=== PATIENT | female | born 1965 | race Caucasian/White ===

== ENCOUNTER → 2017-06-01 09:21 | Outpatient (CLI) | payer OTHER, SELFPAY ==
--- NOTE | 2017-06-01 09:24 | RAD_ITS ---
STUDY: X-RAY CHEST REASON FOR EXAM: Female, 52 years old. 2 month history of cough. TECHNIQUE: PA and lateral views of the chest. COMPARISON: None. FINDINGS: The lungs are clear and expanded. There is no demonstrated pleural abnormality. Normal size heart. Normal mediastinum and apolinar. Normal visualized pulmonary arteries. Normal visualized aortic arch and descending thoracic aorta. Minimal dextroscoliosis. Normal visualized ribs, clavicles, and shoulders. There is no demonstrated abnormality of the visualized soft tissue structures of the upper abdomen. RAD/Chest PA and Lateral IMPRESSION: Normal x-ray examination of the chest. Electronically Signed: Trevon Soni MD at 9:55 EST Tel [phone], Service support ,
== END ==
PROVIDERS: Family Provider Family Medicine; PCP Family Medicine; Visit Provider Family Medicine
DX: R05 Cough (principal)
CPT/HCPCS: 71046

== ENCOUNTER 2017-06-07 14:00 | Outpatient (RCR) | payer OTHER, SELFPAY ==
--- NOTE | 2017-05-24 14:53 | HP.PTEVAL ---
Patient's Visit Information BLANCA TOWNSEND is a 52 year old F referred to Physical Therapy by MD GALLO Castillo with a diagnosis of TMJ. Date of Evaluation: 05/24/17 Physical Therapist: Aparna Liriano - Visit Plan Frequency: 2x /Week Duration: 2 Weeks Plan: Dry Needling and manual to TMJ - Subjective Subjective: Patient reports 2 months ago she started having clicking on the right side of her jaw. Had the same problem a few years ago and it lasted about a month then went away. This episode is not going away. Is now grinding her teeth and feels like she is trying to get it pop and click. Saw massage therapist and she was digging in there and suggested dry needling and physical therapy. Has CANELA secondary to tired jaws. Tension headaches- letting the jaw hang down or glass of wine to relax it goes away. Not normally a CANELA. Crunchy things bother her. Not hard to open just cracks. No pain associated with it opening but when she bites down it aches. No teeth problems- past cavaties but are filled- last time she was the dentist was about a year ago- no x-rays. Pain is right in the TMJ joint- does not radiate. No tinnities or ear pain. No blurred vision or dizziness. No notice of weakness or facial droop. Work: at [employer]- x-rays- no heavy lifting. Sleep: wakes her up- side sleeper- both sides. PMHx: melanoma, polyps of colon, Meds: none. - Objective Posture: good throughout. Cervical ROM: WNL. TMJ ROM: opening: WNL with deviation to the right. Palpation: tender along masseter, pterygoids and SCM - Goals Goal 1:: Patient will be I with HEP and progression Goal Time Frame: 4-6 Weeks Goal 2:: Patient will open her jaw with no deviation Goal Time Frame: 4-6 Weeks Goal 3:: Patient will report 0/10 pain for 1 week Goal Time Frame: 4-6 Weeks - Rehabilitation Potential Physical Therapy Diagnosis: Patient presents with hypomobility- she has decreased normal opening of the jaw and pain daily. Rehabilitation Potential: Good - Anticipated Interventions Patient/Client Instruction: Educate patient on: Benefits of Fitness Program For the Purpose of:: To increase tolerance to activity/condition/position Therapeutic Exercise to Include: Strength training, Endurance training, Postural training Manual Therapy Techniques to Include: Functional dry needling, Soft tissue mobilization For the Purpose of:: To improve nutrient delivery to tissue Thank you for the opportunity to evaluate your patient. For Medicare and Medicare HMO plans, please review the plan of care and approve it. It will need to be FAXED BACK to us at [phone] for Medicare purposes. Please let me know if there are questions or concerns regarding this plan of care. Physician Signature: Date:
--- NOTE | 2017-11-27 13:39 | HP.PT.NRP ---
HP - Discharge Summary (1) - Patient Information BLANCA TOWNSEND was seen in my office for initial evaluation on 05/24/17. The following Plan of Care was established for this patient: Initial Frequency: 2x /Week Initial Duration: 2 Weeks - Anticipated Interventions Patient/Client Instruction: Educate patient on: Benefits of Fitness Program For the Purpose of:: To increase tolerance to activity/condition/position Therapeutic Exercise to Include: Strength training, Endurance training, Postural training Manual Therapy Techniques to Include: Functional dry needling, Soft tissue mobilization For the Purpose of:: To improve nutrient delivery to tissue This patient was last seen in our office . Pertinent comments regarding their Physical therapy will appear below: Patient was to be seen on PRN basis and has not attended PT in 5 months and is appropriate for d/c At this point I will be discontinuing this patient from physical therapy. I would be happy to see this patient again in the future if found appropriate by the physician. Thank you! Aparna Liriano
== END 2017-06-07 19:00 | disposition home or self-care (01) ==
LOC: PT 14:00
PROVIDERS: Family Provider Family Medicine; PCP Family Medicine; Visit Provider Family Medicine
DX: M26.609 Unspecified temporomandibular joint disorder, unspecified side (principal)
CPT/HCPCS: 97140; 97162

== ENCOUNTER → 2017-08-26 10:58 | Outpatient (CLI) | payer OTHER, SELFPAY ==
--- NOTE | 2017-08-26 11:02 | US_ITS ---
STUDY: ULTRASOUND BREAST - LEFT REASON FOR EXAM: Female, 52 years old. Follow-up from previous nodule. TECHNIQUE: Axial and longitudinal images of the LEFT breast were performed with a high resolution ultrasound transducer. COMPARISON: 05/15/2017 FINDINGS: LEFT Breast: Stable appearance of a well-defined likely lymph node measuring 0.7 x 0.5 x 0.2 cm at the 2:00 position 5 cm from the nipple. This hypoechoic nodule containing a fatty hilum. There is no interval change since the previous study. US/Breast Limited Unilateral IMPRESSION: Stable likely benign lymph node in the upper-outer quadrant of left breast. Another six-month follow-up recommended to assure stability ASSESSMENT CATEGORY: BIRADS Category 3: Probably Benign - Short-Interval Follow-up Suggested. A letter regarding these results will be sent to the patient by the facility within 30 days. Electronically Signed: Javier South MD at 7:58 EDT , Service support ,
== END ==
PROVIDERS: Family Provider Family Medicine; PCP Family Medicine; Visit Provider Obstetrics & Gynecology
DX: N63.0 Unspecified lump in unspecified breast (principal)
CPT/HCPCS: 76642

== ENCOUNTER → 2017-09-27 09:27 | Outpatient (CLI) | payer OTHER, SELFPAY ==
--- NOTE | 2017-09-27 09:30 | RAD_ITS ---
STUDY: X-RAY - RIGHT KNEE REASON FOR EXAM: Female, 52 years old. Pain TECHNIQUE: 4 view(s) of the knee. COMPARISON: None. FINDINGS: Normal visualized distal femur. Normal visualized proximal tibia and fibula. Normal proximal tibiofibular articulation. Normal medial femorotibial compartment. Normal lateral femorotibial compartment. Normal patellofemoral articulation. The soft tissue structures are unremarkable. RAD/Knee 4 or More Views IMPRESSION: Normal x-ray examination of the knee. Electronically Signed: John High DO at 23:20 EDT , Service support ,
== END ==
PROVIDERS: Family Provider Family Medicine; PCP Family Medicine; Visit Provider Family Medicine
DX: M25.561 Pain in right knee (principal)
CPT/HCPCS: 73564

== ENCOUNTER 2017-10-06 05:55 | Day surgery (SDC) | payer OTHER, SELFPAY ==
--- NOTE | 2017-10-06 05:55 | DT_ITS ---
This patient was seen during an EMR downtime October 02, 2017 - October 09, 2017. This patient may have a combination of paper and electronic documentation or all paper documentation. All documentation is viewable within the e-chart portion of [facility] for each patient visit.
== END 2017-10-06 07:55 | disposition home or self-care (01) ==
LOC: EN 05:56 → AC 09:18
PROVIDERS: Family Provider Family Medicine; PCP Family Medicine; Visit Provider Surgery
PROC: 0DJD8ZZ Inspection of Lower Intestinal Tract, Via Natural or Artificial Opening Endoscopic (ICD-10-PCS; CPT 45378; principal; 2017-10-06 06:25)
DX: Z12.11 Encounter for screening for malignant neoplasm of colon (principal); Z86.010 Personal history of colon polyps; Z80.0 Family history of malignant neoplasm of digestive organs
CPT/HCPCS: 45378; 99152; 99153; J7120

== ENCOUNTER → 2017-11-16 11:17 | Outpatient (CLI) | payer OTHER, SELFPAY ==
[2017-11-21 15:52] LABS: HPV Reflexed? NOT INDICATED
== END ==
PROVIDERS: Visit Provider Obstetrics & Gynecology
DX: Z12.4 Encounter for screening for malignant neoplasm of cervix (principal)
CPT/HCPCS: 88175; G0145

== ENCOUNTER → 2017-12-01 06:28 | Outpatient (CLI) | payer OTHER, SELFPAY ==
--- NOTE | 2017-12-01 07:00 | MRI_ITS ---
STUDY: MRI BRAIN WITH AND WITHOUT CONTRAST REASON FOR EXAM: Female, 52 years old. Debilitating headaches. History of melanoma. New onset of headaches behind left eye/left temporal area. TECHNIQUE: Standardized multiplanar fat and water weighted pulse sequences were obtained. 6 ml of Gadavist contrast material was administered intravenously for the contrast portion of the examination. COMPARISON: None. FINDINGS: No restricted diffusion throughout the brain parenchyma. No focal signal abnormalities throughout the brain parenchyma. The garcia matter, white matter, ventricles and cisterns are normal. Following IV contrast administration, there are no enhancing lesions extra-axially and intraaxially. Normal size of the ventricles and extra-axial spaces for the patient's age. Normal white matter tracts of the supratentorial brain. Normal bilateral basal ganglia. Normal thalami. There is no extra-axial fluid accumulation. Normal flow voids within the major intracranial circulation suggesting patency by spin echo criteria. Normal venous enhancement. There is no enhancing intra-axial or extra-axial abnormality. Normal sella turcica, pituitary gland, infundibular stalk, optic chiasm and hypothalamus. Normal tectal plate and pineal gland. Normal midbrain, cleopatra and medulla. Normal cerebellum. Normal basal cisterns. Normal bilateral temporal bones. Normal bilateral internal auditory canals. No demonstrated orbital abnormality, within the constraints of a routine brain study. Pronounced the mucosal thickening with complete opacification of the left frontal sinus, pronounced mucosal thickening of the left maxillary sinus and pronounced mucosal thickening of the left ethmoid sinus. Normal calvarium and skull base. Normal visualized soft tissue structures. Normal visualized upper cervical spine. MRI/Brain W/WO Contrast IMPRESSION: 1. Normal MRI of the brain with and without intravenous contrast. 2. Pronounced left-sided sinusitis involving the left frontal sinus, left ethmoid sinus and left maxillary sinus. Electronically Signed: Bartolo Arzola MD at 12:51 EDT , Service support ,
== END ==
PROVIDERS: Family Provider Family Medicine; PCP Family Medicine; Visit Provider Family Medicine
DX: R51 Headache (principal); Z85.820 Personal history of malignant melanoma of skin
CPT/HCPCS: 70553; A9585

== ENCOUNTER → 2018-04-10 09:34 | Outpatient (CLI) | payer OTHER, SELFPAY ==
--- NOTE | 2018-04-10 09:36 | US_ITS ---
STUDY: ULTRASOUND BREAST - LEFT REASON FOR EXAM: Female, 53 years old. Abnormal screening mammogram. TECHNIQUE: Axial and longitudinal images of the LEFT breast were performed with a high resolution ultrasound transducer. COMPARISON: Comparison is made with prior ultrasound of the left breast dated August 26, 2017. FINDINGS: LEFT Breast: Once again, there is a stable appearance of a well-defined hypoechoic nodule with central echogenic hilum measuring 7 mm x 4 mm x 2 mm at the 2:00 position breast at 5 cm from nipple. US/Breast Limited Unilateral IMPRESSION: Stable examination. ASSESSMENT CATEGORY: BIRADS Category 2: Benign. A letter regarding these results will be sent to the patient by the facility within 30 days. Electronically Signed: Trevon Soni MD at 11:09 EST Tel [phone], Service support ,
--- OUTSIDE RECORDS SUMMARY | 2018-05-27 08:47 | XMS RPT_ITS ---
:1965 Author Organization [place] Support Name Relationship Address Phone AP ALFRED Unavailable [id number] + [address] Unavailable [address] + [place] [address] [facility] Unavailable [address] + [place] [address] TIMAAP ARAUZ Unavailable [address] + [place], [place] [id number] [place] [address] [facility] Unavailable [address] + [place] [address] [facility] Unavailable [address] + [place] [address] TIMA AP Unavailable [address] + [place], [place] [id number] [place] [address] + [place] [address] [facility] Unavailable [address] + [place] [address] AP ALFRED Unavailable [address] + [address] Unavailable [address] + [place] [address] [facility] Unavailable [address] + [place] [address] AP ALFRED Unavailable [address] + [address] [facility] Unavailable [address] + [place] [address] [facility] Unavailable [address] + [place] [address] AP ALFRED Unavailable [address] + [place] [address] [place] [facility] Unavailable [address] + [place] [address] [facility] Unavailable [address] + [place] [address] AP ALFRED Unavailable [address] + [place] [address] [place] [facility] Unavailable [address] + [place] [address] [facility] Unavailable [address] + [place] [address] AP ALFRED Unavailable [address] + [place], [place] [address] [place] [address] [facility] Unavailable [address] + [place] [address] [facility] Unavailable [address] + [place] [address] AP ALFRED Unavailable [address] + [place], [place] [address] [place] [address] [facility] Unavailable [address] + [place] [address] [facility] Unavailable [address] + [place] [address] AP ALFRED Unavailable [address] + [place], [place] [id number] [place] [address] [facility] Unavailable [address] + [place] [address] [facility] Unavailable [address] + [place] [address] AP ALFRED Unavailable [address] + [place], [place] [address] [place] [address] [facility] Unavailable [address] + [place] [address] [facility] Unavailable [address] + [place] [address] AP ALFRED Unavailable [address] + [place], [place] [address] [place] [address] [facility] Unavailable [address] + [place] [address] [facility] Unavailable [address] + [place] [address] AP ALFRED Unavailable [address] + [place] [address] [facility] [address] + [place] [address] [facility] Unavailable [address] + [place] [address] AP ALFRED Unavailable [address] + [place], [place] [address] [place] [address] Unavailable [address] + [place] [address] [facility] Unavailable [address] + [place] [address] AP ALFRED Unavailable [address] + [place], [place] [address] [place], [place] [address] Unavailable [address] + [place] [address] [facility] Unavailable [address] + [place] [address] Care Team Providers Name Role Phone Mirtha Connor Attending Unavailable Keon, Chaka Referring Unavailable Mirtha Call Attending Unavailable Mirtha Call Referring Unavailable Keon, Chaka Primary Care Unavailable DOCTOR, OUT OF TOWN Attending Unavailable Jeremiah Thompson Primary Care Unavailable Chaka Herbert Attending Unavailable Keon, Chaka Primary Care Unavailable Keon, Chaka Referring Unavailable KeonChaka garcia Attending Unavailable Keon, Chaka Referring Unavailable Keon, Chaka Primary Care Unavailable KeonChaka garcia Attending Unavailable Keon, Chaka Referring Unavailable Keon, Chaka Primary Care Unavailable Mirtha Call Attending Unavailable Mirtha Call Referring Unavailable Keon, Chaka Primary Care Unavailable Nurse, Surgery Attending Unavailable Keon, Chaka Referring Unavailable KeonChaka garcia Attending Unavailable Keon, Chaka Referring Unavailable Keon, Chaka Primary Care Unavailable Markus Turner Attending Unavailable Markus Turner Referring Unavailable Keon, Chaka Primary Care Unavailable ASSESSMENT, HEALTH RISK Attending Unavailable ASSESSMENT, HEALTH RISK Referring Unavailable Keon, Chaka Primary Care Unavailable Mirtha Call Attending Unavailable Markus Turner Attending Unavailable Keon, Chaka Attending Unavailable Keon, Chaka Referring Unavailable Keno, Chaka Primary Care Unavailable Mirtha Call Attending Unavailable Mirtha Call Referring Unavailable Chaka Herbert Primary Care Unavailable PROBLEMS PROBLEMS DATE TYPE CONDITION / CODE ATTENDING STATUS SOURCE 05/04/2018 Unknown 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, 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, right thumb / [facility] M65.311(ICD-10) Hospital Repository 04/30/2018 Unknown M54.2 - Cervicalgia / Keon Chaka Active [place] M54.2(ICD-10) [facility] Hospital Repository 04/10/2018 Unknown N63.20 - Unspecified Mirtha Call Active [place] lump in the left Community breast, unspecified Hospital quadrant / Repository N63.20(ICD-10) 11/16/2017 Unknown Z12.4 - Encounter for Mirtha Call Active [facility] screening for Community malignant neoplasm of Hospital cervix / Z12.4(ICD-10) Repository 11/17/2017 Unknown Z86.010 - Personal CebuMarkus nieves Active [place] history of colonic Community polyps / Hospital Z86.010(ICD-10) Repository 11/17/2017 Unknown Z80.0 - Family history Markus Turner Active [facility] of malignant neoplasm Community of digestive organs / Hospital Z80.0(ICD-10) Repository 08/26/2017 Unknown N63.0 - Unspecified Mirtha Call Active [place] lump in unspecified Community breast / N63.0(ICD-10) Hospital Repository 11/27/2017 Unknown M26.609 - Unspecified Chaka Herbert Active [place] temporomandibular [facility] joint disorder, Hospital unspecified side / Repository M26.609(ICD-10) PROCEDURES PROCEDURES No Procedure Records FoundRESULTS RESULTS SCREENING MAMM (CAD), Observed: 05/17/2018 Status: F Source: [place] BILAT 1:37 PM [facility] REPOSITORY [facility] Imaging Services [address] [place] [address] SCREENING MAMM (CAD), BILAT MR#: [id number] Acct: [id number] Name: NADINE TOWNSEND Rep #: [id number] : 1965 F 53 From: Trevon Soni MD PCP: Chaka Herbert MD Status: REG CLI Study: SCREENING MAMM (CAD), BILAT Date of Exam: 05/17/18 Exam# [id number] Ordering Dr: Mirtha Call MD MAMMOGRAPHY - BILATERAL SCREENING REASON FOR EXAM: Female, 53 years old. Routine annual screening examination. PERTINENT HISTORY: Non-contributory. TECHNIQUE: Digital bilateral breast katie (3D mammographic acquisition) in the CC and MLO projections. 2-D mediolateral oblique (MLO) and craniocaudad (CC) views of both breasts were obtained. CAD: Full Field Digital Mammography with Computer Added Detection was performed. COMPARISON: Comparison is made with prior study dated May 11, 2017 and April 22, 2016. FINDINGS: Breast Composition: The breasts are heterogeneously dense, which may obscure small masses. There are no dominant masses or suspicious calcifications. No other significant abnormalities are identified. There has been no significant change since the prior study. BI/SCREENING MAMM (CAD), BILAT IMPRESSION: Stable bilateral screening mammogram. Yearly follow-up mammogram recommended. (A) ASSESSMENT CATEGORY: BIRADS Category 2: Benign. A letter regarding these results will be sent to the patient by the facility within 30 days. Approximately 10% of breast cancers are not detected by mammography. A normal mammogram should not delay biopsy of a clinically suspicious abnormality. [id number] Electronically Signed: Trevon Soni MD at 14:50 EST Tel [phone], Service support , CC: Mirtha Call MD; Chaka Herbert MD Woven Label Designer: Signed ORTHOPEDIC VISIT Observed: 05/04/2018 Status: F Source: [place] REPORT 11:16 AM [facility] [place] [facility] [address] [place] [address] OFFICE VISIT Date of Service: 05/04/18 MR#: [id number] Acct: [id number] Name: NADINE TOWNSEND Rep #: [id number] : 1965 Provider: Mirtha Connor DO Age/Sex: 53/F [place] [facility] [place]: Signed Intake Intake Visit Reasons: right thumb Allergies latex Allergy (Intermediate, Verified 09/09/14 09:33) Rash Penicillins Allergy (Intermediate, Verified 09/09/14 09:33) HIVES ?? Medications Ibuprofen [Motrin] 800 mg PO TID PRN PRN #60 tab 09/15/14 [Rx] Oxycodone HCl/Acetaminophen [Percocet 5/325] 1 - 2 tab PO Q4H PRN PRN #20 tab 09/15/14 [Rx] sodium,potassium,mag sulfates 17.5 gram-3.13 gram-1.6 gram oral soln 200 ml PO ONCE #354 ml 09/07/17 [Rx] PFSH Social History Smoking Status: Never smoker HPI right thumb: Details: NADINE TOWNSEND is a 53 year old F here today for right trigger thumb. It is getting worse over the last month. She denies any OT or xrays. Denies numbness, tingling or other associated symptoms. Ortho Exam Right Wrist/Hand Skin/Wound: Yes CDI Contralateral Normal: Yes A1 lorne trigger: Yes WRIST: right thumb trigger Office Procedures Ortho Injections Injections Yes Trigger Finger Injection Right Details: Obtained consent for injection. Under sterile conditions, injected the patients right thumb A1 lorne with 1cc bupivacaine and 1/2cc kenalog. The patient tolerated the injection well without any noted complication. Patient should call our office if redness develops, pain worsens or if they have any concerns. Office Meds Kenalog Performing Provider: Mirtha Connor DO Administered by: Mirtha Connor DO on 05/04/18 09:34 Dose Route Admin Location Lot Number Expiration DateNDC Crank Hand 20 mg Tendon Sheath Iright trigger [id number] 06/30/19 3185-6838-25 [facility]. humb SQUIBB Assessment AND Plan 1. Trigger thumb, right thumb M65.311 Plan xrays of hand completed. see chart for further details. Reviewed the risk and benefits of steroid injection, if this fails we will discuss a release. She has palpable nodule and triggering on exam. Follow up 3-4 months if needed or sooner if pain, swelling, numbness or associated symptoms, or concerns develop. All questions answered. Patient in agreement of plan. Orders Orders: Medications Discontinued: Kenalog (triamcinolone acetonide) [id number] mg (0.5 mL) Tendon Sheath Inj. ONCE 0.5 mL nued Reason: Office Medication has been Docu 0RF NS mented as given Coding Level of Care Code Off vis,new,level 3 Diagnoses Trigger thumb, right thumb M65.311 Additional Codes casualty claim adjuster.trig ([id number]) 05/04/18 1116 <Electronically signed by Mirtha Connor DO> Date Mirtha Connor DO Cosigner Signature: Date (if applicable) CC: DISCHARGE SUMMARY Observed: 04/30/2018 Status: F Source: [place] 11:02 AM [facility] [place] [facility] Medical Records Department [address] [place] [address] Discharge Summary 04/30/18 1058 MR#: [id number] Acct: [id number] Name: NADINE TOWNSEND Rep #: [id number] : 1965 53 From: Katie Hickman PCP: Chaka Herbert MD Status: REG RCR Y Location: [facility] Discharge Summary: Discharge Date: 04/30/2018 Nadine was seen for a massotherapy evaluation on 05/18/2017 with the diagnosis of back pain. She was treated with ten sessions of massage therapy consisting of deep pressure soft tissue techniques, myofascial release and trigger point compression to her cervical, thoracic, lower back, upper extremities and hips. Nadine responded well to the therapy by reporting decreased tension and pain throughout her head, neck, shoulders, lower back and hips. Her goals for therapy were met throughout the treatment sessions. At this time this patient is being discharged from our care at [facility]. 04/30/18 1102 <Electronically signed by Katie Hickman > Date Katie Hickman Cosigner Signature (if applicable): Date CC: Katie Hickman; Chaka Herbert MD Signed BREAST LIMITED Observed: 04/10/2018 Status: F Source: [place] UNILATERAL 9:38 AM [facility] [place] [facility] Imaging Services [address] [place] [address] Breast Limited Unilateral MR#: [id number] Acct: [id number] Name: NADINE TOWNSEND Mirta Rep #: [id number] : 1965 F 53 From: Trevon Soni MD PCP: Chaka Herbert MD Status: REG CLI Study: Breast Limited Unilateral Date of Exam: 04/10/18 Exam# [id number] Ordering Dr: Mirtha Call MD STUDY: ULTRASOUND BREAST - LEFT REASON FOR EXAM: Female, 53 years old. Abnormal screening mammogram. TECHNIQUE: Axial and longitudinal images of the LEFT breast were performed with a high resolution ultrasound transducer. COMPARISON: Comparison is made with prior ultrasound of the left breast dated August 26, 2017. FINDINGS: LEFT Breast: Once again, there is a stable appearance of a well-defined hypoechoic nodule with central echogenic hilum measuring 7 mm x 4 mm x 2 mm at the 2:00 position breast at 5 cm from nipple. US/Breast Limited Unilateral IMPRESSION: Stable examination. ASSESSMENT CATEGORY: BIRADS Category 2: Benign. A letter regarding these results will be sent to the patient by the facility within 30 days. Electronically Signed: Trveon Soni MD at 11:09 EST Tel [phone], Service support , CC: Mirtha Call MD; Chaka Herbert MD Woven Label Designer: Signed BRAIN W/WO CONTRAST Observed: 12/01/2017 Status: F Source: [place] 6:36 AM [facility] [place] [facility] Imaging Services [address] [place] [address] Brain W/WO Contrast MR#: [id number] Acct: [id number] Name: NADINE TOWNSEND Rep #: [id number] : 1965 F 52 From: Bartolo Arzola MD PCP: Chaka Herbert MD Status: REG CLI Study: Brain W/WO Contrast Date of Exam: 12/01/17 Exam# [id number] Ordering Dr: Chaka Herbert MD STUDY: MRI BRAIN WITH AND WITHOUT CONTRAST REASON FOR EXAM: Female, 52 years old. Debilitating headaches. History of melanoma. New onset of headaches behind left eye/left temporal area. TECHNIQUE: Standardized multiplanar fat and water weighted pulse sequences were obtained. 6 ml of Gadavist contrast material was administered intravenously for the contrast portion of the examination. COMPARISON: None. FINDINGS: No restricted diffusion throughout the brain parenchyma. No focal signal abnormalities throughout the brain parenchyma. The garcia matter, white matter, ventricles and cisterns are normal. Following IV contrast administration, there are no enhancing lesions extra-axially and intraaxially. Normal size of the ventricles and extra-axial spaces for the patient's age. Normal white matter tracts of the supratentorial brain. Normal bilateral basal ganglia. Normal thalami. There is no extra-axial fluid accumulation. Normal flow voids within the major intracranial circulation suggesting patency by spin echo criteria. Normal venous enhancement. There is no enhancing intra-axial or extra-axial abnormality. Normal sella turcica, pituitary gland, infundibular stalk, optic chiasm and hypothalamus. Normal tectal plate and pineal gland. Normal midbrain, cleopatra and medulla. Normal cerebellum. Normal basal cisterns. Normal bilateral temporal bones. Normal bilateral internal auditory canals. No demonstrated orbital abnormality, within the constraints of a routine brain study. Pronounced the mucosal thickening with complete opacification of the left frontal sinus, pronounced mucosal thickening of the left maxillary sinus and pronounced mucosal thickening of the left ethmoid sinus. Normal calvarium and skull base. Normal visualized soft tissue structures. Normal visualized upper cervical spine. MRI/Brain W/WO Contrast IMPRESSION: 1. Normal MRI of the brain with and without intravenous contrast. 2. Pronounced left-sided sinusitis involving the left frontal sinus, left ethmoid sinus and left maxillary sinus. Electronically Signed: Bartolo Arzola MD at 12:51 EDT , Service support , CC: Chaka Herbert MD Woven Label Designer: Signed PAP I-G W/RFX HRHPV Collected: 11/16/2017 Status: F Source: [place] 10:20 AM [facility] [place] Order Comment: CYTOLOGY INFORMATION: - CLINICAL INFORMATION: - DATE LMP/MENOPAUSE: MENOPAUSE - COLLECTION VIAL: Thin Prep Vial - BOAT DECKHAND SOURCE: CERVICAL/ENDOCERVICAL - COLLECTION TECHNIQUE: BRUSH/SPATULA Specimen Comment: [id number] Specimen Comment: No. of containers..01 ThinPrep Vial TYPE CODE TESTS RESULT OUT OF RANGE REFERENCE UNITS LAB L7400.0800 . Normal DIAGN Comment Result Comment: NEGATIVE FOR INTRAEPITHELIAL LESION AND MALIGNANCY. CELLULAR CHANGES ASSOCIATED WITH ATROPHY ARE PRESENT. LAB L7400.0900 . Normal ADEQ Comment Result Comment: Satisfactory for evaluation. Endocervical and/or squamous metaplastic cells (endocervical component) are present. LAB L7400.1400 . Normal PERFORM Comment Result Comment: Azucena Neumann, Energy Control Officer (ASCP) LAB L7400.3645 . Normal TEST METHOD Comment Result Comment: This liquid based ThinPrep(R) pap test was screened with the use of an image guided system. LAB L7400.2600 . Normal . COMM LAB L7400.2700 . Normal PAPSMR Comment Result Comment: The Pap smear is a screening test designed to aid in the detection of premalignant and malignant conditions of the uterine cervix. It is not a diagnostic procedure and should not be used as the sole means of detecting cervical cancer. Both false-positive and false-negative reports do occur. LAB L7400.2800 . Normal HPV RFLX Comment Result Comment: The HPV DNA reflex criteria were not met with this specimen result therefore, no HPV testing was performed. Performed at: [facility] [address] [id number] Gl Accountant: Letty Thompson MD, Phone: [phone] Performed By: #### L7400.0350 #### [facility] (refer to report for specific site) refer to report for address and phone number NICOTINE URINE DRUG Collected: 10/26/2017 Status: F Source: [place] SCREEN 7:40 AM [facility] [place] TYPE CODE TESTS RESULT OUT OF RANGE REFERENCE UNITS LAB L505.6250 TO BE Normal CONFIRMED Result Comment: CONFIRMATORY TESTING FOR ALL POSITIVE URINE DRUG SCREEN RESULTS WILL ONLY BE SENT OUT UPON PHYSICIAN ORDER. The results of Urine Drug Screen methods provide only preliminary analytical test results. A more specific alternate chemical method must be used in order to obtain a confirmed analytical result. Gas chromatography/mass spectrometery (GC/MS) is the preferred confirmatory method. Clinical consideration and professional judgement should be applied to any drug of abuse test result, particularly when preliminary positive results are used. LAB L505.6270 <200 ng/mL Normal COT DRG Negative SCREEN Result Comment: Cotinine is the first-stage metabolite of Nicotine. Performed By: #### L505.6240 #### [facility] [address] [place], [address] CBC, EMPLOYEE Collected: 10/26/2017 Status: F Source: [place] 7:40 AM [facility] [place] TYPE CODE TESTS RESULT OUT OF RANGE REFERENCE UNITS LAB L100.1000 4.4-11.0 K/mm3 Normal WBC 6.5 LAB L100.1200 4.2-5.4 M/mm3 Normal RBC 4.25 LAB L100.1300 12.0-15.0 g/dl Normal HGB 14.0 LAB L100.1400 37-47 % Normal HCT 42.4 LAB L100.1500 81-99 fL High MCV 99.8 LAB L100.1600 27.0-32.0 pg High MCH 32.9 LAB L100.1700 32-36 g/gl Normal MCHC 33.0 LAB L100.1810 11.6-14.6 % Normal RDW CV 12.2 LAB L100.1820 35.1-43.9 fl High RDW SD 44.3 LAB L100.1900 150-450 K/mm3 Normal PLT 334 LAB L100.2000 6.2-12.0 fl Normal MPV 10.2 LAB L100.2110 47-70 % Low NEUT% 44.6 LAB L100.2210 19-41 % Normal LY% 34.3 LAB L100.2310 0-10 % High MONO% 10.8 LAB L100.2410 0-5 % High EO% 9.1 LAB L100.2510 0-1 % Normal BASO% 0.9 LAB L100.2620 2.0-7.7 X10 3/uL Normal Absolute Neut 2.9 LAB L100.2720 0.83-4.51 X10 3/ul Normal Absolute Lymph 2.22 Performed By: #### L100.0200 #### [facility] [address] [place], [place], [address] [employer], EMPLOYEE Collected: 10/26/2017 Status: F Source: [place] 7:40 AM [facility] [place] TYPE CODE TESTS RESULT OUT OF RANGE REFERENCE UNITS LAB L400.3000 Yellow COLOR Normal Yellow LAB L400.3050 Clear Normal CLARITY Clear LAB L400.3200 Normal mg/dl Normal GLUCOSE, UR Normal LAB L400.3300 Negative mg/dL Normal BILIRUBIN URINE Negative LAB L400.3400 Negative mg/dl Normal KETONE UR Negative LAB L400.3465 1.002-1.030 Normal SP.GR. DIPSTX 1.010 LAB L400.3550 5.0 - 8.0 pH UR Normal 7.0 LAB L400.3600 Negative mg/dl PROT Normal DIPSTX Negative LAB L400.3700 Normal mg/dl Normal UROBILI Normal LAB L400.3750 Negative Normal NITRITE UR Negative LAB L400.3780 Negative /ul Normal OCCULT BLOOD-UR Negative LAB L400.3800 Negative /ul LEUK Normal ESTERASE Negative Performed By: #### L400.0100 #### [facility] [address] [place], [address] EMPLOYEE PROFILE Collected: 10/26/2017 Status: F Source: [place] 7:40 AM [facility] [place] TYPE CODE TESTS RESULT OUT OF RANGE REFERENCE UNITS LAB L501.0100 74-106 mg/dL Normal GLU 89 Result Comment: Please note revised GLUCOSE reference range effective 2017. LAB L501.1000 7-18 mg/dL Normal BUN 15 LAB L501.1100 0.55-1.02 mg/dL Normal CREAT,SERUM 0.67 Result Comment: The validity of the calculated GFR AND GFRAA in patients over 70 years has not been determined. Clinical correlation is essential. LAB L501.1110 >60 mL/min Normal EST GFR 97 Result Comment: Non- GFR Calc LAB L501.1115 >60 mL/min Normal EST GFR - AA 117 Result Comment: GFR Calc LAB L501.1300 10-20 RATIO High BUN/CRE 22.3 LAB L501.1400 2.6-6.0 mg/dL Normal URIC 4.8 Result Comment: The drugs N-Acetylcysteine and Metamizole may falsely depress this assay. LAB L501.1500 6.4-8.2 g/dL Normal T PROT 7.8 LAB L501.1800 3.2-5.0 g/dL Normal ALB 4.1 LAB L501.1950 2.2-4.2 g/dL Normal GLOB 3.7 LAB L501.2000 0.9-2.4 RATIO Normal A/G 1.1 LAB L501.2200 8.5-10.1 mg/dL Normal CA 9.0 LAB L501.2300 2.5-4.9 mg/dL Normal PHOS 3.3 LAB L501.4100 15-37 U/L Normal AST 16 LAB L501.4305 45-117 U/L Normal ALK P 88 LAB L501.4405 13-56 U/L Normal ALT 26 LAB L501.4600 0.20-1.00 mg/dL Normal T BILI 0.70 LAB L501.4700 0.00-0.30 mg/dL Normal D BILI 0.11 LAB L501.4900 200 mg/dL High CHOL 214 Result Comment: <200 mg/dL Desirable 200-240 mg/dL Borderline >240 mg/dL High Risk LAB L501.5000 mg/dL Normal TRIG 128 Result Comment: The drugs N-Acetylcysteine and Metamizole may falsely depress this assay. Serum Triglycerides Reference Interval Normal <150 mg/dL Borderline high 150 - 199 mg/dL High 200 - 499 mg/dL Very High > or = 500 mg/dL LAB L501.5300 136-145 mmol/L Normal NA 138 LAB L501.5600 3.5-5.1 mmol/L Normal K 4.0 LAB L501.5900 98-107 mmol/L Normal CL 104 LAB L501.6100 21.0-32.0 mmol/L Normal CO2 28.0 LAB L501.6200 5-15 Normal 6 GAP LAB L501.6400 mg/dL Normal HDL 89 Result Comment: The drugs N-Acetylcysteine and Metamizole may falsely depress this assay. Reference Range HDL <40 mg/dL Low HDL Cholesterol HDL >or= 60 mg/dL High HDL Cholesterol LAB L501.6475 Normal CHOL:HDL 2.40 LAB L501.6500 0-130 mg/dL Normal LDL 99 LAB L501.6600 5-40 mg/dL Normal VLDL 26 LAB L504.2610 84-246 U/L Normal LDH 172 Performed By: #### L500.2900 #### [facility] [address] [place], [address] DOWNTIME REPORT Observed: 10/18/2017 Status: F Source: [place] 1[facility]14 PM [facility] [facility] [place] REPOSITORY [facility] Medical Records Department [address] [place] [address] Downtime Report MR#: [id number] Acct: [id number] Name: NADINE TOWNSEND Rep #: [id number] : 1965 52 From: Jose Rafael Pires MD PCP: Chaka Herbert MD Status[place] [facility] [place] was seen during an EMR downtime October 02, 2017 - October 09, 2017. This patient may have a combination of paper and electronic documentation or all paper documentation. All documentation is viewable within the e-chart portion of [employer] for each patient visit. KNEE 4 OR MORE Observed: 09/27/2017 Status: F Source: [place] VIEWS 9:30 AM [facility] [place] [facility] [facility] Imaging Services [address] [place] [address] Knee 4 or More Views MR#: [id number] Acct: [id number] Name: NADINE TOWNSEND Rep #: [id number] : 1965 F 52 From: John High PCP: Chaka Herbert Status: REG CLI Study: Knee 4 or More Views Date of Exam: 09/27/17 Exam# [id number] Ordering Dr: Chaka Herbert MD STUDY: X-RAY - RIGHT KNEE REASON FOR EXAM: Female, 52 years old. Pain TECHNIQUE: 4 view(s) of the knee. COMPARISON: None. FINDINGS: Normal visualized distal femur. Normal visualized proximal tibia and fibula. Normal proximal tibiofibular articulation. Normal medial femorotibial compartment. Normal lateral femorotibial compartment. Normal patellofemoral articulation. The soft tissue structures are unremarkable. RAD/Knee 4 or More Views IMPRESSION: Normal x-ray examination of the knee. Electronically Signed: John High DO at 23:20 EDT , Service support , CC: Chaka Herbert Woven Label Designer: Signed BREAST LIMITED Observed: 08/26/2017 Status: F Source: MELISSA UNILATERAL 11:03 AM [facility] [place] [facility] [facility] Imaging Services [address] [place] [address] Breast Limited Unilateral MR#: [id number] Acct: [id number] Name: NADINE TOWNSEND Rep #: [id number] : 1965 F 52 From: Chintan South MD PCP: Chaka Herbert Status: REG CLI Study: Breast Limited Unilateral Date of Exam: 08/26/17 Exam# [id number] Ordering Dr: Mirtha Call MD STUDY: ULTRASOUND BREAST - LEFT REASON FOR EXAM: Female, 52 years old. Follow-up from previous nodule. TECHNIQUE: Axial and longitudinal images of the LEFT breast were performed with a high resolution ultrasound transducer. COMPARISON: 05/15/2017 FINDINGS: LEFT Breast: Stable appearance of a well-defined likely lymph node measuring 0.7 x 0.5 x 0.2 cm at the 2:00 position 5 cm from the nipple. This hypoechoic nodule containing a fatty hilum. There is no interval change since the previous study. US/Breast Limited Unilateral IMPRESSION: Stable likely benign lymph node in the upper-outer quadrant of left breast. Another six-month follow-up recommended to assure stability ASSESSMENT CATEGORY: BIRADS Category 3: Probably Benign - Short-Interval Follow- up Suggested. A letter regarding these results will be sent to the patient by the facility within 30 days. Electronically Signed: Javier South MD at 7:58 EDT , Service support , CC: Mirtha Call MD; Chaka Herbert Woven Label Designer: Signed CHEST PA AND LATERAL Observed: 06/01/2017 Status: F Source: MELISSA 9:24 AM [facility] Imaging Services [address] [place] [address] Chest PA and Lateral MR#: [id number] Acct: [id number] Name: NADINE TOWNSEND Rep #: [id number] : 1965 F 52 From: Trevon Soni MD PCP: Chaka Herbert Status: REG CLI Study: Chest PA and Lateral Date of Exam: 06/01/17 Exam# [id number] Ordering Dr: Chaka Herbert MD STUDY: X-RAY CHEST REASON FOR EXAM: Female, 52 years old. 2 month history of cough. TECHNIQUE: PA and lateral views of the chest. COMPARISON: None. FINDINGS: The lungs are clear and expanded. There is no demonstrated pleural abnormality. Normal size heart. Normal mediastinum and apolinar. Normal visualized pulmonary arteries. Normal visualized aortic arch and descending thoracic aorta. Minimal dextroscoliosis. Normal visualized ribs, clavicles, and shoulders. There is no demonstrated abnormality of the visualized soft tissue structures of the upper abdomen. RAD/Chest PA and Lateral IMPRESSION: Normal x-ray examination of the chest. Electronically Signed: Trevon Soni MD at 9:55 EST Tel [phone], Service support , CC: Chaka Herbert Woven Label Designer: Signed INITAL EVALUATION (1) Observed: 05/24/2017 Status: F Source: [facility] 2:54 PM [facility] [place] [facility] Physical Therapy Health[address] [place] [address] Fax REHABILITATION SERVICES INITIAL EVALUATION MR#: [id number] Acct: [id number] Name: NADINE TOWNSEND Rep #: [id number] : 1965 52 From: Aparna Liriano DPT Referring Dr.: Chaka Herbert Status: REG RCR Insurance: [facility] SELF PAY INSURANCE Patient's Visit Information NADINE TOWNSEND is a 52 year old F referred to Physical Therapy by MD GALLO Castillo with a diagnosis of TMJ. Date of Evaluation: 01/24/18 Physical Therapist: Aparna Liriano - Visit Plan Frequency: 2x /Week Duration: 2 Weeks Plan: Dry Needling and manual to TMJ - Subjective Subjective: Patient reports 2 months ago she started having clicking on the right side of her jaw. Had the same problem a few years ago and it lasted about a month then went away. This episode is not going away. Is now grinding her teeth and feels like she is trying to get it pop and click. Saw massage therapist and she was digging in there and suggested dry needling and physical therapy. Has CANELA secondary to tired jaws. Tension headaches- letting the jaw hang down or glass of wine to relax it goes away. Not normally a CANELA. Crunchy things bother her. Not hard to open just cracks. No pain associated with it opening but when she bites down it aches. No teeth problems- past cavaties but are filled- last time she was the dentist was about a year ago- no x-rays. Pain is right in the TMJ joint- does not radiate. No tinnities or ear pain. No blurred vision or dizziness. No notice of weakness or facial droop. Work: at [employer]- x-rays- no heavy lifting. Sleep: wakes her up- side sleeper- both sides. PMHx: melanoma, polyps of colon, Meds: none. - Objective Posture: good throughout. Cervical ROM: WNL. TMJ ROM: opening: WNL with deviation to the right. Palpation: tender along masseter, pterygoids and SCM - Goals Goal 1:: Patient will be I with HEP and progression Goal Time Frame: 4-6 Weeks Goal 2:: Patient will open her jaw with no deviation Goal Time Frame: 4-6 Weeks Goal 3:: Patient will report 0/10 pain for 1 week Goal Time Frame: 4-6 Weeks - Rehabilitation Potential Physical Therapy Diagnosis: Patient presents with hypomobility- she has decreased normal opening of the jaw and pain daily. Rehabilitation Potential: Good - Anticipated Interventions Patient/Client Instruction: Educate patient on: Benefits of Fitness Program For the Purpose of:: To increase tolerance to activity/condition/position Therapeutic Exercise to Include: Strength training, Endurance training, Postural training Manual Therapy Techniques to Include: Functional dry needling, Soft tissue mobilization For the Purpose of:: To improve nutrient delivery to tissue Thank you for the opportunity to evaluate your patient. For Medicare and Medicare HMO plans, please review the plan of care and approve it. It will need to be FAXED BACK to us at [phone] for Medicare purposes. Please let me know if there are questions or concerns regarding this plan of care. Physician Signature: Date: <Electronically signed by Aaprna Liriano DPT> 05/24/17 1454 CC: Chaka Herbert ELR Signed For Medicare only, by signing this I certify the plan of care. Physicians Signature Date ALLERGIES ALLERGIES DATE TYPE / CODE NAME / CODE REACTION SEVERITY SOURCE 09/09/2014 Drug Penicillins/ HIVES ?? [place] [facility] Allergy/4160 [id number]([facility] 49998(SNOMED XNORM) Repository CT) 09/09/2014 Drug latex/[id number] Rash [place] [facility] Allergy/4160 8921(RXNORM) [place] 0199002(SNOMED Repository CT) ENCOUNTERS ENCOUNTERS ADMIT/DISCHARGE ACCOUNT ADMITTING ENCOUNTER LOCATION SOURCE NUMBER CLASS 05/17/2018 [id number] Ambulatory Melissa Melissa 2 [facility] ing:OPBI Repository 05/04/2018/ [id number] Ambulatory BMSBuilding:B [place] 9 5 [facility] Repository 04/28/2018/ [id number] Ambulatory Melissa [place] 8 3 [facility] ing:MASS Repository 04/10/2018 [id number] Ambulatory [place] Melissa 2 [facility] ing:OPUS Repository 12/01/2017 [id number] Ambulatory [place] 2 [facility] ing:MRI Repository 11/16/2017 [id number] Ambulatory [place] Melissa 9 [facility] ing:LABSPEC Repository 10/30/2017 [id number] Ambulatory Melissa [place] 0 [facility] ing:MASS Repository 10/26/2017 [id number] Ambulatory [place] 6 [facility] ing:EMPH Repository 10/06/2017/ [id number] Ambulatory [place] Melissa 8 1 [facility] ing:EN Repository 10/06/2017 [id number] Ambulatory BMSBuilding:B [place] 1 [facility] Repository 09/27/2017 [id number] Ambulatory Melissa Melissa 0 [facility] ing:MTRAD Repository 09/07/2017/ [id number] Ambulatory BMSBuilding:B [place] 8 3 [facility] Repository 08/26/2017 [id number] Ambulatory [place] 8 [facility] ing:US Repository 06/07/2017/ [id number] Ambulatory [place] 8 3 [facility] ing:PT Repository 06/01/2017 [id number] Ambulatory [place] Melissa 2 [facility] ing:HPRAD Repository PAYERS PAYERS ENCOUNTER GUARANTOR PAYER SUBSCRIBER SOURCE 05/17/2018 [place] Primary Insurance:[facility] NADINE Torres [id number] [facility]: [facility] [id number] Number: Repository [address]Wyv: (220) [id number] [phone] (HP) Date:8076-68-51VK [address] [address]TEBWVG[place], [place] [address]SD: CHECK WEBSITE 05/17/2018 Secondary NOT GIVENUNK [place] Insurance:SELF PAY [facility] Number: Effective Repository Date:2017-11-17 05/04/2018 [place]ICO Weathers Primary Insurance:[facility] NADINE Torres [id number] [facility]: [facility] [id number] Number: Repository [address]Nvz: (013) [id number] [phone] (HP) Date:6202-81-59OV [address] [address]FGUFDKLHL, [place] [address]HP: CHECK WEBSITE 05/04/2018 Secondary NOT GIVENUNK [place] Insurance:SELF PAY [facility] Number: Effective Repository Date:2018-05-04 04/28/2018 [place]ICO Weathers Primary Insurance:[facility] NADINE Nieves Melissa [id number] [facility] [id number], [place] Number: Repository [address]Rrb: 330 [id number] [phone] () Date:3284-51-93KI [address] [address]PYWKFSLRX, [place] [address]NJ: CHECK WEBSITE 04/28/2018 Secondary NOT GIVENUNK Melissa Insurance:SELF PAY [facility] Number: Effective Repository Date:2017-04-11 04/10/2018 [place]ICO Weathers Primary Insurance:[facility] NADINE Nieves [place] [id number] [facility]: [facility] [id number], [place] Number: Repository [address]Imy: 330 [id number] [phone] () Date:9454-39-68DP [address] [address]VDPFEZOYY, [place] [address]KY: CHECK WEBSITE 04/10/2018 Secondary NOT GIVENUNK [place] Insurance:SELF PAY [facility] Number: Effective Repository Date:2018-03-29 12/01/2017 [place] Primary Insurance:[facility] NADINE Moraoster [id number] [facility] [id number], [place] Number: Repository [address]Xxd: 330 [id number] [phone] () Date:6875-65-41TR [address] [address]GRPXNQEVA, [place] [address]PJ: CHECK WEBSITE 12/01/2017 Secondary NOT GIVENUNK Melissa Insurance:SELF PAY [facility] Number: Effective Repository Date:2017-11-17 11/16/2017 [place] Primary Insurance:[facility] NADINE Nieves Melissa [id number] [facility] 2710-68-76CZRWashington, [place] Number: Repository [address]Iup: (330 [id number] [phone] () Date:6531-90-72SC [address] [address]CFZVSIDQM, [place] [address]TL: CHECK WEBSITE 11/16/2017 Secondary NOT GIVENUNK Melissa Insurance:SELF PAY [facility] Number: Effective Repository Date:2017-11-16 10/30/2017 [place] Weather[place] Primary NOT GIVENUNK [place] [id number] Insurance:SELF PAY [place] Number: Effective Repository [address]Irv: (330) Date:2015-06-30 [phone] () 10/26/2017 [place] Primary NOT GIVENUNK [place] [id number] Insurance:SELF PAY [place] Number: Effective Repository [address]Bkv: (330) Date:2017-10-26 [phone] () 10/06/2017 [place] Primary Insurance:[facility] NADNIE L Melissa [id number] [facility] [id number], [place] Number: Repository [address]Whp: [id number] [phone] Date:9637-55-89VD [address] () [address]NKAJNFWFS, [place] [address]EL: CHECK WEBSITE 10/06/2017 Secondary NOT GIVENUNK Melissa Insurance:SELF PAY [facility] Number: Effective Repository Date:2017-09-07 10/06/2017 [place] Primary Insurance:[facility] NADINE L Melissa [id number] [facility]: [facility] 3197-11-68NKFWashington, [place] Number: Repository [address]Sjz: 330 [id number] [phone] () Date:3338-24-73NK [address] [address]CIOKJUALB, [place] [address]IN: CHECK WEBSITE 10/06/2017 Secondary NOT GIVENUNK Melissa Insurance:SELF PAY [facility] Number: Effective Repository Date:2017-10-06 09/27/2017 [place] Primary Insurance:[facility] NADINE L [place] [id number] [facility] [id number], [place] Number: Repository [address]Vsj: [id number] [phone] Date:9498-39-93ZH [address] (HP) [address]RBJDVRJRL, [place] [address]MU: CHECK WEBSITE 09/27/2017 Secondary NOT GIVENUNK [place] Insurance:SELF PAY [facility] Number: Effective Repository Date:2017-09-27 09/07/2017 [place] Primary Insurance:[facility] NADINE Torres [id number] [facility] [id number], [place] Number: Repository [id number]: [id number] [phone] Date:6344-81-72LG [address] () [address]HKLOBHGYU, [place] [address]OH: CHECK WEBSITE 09/07/2017 Secondary NOT GIVENUNK Melissa Insurance:SELF PAY [facility] Number: Effective Repository Date:2017-09-07 08/26/2017 [place]s Primary Insurance:[facility] NADINE [id number] [facility] 0423-04-06VNPWashington, [place] Number: Repository [address]Jpe: [id number] [phone] Date:2950-25-48RD [address] () [address]NFAEKNGMC, [place] [address]EB: CHECK WEBSITE 08/26/2017 Secondary NOT GIVENUNK Melissa Insurance:SELF PAY [facility] Number: Effective Repository Date:2017-07-26 06/07/2017 [place] Weathers Primary Insurance:[facility] NADINE SANB: Melissa [id number] [facility] [id number], [place] Number: Repository [address]Sgc: [id number] [phone] Date:0777-74-32DF [address] () [address]KFSTYAQUT, [place] [address]VN: CHECK WEBSITE 06/07/2017 Secondary NOT GIVENUNK Melissa Insurance:SELF PAY [facility] Number: Effective Repository Date:2017-05-17 06/01/2017 [place] Primary Insurance:[facility] NADINE AKUASAMUELB: Melissa [id number] [facility] [id number] [place], [place] Number: Repository [address]Oct: [id number] [phone] Date:0697-27-08KV [address] () [address]KEZTBYGOD, [place] [address]XU: CHECK WEBSITE 06/01/2017 Secondary NOT GIVENUNK Melissa Insurance:SELF PAY [facility] Number: Effective Repository Date:2017-06-01
== END ==
PROVIDERS: Family Provider Family Medicine; PCP Family Medicine; Referring Provider Obstetrics & Gynecology; Visit Provider Obstetrics & Gynecology
DX: N63.20 Unspecified lump in the left breast, unspecified quadrant (principal); R92.8 Other abnormal and inconclusive findings on diagnostic imaging of breast
CPT/HCPCS: 76642

== ENCOUNTER 2018-04-28 11:00 | Outpatient (RCR) | payer OTHER, SELFPAY ==
--- NOTE | 2017-05-18 12:44 | MASS.EVAL ---
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 She was referred to the [facility] facility for a massotherapy evaluation by Dr. Chaka Herbert with the diagnosis of back and neck pain. Nadine presents today with the symptoms of tension and pain in her neck, upper back and lower back. She reports having a medical history of exzema, melanoma and TMJ dysfunction. She reports having minimal limitations during his daily activities currently. OBJECTIVE: Upon observation Nadine has poor posture with her head forward and shoulders forward from the neutral position in sitting and standing. After examination and palpation I found Nadine to have moderate to high muscle tension in her scalenes, trapezius, rhomboids, and sub occipitals with minimal restrictions in cervical ROM. Her thoracic and lumbar paraspinals were tender with muscle knots. Her hips and lumbar region were also tight with tender points. The first treatment consisted of a one hour massage to her full body with myofascial release, muscle stripping and compression techniques. ASSESSMENT: I feel that Nadine is a good candidate for massotherapy at this time. She had a favorable response to the first treatment with reduction in her muscle aches, pain and tension. She also had improvement in her cervical and lumbar range of motion with improved flexibility in her neck and back. PLAN: The plan of care was reviewed with the patient. The patient is to be seen on as needed basis for a total of ten sessions with the recommendation of once every four weeks for a one hour treatment.
--- NOTE | 2017-05-18 12:52 | MASS.EVAL_ITS ---
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 She was referred to the [facility] facility for a massotherapy evaluation by Dr. Chaka Herbert with the diagnosis of back and neck pain. Nadine presents today with the symptoms of tension and pain in her neck, upper back and lower back. She reports having a medical history of exzema, melanoma and TMJ dysfunction. She reports having minimal limitations during his daily activities currently. OBJECTIVE: Upon observation Nadine has poor posture with her head forward and shoulders forward from the neutral position in sitting and standing. After examination and palpation I found Nadine to have moderate to high muscle tension in her scalenes, trapezius, rhomboids, and sub occipitals with minimal restrictions in cervical ROM. Her thoracic and lumbar paraspinals were tender with muscle knots. Her hips and lumbar region were also tight with tender points. The first treatment consisted of a one hour massage to her full body with myofascial release, muscle stripping and compression techniques. ASSESSMENT: I feel that Nadine is a good candidate for massotherapy at this time. She had a favorable response to the first treatment with reduction in her muscle aches, pain and tension. She also had improvement in her cervical and lumbar range of motion with improved flexibility in her neck and back. PLAN: The plan of care was reviewed with the patient. The patient is to be seen on as needed basis for a total of ten sessions with the recommendation of once every four weeks for a one hour treatment.
--- NOTE | 2018-04-30 10:58 | MASS.DISCH ---
Massage Therapy Discharge Summary: Discharge Date: 04/30/2018 Nadine was seen for a massotherapy evaluation on 05/18/2017 with the diagnosis of back pain. She was treated with ten sessions of massage therapy consisting of deep pressure soft tissue techniques, myofascial release and trigger point compression to her cervical, thoracic, lower back, upper extremities and hips. Nadine responded well to the therapy by reporting decreased tension and pain throughout her head, neck, shoulders, lower back and hips. Her goals for therapy were met throughout the treatment sessions. At this time this patient is being discharged from our care at [facility] facility.
== END 2018-04-28 19:00 | disposition home or self-care (01) ==
LOC: MASS 11:00
PROVIDERS: Family Provider Family Medicine; PCP Family Medicine; Visit Provider Family Medicine
DX: M54.2 Cervicalgia (principal)
CPT/HCPCS: 97124

== ENCOUNTER → 2018-05-17 13:34 | Outpatient (CLI) | payer OTHER, SELFPAY ==
--- NOTE | 2018-05-17 13:37 | BI_ITS ---
MAMMOGRAPHY - BILATERAL SCREENING REASON FOR EXAM: Female, 53 years old. Routine annual screening examination. PERTINENT HISTORY: Non-contributory. TECHNIQUE: Digital bilateral breast katie (3D mammographic acquisition) in the CC and MLO projections. 2-D mediolateral oblique (MLO) and craniocaudad (CC) views of both breasts were obtained. CAD: Full Field Digital Mammography with Computer Added Detection was performed. COMPARISON: Comparison is made with prior study dated May 11, 2017 and April 22, 2016. FINDINGS: Breast Composition: The breasts are heterogeneously dense, which may obscure small masses. There are no dominant masses or suspicious calcifications. No other significant abnormalities are identified. There has been no significant change since the prior study. BI/SCREENING MAMM (CAD), BILAT IMPRESSION: Stable bilateral screening mammogram. Yearly follow-up mammogram recommended. (A) ASSESSMENT CATEGORY: BIRADS Category 2: Benign. A letter regarding these results will be sent to the patient by the facility within 30 days. Approximately 10% of breast cancers are not detected by mammography. A normal mammogram should not delay biopsy of a clinically suspicious abnormality. [id number] Electronically Signed: Trevon Soni MD at 14:50 EST Tel [phone], Service support ,
--- OUTSIDE RECORDS SUMMARY | 2018-07-22 08:06 | XMS RPT_ITS ---
:1965 Author Organization [place] Support Name Relationship Address Phone AP ALFRED Unavailable [address] + [address] Unavailable [address] + [place] [address] [facility] Unavailable [address] + [place] [address] TIMAAP ARAUZ Unavailable [address] + [place], [place] [address] [place] [address] [facility] Unavailable [address] + [place] [address] [facility] Unavailable [address] + [place] [address] TIMA AP Unavailable [address] + [place], [place] [address] [place] [address] + [place] [address] [facility] Unavailable [address] + [place] [address] AP ALFRED Unavailable [address] + [address] Unavailable [address] + [place] [address] [facility] Unavailable [address] + [place] [address] AP ALFRED Unavailable [address] + [address] [facility] Unavailable [address] + [place] [address] [facility] Unavailable [address] + [place] [address] AP ALFRED Unavailable [address] + [place] [address] [place] [facility] Unavailable [address] + [place] [address] [facility] Unavailable [address] + [place] [address] AP ALFRED Unavailable [address] + [place] [address] [facility] [facility] Unavailable [address] + [place] [address] [facility] Unavailable [address] + [place] [address] AP ALFRED Unavailable [address] + [place], [place] [address] [place] [address] [facility] Unavailable [address] + [place] [address] [facility] Unavailable [address] + [place] [address] AP ALFRED Unavailable [address] + [place], [place] [address] [place] [address] [facility] Unavailable [address] + [place] [address] [facility] Unavailable [address] + [place] [address] AP ALFRED Unavailable [address] + [place], [place] [address] [place] [address] [facility] Unavailable [address] + [place] [address] [facility] Unavailable [address] + [place] [address] AP ALFRED Unavailable [address] + [place], [place] [phone] [place] [address] [facility] Unavailable [address] + [place] [address] [facility] Unavailable [address] + [place] [address] AP ALFRED Unavailable [address] + [place], [place] [phone] [place] [address] [facility] Unavailable [address] + [place] [address] [facility] Unavailable [address] + [place] [address] AP ALFRED Unavailable [address] + [place] [address] [facility] [address] + [place] [address] [facility] Unavailable [address] + [place] [address] AP ALFRED Unavailable [address] + [place], [place] [id number] [place], [place] [address] Unavailable [address] + [place] [address] [facility] Unavailable [address] + [place] [address] AP ALFRED Unavailable [address] + [place], [place] [address] [place], [place] [address] Unavailable [address] + [place] [address] [facility] Unavailable [address] + [place] [address] Care Team Providers Name Role Phone Mirtha Connor Attending Unavailable Keon, Chaka Referring Unavailable Mirtha Call Attending Unavailable Mirtha Call Referring Unavailable Keon, Chaka Primary Care Unavailable DOCTOR, OUT OF TOWN Attending Unavailable Jeremiah Thompson Primary Care Unavailable Chaka Hebrert Attending Unavailable Keon, Chaka Primary Care Unavailable [...] Chaka Attending Unavailable Keon, Chaka Referring Unavailable Keon, Chaka Primary Care Unavailable Mirtha Call Attending Unavailable Mirtha Call Referring Unavailable Chaka Herbert Primary Care Unavailable PROBLEMS PROBLEMS DATE TYPE CONDITION / CODE ATTENDING STATUS SOURCE 05/04/2018 Unknown 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, 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, right thumb / Mirtha [facility] M65.311(ICD-10) Hospital Repository 04/30/2018 Unknown M54.2 - Cervicalgia / Keon Chaka Active Melissa M54.2(ICD-10) [facility] Hospital Repository 04/10/2018 Unknown N63.20 - Unspecified Mirtha Call Active Melissa lump in the left Community breast, unspecified Hospital quadrant / Repository N63.20(ICD-10) 11/16/2017 Unknown Z12.4 - Encounter for Mirtha Call Active Elizabeth screening for Community malignant neoplasm of Hospital cervix / Z12.4(ICD-10) Repository 11/17/2017 Unknown Z86.010 - Personal CebuMarkus nieves Active Melissa history of colonic Community polyps / Hospital Z86.010(ICD-10) Repository 11/17/2017 Unknown Z80.0 - Family history Markus Turner Active Elizabeth of malignant neoplasm Community of digestive organs / Hospital Z80.0(ICD-10) Repository 08/26/2017 Unknown N63.0 - Unspecified Mirtha Call Active Melissa lump in unspecified Community breast / N63.0(ICD-10) Hospital Repository 11/27/2017 Unknown M26.609 - Unspecified Chaka Herbert Active Melissa temporomandibular [facility] joint disorder, Hospital unspecified side / Repository M26.609(ICD-10) PROCEDURES PROCEDURES No Procedure Records FoundRESULTS RESULTS SCREENING MAMM (CAD), Observed: 05/17/2018 Status: F Source: [place] BILAT 1:37 PM [facility] REPOSITORY [facility] Imaging Services [address] [place] [address] SCREENING MAMM (CAD), BILAT MR#: [id number] Acct: [id number] Name: NADINE TOWNSEND Rep #: [id number] : 1965 F 53 From: Trevon Soni MD PCP: Chaka Herbert MD Status: REG CLI Study: SCREENING MAMM (CAD), BILAT Date of Exam: 05/17/18 Exam# [id number] Ordering Dr: Mirtha Call MD MAMMOGRAPHY - [...] delay biopsy of a clinically suspicious abnormality. [id number] Electronically Signed: Trevon Soni MD at 14:50 EST Tel [phone], Service support , CC: Mirtha Call MD; Chaka Herbert MD Cancer Registry Manager: Signed ORTHOPEDIC VISIT Observed: 05/04/2018 Status: F Source: [place]OM REPORT 11:16 AM [facility] REPOSITORY [facility] Orthopaedics AND Sports Medicine [address] [place] [address] OFFICE VISIT Date of Service: 05/04/18 MR#: [id number] Acct: [id number] Name: NADINE TOWNSEND Rep #: [id number] : 1965 Provider: Mirtha Connor DO Age/Sex: 53/F Location: [facility] [place] Status: Signed Intake Intake Visit Reasons: right [...] Route Admin Location Lot Number Expiration DateNDC Technical Training Manager 20 mg Tendon Sheath Iright trigger [id number] 06/30/19 [id number] [facility]. humb SQUIBB Assessment AND Plan [...] Orders Orders: Medications Discontinued: Kenalog (triamcinolone acetonide) Qrpnhgdr03 mg (0.5 mL) Tendon Sheath Inj. ONCE 0.5 mL nued Reason: Office Medication has been Docu 0RF NS mented as given Coding Level of Care Code Off vis,new,level 3 Diagnoses Trigger thumb, right thumb M65.311 Additional Codes testing engineer.trig (12230) 05/04/18 1116 <Electronically signed by Mirtha Connor DO> Date Mirtha Connor DO Cosigner Signature: Date (if applicable) CC: DISCHARGE SUMMARY Observed: 04/30/2018 Status: F Source: FLOM 11:02 AM [facility] REPOSITORY [facility] Medical Records Department [address] [place] [address] Discharge Summary 04/30/18 1058 MR#: [id number] Acct: [id number] Name: NADINE TOWNSEND Rep #: [id number] : 1965 53 From: Katie Hickman PCP: [...] is being discharged from our care at [facility] facility. 04/30/18 1102 <Electronically signed by Katie Hickman > Date Katie Hickman Cosigner Signature (if applicable): Date CC: Katie Hickman; Chaka Herbert MD Signed BREAST LIMITED Observed: 04/10/2018 Status: F Source: FLOM UNILATERAL 9:38 AM [facility] REPOSITORY [facility] Imaging Services [address] [place] [address] Breast Limited Unilateral MR#: [id number] Acct: [id number] Name: NADINE TOWNSEND Mirta Rep #: [id number] : 1965 F 53 From: Trevon Soni MD PCP: Chaka Herbert MD Status: REG CLI Study: Breast Limited Unilateral Date of Exam: 04/10/18 Exam# [id number] Ordering Dr: Mirtha Call MD STUDY: ULTRASOUND [...] the facility within 30 days. Electronically Signed: Trevon Soni MD at 11:09 EST Tel [phone], Service support , CC: Mirtha Call MD; Chaka Herbert MD Cancer Registry Manager: Signed BRAIN W/WO CONTRAST Observed: 12/01/2017 Status: F Source: [place] 6:36 AM [facility] REPOSITORY [facility] Imaging Services [address] [place] [address] Brain W/WO Contrast MR#: [id number] Acct: [id number] Name: NADINE TOWNSEND Rep #: [id number] : 1965 F 52 From: Bartolo Arzola MD PCP: Chaka Herbert MD Status: REG CLI Study: Brain W/WO Contrast Date of Exam: 12/01/17 Exam# [id number] Ordering Dr: Chaka Herbert MD STUDY: MRI [...] Service support , CC: Chaka Herbert MD Cancer Registry Manager: Signed PAP I-G W/RFX HRHPV Collected: 11/16/2017 Status: F Source: [place] 10:20 AM [facility] REPOSITORY Order Comment: CYTOLOGY INFORMATION: - CLINICAL INFORMATION: - DATE LMP/MENOPAUSE: MENOPAUSE - COLLECTION VIAL: Thin Prep Vial - VOCATIONAL TRAINER SOURCE: CERVICAL/ENDOCERVICAL - COLLECTION TECHNIQUE: BRUSH/SPATULA Specimen Comment: [id number] Specimen Comment: No. of containers..01 ThinPrep Vial [...] Normal PERFORM Comment Result Comment: Azucena Neumann, Tandem Mill Sticker (ASCP) LAB L7400.4365 . Normal TEST METHOD Comment Result Comment: [...] was performed. Performed at: [facility] Lab[address] [id number] Metalizer: Letty Thompson MD, Phone: [phone] Performed By: #### L7400.0350 #### [facility] (refer to report for specific site) refer to report for address and phone number NICOTINE URINE DRUG Collected: 10/26/2017 Status: F Source: [place] SCREEN 7:40 AM [facility] REPOSITORY TYPE CODE TESTS RESULT OUT OF [...] of Nicotine. Performed By: #### L505.6240 #### [facility] [address] [place], [address] CBC, EMPLOYEE Collected: 10/26/2017 Status: F Source: FLOM 7:40 AM [facility] REPOSITORY TYPE CODE TESTS RESULT OUT OF [...] Lymph 2.22 Performed By: #### L100.0200 #### [facility] [address] [place], [place], [address] URINALYSIS, EMPLOYEE Collected: 10/26/2017 Status: F Source: FLOM 7:40 AM [facility] REPOSITORY TYPE CODE TESTS RESULT OUT OF [...] ESTERASE Negative Performed By: #### L400.0100 #### [facility] [address] [place], [address] EMPLOYEE PROFILE Collected: 10/26/2017 Status: F Source: FLOM 7:40 AM [facility] REPOSITORY TYPE CODE TESTS RESULT OUT OF [...] LDH 172 Performed By: #### L500.2900 #### [facility] [address] [place], [address] DOWNTIME REPORT Observed: 10/18/2017 Status: F Source: FLOM 1:14 PM [facility] REPOSITORY [facility] Medical Records Department [address] [place] [address] Downtime Report MR#: [id number] Acct: [id number] Name: NADINE TOWNSEND Rep #: [id number] : 1965 52 From: Jose Rafael Pires MD PCP: Chaka Herbert MD Status: DEP [facility] This patient was seen during an EMR downtime October 02, 2017 - October 09, 2017. This patient may have a combination of paper and electronic documentation or all paper documentation. All documentation is viewable within the e-chart portion of [facility] for each patient visit. KNEE 4 OR MORE Observed: 09/27/2017 Status: F Source: [place] VIEWS 9:30 AM [facility] REPOSITORY [facility] Imaging Services [address] [place] [address] Knee 4 or More Views MR#: [id number] Acct: [id number] Name: NADINE TOWNSEND Rep #: [id number] : 1965 F 52 From: John High PCP: Chaka Herbert Status: REG CLI Study: Knee 4 or More Views Date of Exam: 09/27/17 Exam# [id number] Ordering Dr: Chaka Herbert MD STUDY: X-RAY [...] , Service support , CC: Chaka Herbert Cancer Registry Manager: Signed BREAST LIMITED Observed: 08/26/2017 Status: F Source: [place] UNILATERAL 11:03 AM [facility] REPOSITORY [facility] Imaging Services [address] [place] [address] Breast Limited Unilateral MR#: [id number] Acct: [id number] Name: NADINE TOWNSEDN Rep #: [id number] : 1965 F 52 From: Chintan South MD PCP: Chaak Herbert Status: REG CLI Study: Breast Limited Unilateral Date of Exam: 08/26/17 Exam# [id number] Ordering Dr: Mirtha Call MD STUDY: ULTRASOUND [...] , CC: Mirtha Call MD; Chaka Herbert Cancer Registry Manager: Signed CHEST PA AND LATERAL Observed: 06/01/2017 Status: F Source: [place] 9:[address] [facility] Imaging Services [address] [place] [address] Chest PA and Lateral MR#: [id number] Acct: [id number] Name: NADINE TOWNSEND Rep #: [id number] : 1965 F 52 From: Trevon Soni MD PCP: Chaka Herbert Status: REG CLI Study: Chest PA and Lateral Date of Exam: 06/01/17 Exam# [id number] Ordering Dr: Chaka Herbert MD STUDY: X-RAY [...] Trevon Soni MD at 9:55 EST Tel [phone], Service support , CC: Chaka Herbert Cancer Registry Manager: Signed ALLERGIES ALLERGIES DATE TYPE / CODE NAME / CODE REACTION SEVERITY SOURCE 09/09/2014 Drug Penicillins/ HIVES ?? [facility] Allergy/4160 [id number](R Hospital 08196(SNOMED XNORM) Repository CT) 09/09/2014 Drug latex/U20278 Rash [facility] Allergy/4160 8921(RXNORM) Hospital 41111(SNOMED Repository CT) ENCOUNTERS ENCOUNTERS ADMIT/DISCHARGE ACCOUNT ADMITTING ENCOUNTER LOCATION SOURCE NUMBER CLASS 05/17/2018 [id number] Ambulatory [place] Elizabeth 2 [facility] ing:OPBI Repository 05/04/2018/ [id number] Ambulatory BMSBuilding:B Melissa 9 5 [facility] Repository 04/28/2018/ [id number] Ambulatory Elizabeth Elizabeth 8 3 [facility] ing:MASS Repository 04/10/2018 [id number] Ambulatory Melissa Melissa 2 [facility] ing:OPUS Repository 12/01/2017 [id number] Ambulatory Elizabeth Elizabeth 2 [facility] ing:MRI Repository 11/16/2017 [id number] Ambulatory Elizabeth Melissa 9 [facility] ing:LABSPEC Repository 10/30/2017 [id number] Ambulatory [place] Elizabeth 0 [facility] ing:MASS Repository 10/26/2017 [id number] Ambulatory [place] Elizabeth 6 [facility] ing:EMPH Repository 10/06/2017/ [id number] Ambulatory Elizabeth Elizabeth 8 1 [facility] ing:EN Repository 10/06/2017 [id number] Ambulatory BMSBuilding:B Elizabeth 1 MS.[facility] Repository 09/27/2017 [id number] Ambulatory [place] Elizabeth 0 [facility] ing:MTRAD Repository 09/07/2017/ [id number] Ambulatory BMSBuilding:B Melissa 8 3 [facility] Repository 08/26/2017 [id number] Ambulatory [place] Melissa 8 [facility] ing:US Repository 06/07/2017/ [id number] Ambulatory Elizabeth Melissa 8 3 [facility] ing:PT Repository 06/01/2017 [id number] Ambulatory [place] Elizabeth 2 [facility] ing:HPRAD Repository PAYERS PAYERS ENCOUNTER GUARANTOR PAYER SUBSCRIBER SOURCE 05/17/2018 [place] Primary Insurance:[facility] NADINE Nieves Elizabeth [id number] [facility] 8915[place] Number: Repository [address]Keo: (565) [id number] [phone] () Date:9947-52-93AE [facility] [address]Y[place]QXSIHEL, [place] [address]BJ: CHECK WEBSITE 05/17/2018 Secondary NOT GIVENUNK Melissa Insurance:SELF PAY [facility] Number: Effective Repository Date:2017-11-17 05/04/2018 [place] Weathers Primary Insurance:[facility] NADINE [id number] [facility] 9336[place]40-[place], [place] Number: Repository [address]Lmw: 330 [id number] [phone] (HP) Date:4575-48-64DG [address] [address]USRYMHDJ, [place] [address]ND: CHECK WEBSITE 05/04/2018 Secondary NOT GIVENUNK Elizabeth Insurance:SELF PAY [facility] Number: Effective Repository Date:2018-05-04 04/28/2018 [place] Weathers Primary Insurance:[facility] NAIDNE Torres [id number] [facility] 3646-94-49[place]SP[place], [place] Number: Repository [address]Leh: 330 [id number] [phone] (HP) Date:4062-22-96ZQ [address] [address]PHFUSXXWC, [place] [address]GO: CHECK WEBSITE 04/28/2018 Secondary NOT GIVENUNK Elizabeth Insurance:SELF PAY [facility] Number: Effective Repository Date:2017-04-11 04/10/2018 [place] Weathers Primary Insurance:[facility] NADINE Torres [id number] [facility] [address]: [facility] 8062-43-68[place]JF[place], [place] Number: Repository [address]Iiu: 330 [id number] [phone] (HP) Date:7768-34-39FR [address] [address]ABJFDYENK, [place] [address]CE: CHECK WEBSITE 04/10/2018 Secondary NOT GIVENUNK Elizabeth Insurance:SELF PAY [facility] Number: Effective Repository Date:2018-03-29 12/01/2017 [place] Primary Insurance:[facility] NADINE Torres [id number] [facility] [address]: [facility] 2575-80-84[place]RIEly, [place] Number: Repository [address]Jsu: 330 [id number] [phone] (HP) Date:3867-25-70SZ [address] [address]BXNFYOLKG, [place] [address]AI: CHECK WEBSITE 12/01/2017 Secondary NOT GIVENUNK Melissa Insurance:SELF PAY [facility] Number: Effective Repository Date:2017-11-17 11/16/2017 [place] Primary Insurance:[facility] NADINE Nieves Melissa [id number] [facility]: [facility] 0001-08-71LSZEly, [place] Number: Repository [address]Yiu: 330 [id number] [phone] () Date:5438-58-57YW [address] [address]BWMKMYAJP, [place] [address]OC: CHECK WEBSITE 11/16/2017 Secondary NOT GIVENUNK Melissa Insurance:SELF PAY [facility] Number: Effective Repository Date:2017-11-16 10/30/2017 [place] Weathers Primary NOT GIVENUNK Elizabeth [id number] Insurance:SELF PAY [place] Number: Effective Repository [phone]: (330) Date:2015-06-30 [phone] () 10/26/2017 [place] Primary NOT GIVENUNK Melissa [id number] Insurance:SELF PAY [facility] [place] Number: Effective Repository [address]Blt: (330) Date:2017-10-26 [phone] () 10/06/2017 [place] Primary Insurance:[facility] NADINE Nieves Melissa [id number] [facility]: [facility] 4476-05-15[facility] [place] Number: Repository [address]Elg: [id number] [phone] Date:9420-16-35KF [address] (HP) [address]DVMWXVQXV, [place] [address]VK: CHECK WEBSITE 10/06/2017 Secondary NOT GIVENUNK Elizabeth Insurance:SELF PAY [facility] Number: Effective Repository Date:2017-09-07 10/06/2017 [place] Primary Insurance:[facility] NADINE Nieves Elizabeth [id number] [facility]: [facility] 2540-92-21[facility] [place] Number: Repository [address]Lwy: 330 [id number] [phone] () Date:0622-83-02XS [address] [address]XYZWTKJEJ, [place] [address]XE: CHECK WEBSITE 10/06/2017 Secondary NOT GIVENUNK Elizabeth Insurance:SELF PAY [facility] Number: Effective Repository Date:2017-10-06 09/27/2017 [place] Weathesr Primary Insurance:[facility] NADINE Nieves Melissa [id number] [facility]: [facility] 6637-66-25VNZEly, [place] Number: Repository [address]Tfq: [id number] [phone] Date:2596-41-34WA [address] () [address]463PSVCDVYXB, [place] [address]IC: CHECK WEBSITE 09/27/2017 Secondary NOT GIVENUNK Elizabeth Insurance:SELF PAY [facility] Number: Effective Repository Date:2017-09-27 09/07/2017 [place] Primary Insurance:[facility] NADINE Nieves Elizabeth [id number] [facility]: [facility] 1601-15-31YLJEly, [place] Number: Repository [address]Zqr: [id number] [phone] Date:5965-83-70UR [address] () [address]SDDDYDKPF, [place] [address]JD: CHECK WEBSITE 09/07/2017 Secondary NOT GIVENUNK Melissa Insurance:SELF PAY [facility] Number: Effective Repository Date:2017-09-07 08/26/2017 [place] Primary Insurance:[facility] NADINE Moraoster [id number] [facility]: [facility] 9448-35-87BMYEly, [place] Number: Repository [address]Kyh: [id number] [phone] Date:6588-40-71IJ [address] () [address]FKKHMKSHZ, [place] [address]IX: CHECK WEBSITE 08/26/2017 Secondary NOT GIVENUNK Elizabeth Insurance:SELF PAY [facility] Number: Effective Repository Date:2017-07-26 06/07/2017 [place] Primary Insurance:[facility] NADINE SWEETWATERDOB: Elizabeth [id number] [facility] 9971-02-97IVRRox[place], [place] Number: Repository [address]Ebh: [id number] [phone] Date:7326-43-04NO [address] () [address]SCEWPPVMU, [place] [address]GI: CHECK WEBSITE 06/07/2017 Secondary NOT GIVENUNK Elizabeth Insurance:SELF PAY [facility] Number: Effective Repository Date:2017-05-17 06/01/2017 [place]s Primary Insurance:[facility] NADINE SANB: Elizabeth [id number] [facility] 2535-22-04FOBRoxbury, [place] Number: Repository [address]Hmy: [id number] [phone] Date:9556-92-69YP [address] () [address]408IDNCSDMFD, [place] [address]UF: CHECK WEBSITE 06/01/2017 Secondary NOT GIVENUNK Elizabeth Insurance:SELF PAY [facility] Number: Effective Repository Date:2017-06-01
== END ==
PROVIDERS: Family Provider Family Medicine; PCP Family Medicine; Referring Provider Obstetrics & Gynecology; Visit Provider Obstetrics & Gynecology
DX: Z12.31 Encounter for screening mammogram for malignant neoplasm of breast (principal)
CPT/HCPCS: 77063; 77067

== ENCOUNTER → 2018-11-29 12:12 | Outpatient (CLI) | payer OTHER, SELFPAY ==
[2018-10-11 09:59] VITALS: BMI 21.4
== END ==
PROVIDERS: Family Provider Family Medicine; PCP Family Medicine; Referring Provider Orthopaedic Surgery; Visit Provider Orthopaedic Surgery
DX: M54.5 Low back pain (principal); M25.551 Pain in right hip
CPT/HCPCS: 72110; 73502

== ENCOUNTER → 2018-12-08 07:03 | Outpatient (CLI) | payer OTHER, SELFPAY ==
[2018-10-11 09:59] VITALS: BMI 21.4
--- NOTE | 2018-12-08 07:16 | CT_ITS ---
STUDY: CT MAXILLOFACIAL SINUSES REASON FOR EXAM: Female, 53 years old. Left maxillary sinusitis RADIATION DOSAGE (If Supplied By Facility): CTDIvol = ( 33.06 ) mGy, DLP = ( 858.64 ) mGycm TECHNIQUE: The patient was scanned in a multi detector CT scanner. High resolution axial imaging was performed without the administration of intravenous contrast material. Sagittal and coronal images were reconstructed. Individualized dose optimization techniques were used for this CT. COMPARISON: None. FINDINGS: FRONTAL SINUSES: Left frontal mucosal thickening. ETHMOIDAL SINUSES: Diffuse mucosal thickening bilaterally, left slightly more than right. MAXILLARY SINUSES: Bilateral mucosal thickening, left significantly more than right with near complete opacification. SPHENOIDAL SINUSES: Mild mucus accumulation within the left sphenoid sinus cavity. Mucosal thickening involving both ostiomeatal complexes compromising the openings. Probable previous resection of the left ostiomeatal complex. Normal bilateral middle turbinates. Normal bilateral inferior turbinates. Slightly left deviated nasal septum. There is patency of the bilateral nasal airways. The visualized osseous structures are normal. The visualized bilateral orbital contents are normal. CT/Sinus/Facial Bone IMPRESSION: Pansinusitis. Electronically Signed: Sd Johnson DO at 15:32 EDT Tel [phone], Service support ,
== END ==
PROVIDERS: Family Provider Family Medicine; PCP Family Medicine; Referring Provider Otolaryngology; Visit Provider Otolaryngology
DX: J32.0 Chronic maxillary sinusitis (principal); J33.9 Nasal polyp, unspecified
CPT/HCPCS: 70486

== ENCOUNTER 2019-02-04 08:03 | Day surgery (SDC) | payer OTHER, SELFPAY ==
[2018-10-11 09:59] VITALS: BMI 21.4
[2019-01-15 09:34] VITALS: BMI 21.4
--- NOTE | 2019-01-22 09:24 | EKG12_ITS ---
Test Reason : PRE OP Blood Pressure : / mmHG Vent. Rate : 070 BPM Atrial Rate : 070 BPM P-R Int : 142 ms QRS Dur : 074 ms QT Int : 408 ms P-R-T Axes : 081 072 060 degrees QTc Int : 440 ms Sinus rhythm with Premature supraventricular complexes ST abnormality, possible digitalis effect Abnormal ECG Confirmed by CRISTY CARPENTER, KEITH ([id number]), electronic news gathering editor JULIO CORTES ([id number]) on 01/23/2019 10:54:56 AM Referred By: Bennie Joshi Confirmed By:KEITH MUNIZ MD
[2019-01-22 09:35] LABS: Hematocrit 41.5 % (37-47); Hemoglobin 14.3 g/dL (12.0-15.0); Mean Corp Hgb Conc 34.5 g/dL (32-36); Mean Corpuscular Volume 98.8 fL (81-99); Mean Platelet Vol. 9.4 fl (6.2-12.0); Platelet Count 400 K/mm3 (150-450); RBC Distribution Width CV 11.8 % (11.6-14.6); White Blood Count 8.2 K/mm3 (4.4-11.0)
[2019-01-22 10:01] LABS: Anion Gap 7 (5-15); BUN 13 mg/dL (7-18); BUN/Creat Ratio 18.5 RATIO (10-20); Calcium,Total 8.9 mg/dL (8.5-10.1); Chloride 109 mmol/L (98-107); EST Glomerular Filtration Rate 92 mL/min (>60); Est Glom Filt Rate - Afr Amer 111 mL/min (>60); Glucose 109 mg/dL (74-106); Potassium 4.2 mmol/L (3.5-5.1); Sodium Level 143 mmol/L (136-145)
[2019-02-04 08:36] VITALS: BP 133/99; PULSE 88; RESP 16; TEMP 36.5; O2SAT 100; BMI 22.0
[2019-02-04] MEDS: Lactated Ringers 1,000 ML 100 ML IV (08:44)
--- NOTE | 2019-02-04 09:14 | DCINST_ITS ---
You will use the following diet at home:: Regular Discharge Activity: - - No noseblowing Additional Activity Instructions:: Start irrigation 4x/day on 02/05/19. Allergies/Adverse Reactions: Allergies latex Allergy (Intermediate, Verified 01/29/19 13:56) Rash Penicillins Allergy (Intermediate, Verified 01/29/19 13:56) HIVES ?? Medications to take at Discharge Ibuprofen [Motrin] 500 mg PO TID PRN PRN 01/29/19 Doxycycline Hyclate 1 tab PO BID 02/04/19 Primary Care Physician: Chaka Herbert MD [Primary Care Provider] - Test Results: Test results from this visit will be discussed in further detail at your follow- up appointment, if applicable.
--- NOTE | 2019-02-04 09:35 | ETH_PTH ---
PATIENT: BLANCA TOWNSEND [place] [facility] [place][id number] AGE/SX: 54/F ROOM: RE02/04/[address]: Dr. Bennie Joshi MD : 1965 BED: DIS: 02/04/2019 SPEC #: [id number] RECD: 02/04/19 14:50 STATUS: TIBURCIO DOMENICO #: [id number] JIMENA: 02/04/19 09:[address]: Bennie Joshi DEPT: SURGICAL PATHOLOGY RECD BY: Domonique Sevilla ENTERED: 02/04/19 15:17 SP TYPE: ETH TISS OTHR DR: Dr. Chaka Herbert MD Tissues: Ethmoid sinus, NOS Procedures: Decalcification bone/plaque Surgery Specimen Level III HEADER OPERATION: Endoscopic total intranasal ethmoidectomy, maxillary antrotomy PRE-OP DIAGNOSIS: Polyp nasal cavity, chronic sinusitis TISSUE SUBMITTED: Contents of left maxillary and ethmoid sinus MICROSCOPIC DIAGNOSIS Left maxillary and ethmoid sinus contents, excision: Consistent with chronic sinusitis. Fragments of bone with no significant pathologic change. AM:shanelle 02/07/19 MICROSCOPIC DESCRIPTION Slides are reviewed. GROSS DESCRIPTION Received in fixative is one container labeled with the patient's name and designated contents of left maxillary and ethmoid sinus. The specimen consists of multiple fragments of pink hemorrhagic mucoid tissue mixed with fragments of bone that in aggregate measure 5 x 3 x 0.6 cm. The entire specimen is submitted in four cassettes after decalcification. / ALECIA:shanelle 02/04/19 TC:3 CPT: 42909, 16945
[2019-02-04] MEDS: Oxymetazoline 0.05% 1 SPRAY SPRAY.BTL 2 SPRAY NASAL (09:49)
[2019-02-04] MEDS: Oxymetazoline 0.05% 1 SPRAY SPRAY.BTL 15 SPRAY (09:49)
[2019-02-04 10:30] VITALS: BP 133/99; BP 134/97; PULSE 79; RESP 18; TEMP 36.2; O2SAT 97
--- NOTE | 2019-02-04 10:31 | PCM.OPRPT ---
Report of Operation Date of Procedure: 02/04/19 Pre-Operative Diagnosis: left chronic sinusitis Post-Operative Diagnosis: same and septal spur/deviated septum Surgery/Procedure Performed:: Left total ethmoidectomy. left maxillary antrostomy with tissue removal. septoplasty. Use of navigation Description of Surgical Findings:: pus in left maxillary sinus, large left septal spur encroaching the meatus Type of Anesthesia:: General Anesthesiologist: Yonis Webb Specimen's removed: sinus contents Estimated Blood Loss (mL): minimal Description of Procedure: The patient was taken to the OR on 02/04/19. She was placed in the supine position on the OR table. She was given sufficient general endotracheal anesthesia. The head of bed was elevated 30 degrees. The navigation unit was placed and verified per protocol. She was draped steriley. Zero, 30 and 70 degree rigid nasal endoscopes were used throughout the entire case. I injected 1% lidocaine with epinephrine into the left middle turbinate, septum, polyp and uncinate process. The left middle turbinate was medialized with a freer elevator. The large polyp was removed with a microdebrider. The maxillary sinus was entered with a ball tipped sinus seeker and there was immediate extrusion of pus. A back biter was used to create the antrostomy. The uncinate was taken down with a microdebrider. Polypoid tissue was removed from the maxillary sinus with a microdebrider with an angled tip. The left maxillary sinus was then irrigated with saline and the irrigant was suctioned from the nasopharynx. Next, the ethmoid bulla was opened with curette. The navigation was used throughout the ethmoidectomy. Total ethmoidectomy was completed with a curette, microdebrider and Blakesly-Dl forceps. The large left septal spur was encroaching into the left maxillary antrostomy. I decided to remove this. I made an incision on the septal mucosa with a sickle knife. The mucosa and mucoperichondrium were elevated off of the spur with a freer elevator. I then used malcom cut forceps to remove the septal spur. The mucosa was then re draped. Hemostasis was achieved with Afrin pledgets and then Anam powder. The procedure was terminated. She was awoken and brought to the recovery room in stable condition. Blood loss minimal, replacement none. Sponge, needle and instrument count were correct at the end of the procedure.
[2019-02-04 10:45] VITALS: BP 130/96; BP 133/99; PULSE 83; RESP 18; O2SAT 99
[2019-02-04 10:57] VITALS: BP 130/96; BP 133/99; PULSE 77; RESP 18; TEMP 36.7; O2SAT 98
[2019-02-04 11:19] VITALS: BP 133/99
== END 2019-02-04 11:20 | disposition home or self-care (01) ==
LOC: SDC 08:04 → AC 08:05
PROVIDERS: Family Provider Family Medicine; PCP Family Medicine; Referring Provider Otolaryngology; Visit Provider Otolaryngology
PROC: (CPT 30520; principal; 2019-02-04 09:05)
DX: J32.9 Chronic sinusitis, unspecified (principal); J34.2 Deviated nasal septum; J33.0 Polyp of nasal cavity; Z78.0 Asymptomatic menopausal state; Z85.820 Personal history of malignant melanoma of skin; Z87.442 Personal history of urinary calculi; Z79.899 Other long term (current) drug therapy
CPT/HCPCS: 30520; 31255; 31267; 36415; 80048; 85027; 88304; 88305; 88311; 93005; J7120; J2405

== ENCOUNTER → 2019-03-01 13:56 | Outpatient (CLI) | payer OTHER, SELFPAY ==
[2019-02-04 08:36] VITALS: BMI 22.0
[2019-03-06 16:07] LABS: Age Gdln ACOG Testing 30-65 (.)
[2019-03-06 17:39] LABS: HPV APTIMA, High Risk Negative (Negative); HPV Reflexed? YES, CHARGE PATIENT
== END ==
PROVIDERS: Visit Provider Obstetrics & Gynecology
DX: Z12.4 Encounter for screening for malignant neoplasm of cervix (principal)
CPT/HCPCS: 87624; 88175; G0145

== ENCOUNTER 2019-03-29 09:15 | Outpatient (RCR) | payer OTHER, SELFPAY ==
--- NOTE | 2018-05-28 12:11 | MASS.EVAL ---
Massage Therapy Evaluation: Initial Evaluation Date: 05/28/2018 /Age: 09 1965, 53 Diagnosis: Tension Headaches Neck Pain Medications: None Goals: Decrease muscle tension Decrease headaches Stress relief Plan: To be seen one time per month or PRN for a total of 10 visits
--- NOTE | 2019-04-17 09:25 | MASS.DISCH ---
Massage Therapy Discharge Summary: Initial Evaluation Date: 05/28/2018 Diagnosis: Tension headache and neck pain No. of Visits: Date of last visit: 03/29/2019 Goals: Decreased muscle tension, decreased headaches and decreased stress throughout treatment. This patient is being discharged from our care at the [facility]. Thank you, Viky Sprague LMT
== END 2019-03-29 19:00 | disposition home or self-care (01) ==
LOC: MASS 09:15
PROVIDERS: Family Provider Family Medicine; PCP Family Medicine; Referring Provider Family Medicine; Visit Provider Family Medicine
DX: G44.209 Tension-type headache, unspecified, not intractable (principal); M54.2 Cervicalgia
CPT/HCPCS: 97124

== ENCOUNTER → 2019-07-02 09:24 | Outpatient (CLI) | payer OTHER, SELFPAY ==
--- NOTE | 2019-07-02 09:33 | BI_ITS ---
MAMMOGRAPHY - BILATERAL SCREENING REASON FOR EXAM: Female, 54 years old. Routine annual screening examination. PERTINENT HISTORY: Non-contributory. TECHNIQUE: Digital bilateral breast rambo (3D mammographic acquisition) in the CC and MLO projections. 2-D mediolateral oblique (MLO) and craniocaudad (CC) views of both breasts were obtained. CAD: Full Field Digital Mammography with Computer Added Detection was performed. COMPARISON: Comparison is made with prior examination dated May 17, 2018 and May 11, 2017. FINDINGS: Breast Composition: The breasts are heterogeneously dense, which may obscure small masses. There are no dominant masses or suspicious calcifications. Stable benign-appearing bilateral axillary lymph nodes. No other significant abnormalities are identified. There has been no significant change since the prior study. BI/SCREEN MAMM (CAD) W/RAMBO BILAT IMPRESSION: Stable bilateral screening mammogram. Yearly follow-up mammogram recommended. (A) ASSESSMENT CATEGORY: BIRADS Category 2: Benign. A letter regarding these results will be sent to the patient by the facility within 30 days. Approximately 10% of breast cancers are not detected by mammography. A normal mammogram should not delay biopsy of a clinically suspicious abnormality. [id number] Electronically Signed: Trevon Soni, at 10:18 EST , Service support ,
== END ==
PROVIDERS: PCP Obstetrics & Gynecology; Referring Provider Obstetrics & Gynecology; Visit Provider Obstetrics & Gynecology
DX: Z12.31 Encounter for screening mammogram for malignant neoplasm of breast (principal)
CPT/HCPCS: 77063; 77067

== ENCOUNTER 2019-07-31 07:30 | Outpatient (RCR) | payer OTHER, SELFPAY ==
--- NOTE | 2019-07-16 10:52 | HP.PTEVAL_ITS ---
Patient's Visit Information BLANCA TOWNSEND is a 54 year old F referred to Physical Therapy by Chaka Herbert MD with a diagnosis of R foot pain. 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 Pt reports she was issued orthotics she has worn for 10 years, and notes this has helped with her pain over this time span. Pt reports those orthotics have began to break down, and she needs a new pain for support. Pt currently reports she is not in pain, but notes she does occasionally experience pain with prolonged standing and walking. No tingling or numbness in LE's. No sleep diffic ulty secondary to pain. - Objective Neuro: B LE sensation is WNL to light touch. B patellar reflex= 2/3. ROM: B ankle DF ROM= 12 degrees. All other motions are WNL. MMT: B ankles are 5/5 throughout. Gait: Pt ambulates with early pronation during the stance phase of ambulation. - Goals Goal 1:: Pt will be properly fit for orthotics and educated on orthotic care after one followup visit Goal Time Frame: 1 Week - Rehabilitation Potential Physical Therapy Diagnosis: Pt has a Hx of B foot pain secondary to pes planus of B feet Rehabilitation Potential: Good - Anticipated Interventions Patient/Client Instruction: Educate patient on: Condition, Plan of Care For the Purpose of:: To improve self management Orthotics: Shoe insert For the Purpose of:: To decrease pain Thank you for the opportunity to evaluate your patient. For Medicare and Medicare HMO plans, please review the plan of care and approve it. It will need to be FAXED BACK to us at [phone] for Medicare purposes. For Medicare only, by signing this I certify the plan of care. Please let me know if there are questions or concerns regarding this plan of care. Physician Signature: Date:
--- NOTE | 2019-07-31 08:21 | HP.PTDCSUM ---
It has been my pleasure to treat BLANCA TOWNSEND referred by Chaka Herbert MD, with the diagnosis of R foot pain for a total of 2 visit(s). Discharge Date: Please see the following information for a summary of their discharge status. Subjective: No pain this date. Pt is ready for orthotics % Improvement: 0 Objective/Function: Pt is I with orthotic care and educated on skin breakdown. Goal 1:: Pt will be properly fit for orthotics and educated on orthotic care after one followup visit Goal Progress: Goal Met Plan: discharge If there are questions or concerns regarding this patient's physical therapy, please feel free to call me at [phone]. Thank you for the referral of this patient. Sincerely, Qasim Pearson, PT, ATC
== END 2019-07-31 19:00 | disposition home or self-care (01) ==
LOC: PT 07:30
PROVIDERS: PCP Obstetrics & Gynecology; Visit Provider Family Medicine
DX: M79.671 Pain in right foot (principal); M79.672 Pain in left foot
CPT/HCPCS: 97161; 97760; 97763

== ENCOUNTER 2020-03-04 07:00 | Outpatient (RCR) | payer OTHER, SELFPAY ==
--- NOTE | 2019-06-13 10:32 | MASS.EVAL ---
Massage Therapy Evaluation: INITIAL EVALUATION: DATE: 06/06/2019 PT NAME: BLANCA TOWNSEND :1965 V#: [id number] REF PHYS: DR. 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 SHE WAS REFERRED TO [facility] FOR A MASSOTHERAPY EVALUATION BY DR. MARSHALL WITH THE DIAGNOSIS OF BACK PAIN. SHE PRESENTS TODAY WITH PAIN IN NECK AND RIGHT HIP. THE SYMPTOMS COMMENCED DUE TO WORK AND STRESS. SHE RATES HER OVERALL HEALTH TO BE IN GREAT CONDITION WITH NO LIMITATIONS IN HER DAILY ACTIVITIES. BLANCA HAS NO MEDICATIONS LISTED AT THIS TIME. OBJECTIVE: THE FIRST TREATMENT CONSISTED OF A DEEP TISSUE UPPER BODY MASSAGE. I FOCUSED ON SUBOCCIPITALS, ANTERIOR AND POSTERIOR CERVICAL, UPPER TRAPEZIUM, LEVATOR, RHOMBOIDS, GLUTES, AND QL'S. TRIGGER POINT THERAPY AND A MYOFASCIAL RELEASE TO CERVICAL AND UPPER TRAPEZIUM WERE PERFORMED. ASSESSMENT: THE PATIENT MUSCLES WERE ROPEY ALONG THE SPINE IN THE INTERSCAPULAR AREA AND INTO RIGHT HIP. I FELT THERE WAS GOOD RELEASE OVERALL AND THE PATIENT RELAXED WITH WITH GOOD RELEASES UPON THE MUSCLE TISSUE. I FEEL THE PATIENT IS A GREAT CANDIDATE FOR MASSAGE THERAPY AT THIS TIME. PLAN: THE PLAN WAS REVIEWED WITH THE PATIENT AND THE PATIENT IS TO BE SEEN ON A REGULAR BASIS FOR A ONE HOUR SESSIONS OF MASSAGE THERAPY.
--- NOTE | 2020-04-27 18:37 | DS.PCM_ITS ---
Massage Therapy Discharge Summary: THE PATIENT WAS SEEN FOR MASSOTHERAPY EVALUATION ON 06/07/2019 WITH A DIAGNOSIS OF BACK PAIN. THE PATIENT WAS TREATED WITH 10 SESSIONS OF MASSAGE CONSISTING OF DEEP TISSUE UPPER BODY ONE HOUR MASSAGE. HER GOALS HAVE BEEN MET WITH 10 SESSIONS THRU OUT HER THERAPY. AT THIS TIME I AM DISCHARGING THE PATIENT FROM OUR CARE AT THE [facility]. Date: 04/27/20 V#: [id number] PT NAME: BLANCA TOWNSEND : 12/1964 REF PHYS:
== END 2020-03-04 19:00 | disposition home or self-care (01) ==
LOC: MASS 07:00
PROVIDERS: Visit Provider Family Medicine
DX: M54.16 Radiculopathy, lumbar region (principal); M25.551 Pain in right hip
CPT/HCPCS: 97124

== ENCOUNTER → 2020-05-25 | Outpatient (CLI) | payer OTHER, SELFPAY ==
[2020-05-28 13:17] LABS: HPV APTIMA, High Risk Negative (Negative)
[2020-05-28 21:38] LABS: HPV Reflexed? YES, CHARGE PATIENT
== END | disposition home or self-care (01) ==
LOC: LABSPEC 10:01
PROVIDERS: PCP Family Medicine; Visit Provider Student in an Organized Health Care Education/Training Program
DX: Z12.4 Encounter for screening for malignant neoplasm of cervix (principal)
CPT/HCPCS: 87624; 88175; G0145

== ENCOUNTER → 2020-07-15 08:33 | Outpatient (CLI) | payer OTHER, SELFPAY ==
--- NOTE | 2020-07-15 08:39 | BI_ITS ---
MAMMOGRAPHY - BILATERAL SCREENING REASON FOR EXAM: Female, 55 years old. Routine annual screening examination. PERTINENT HISTORY: Non-contributory. TECHNIQUE: Digital bilateral breast rambo (3D mammographic acquisition) in the CC and MLO projections. 2-D mediolateral oblique (MLO) and craniocaudad (CC) views of both breasts were obtained. CAD: Full Field Digital Mammography with Computer Added Detection was performed. COMPARISON: Comparison is made with prior study dated 07/02/2019 and 05/17/2018. FINDINGS: Breast Composition: The breasts are heterogeneously dense, which may obscure small masses. There are no dominant masses or suspicious calcifications. Stable benign-appearing bilateral axillary lymph nodes. No other significant abnormalities are identified. There has been no significant change since the prior study. BI/SCRN MAMM (CAD)W/RAMBO BILAT IMPRESSION: Stable bilateral screening mammogram. Yearly follow-up mammogram recommended. (A) ASSESSMENT CATEGORY: BIRADS Category 2: Benign. A letter regarding these results will be sent to the patient by the facility within 30 days. Approximately 10% of breast cancers are not detected by mammography. A normal mammogram should not delay biopsy of a clinically suspicious abnormality. [id number] Electronically Signed: Trevon Soni MD at 9:25 EDT , Service support ,
== END ==
PROVIDERS: PCP Family Medicine; Referring Provider Student in an Organized Health Care Education/Training Program; Visit Provider Student in an Organized Health Care Education/Training Program
DX: Z12.31 Encounter for screening mammogram for malignant neoplasm of breast (principal)
CPT/HCPCS: 77063; 77067

== ENCOUNTER → 2020-11-07 07:03 | Outpatient (CLI) | payer OTHER, SELFPAY ==
--- NOTE | 2020-11-07 07:04 | CT_ITS ---
STUDY: CT MAXILLOFACIAL SINUSES REASON FOR EXAM: Female, 55 years old. SINUSITIS AND NASAL POLYPS RADIATION DOSAGE (If Supplied By Facility): CTDIvol = ( 33.06 ) mGy, DLP = ( 821.45 ) mGycm TECHNIQUE: The patient was scanned in a multi detector CT scanner. High resolution axial imaging was performed without the administration of intravenous contrast material. Sagittal and coronal images were reconstructed. Individualized dose optimization techniques were used for this CT. COMPARISON: 12/08/2018 FINDINGS: FRONTAL SINUSES: Mucosal thickening in the right frontal sinus consistent with sinusitis. ETHMOIDAL SINUSES: Opacification of multiple ethmoid air cells consistent with sinusitis. MAXILLARY SINUSES: Severe mucosal thickening in the right maxillary sinus consistent with chronic sinusitis. SPHENOIDAL SINUSES: Mucosal thickening of the left sphenoid sinus consistent with sinusitis. Status post creation of a window within the medial wall of the left maxillary sinus. The right ostiomeatal unit is patent. Normal bilateral middle turbinates. Normal bilateral inferior turbinates. There is a left sided nasal septal deviation, but without a nasal septal spur. There is patency of the bilateral nasal airways. The visualized osseous structures are normal. The visualized bilateral orbital contents are normal. CT/Sinus/Facial Bone IMPRESSION: 1. Chronic right frontal, bilateral ethmoid, left sphenoid, and right maxillary sinusitis. 2. Status post creation of a window within the medial wall the left maxillary sinus. 3. Patent right ostiomeatal unit. Electronically Signed: Alin Michelle MD at 7:46 EDT Tel , Service support ,
== END ==
PROVIDERS: PCP Family Medicine; Referring Provider Otolaryngology; Visit Provider Otolaryngology
DX: J32.9 Chronic sinusitis, unspecified (principal); J33.9 Nasal polyp, unspecified
CPT/HCPCS: 70486

== ENCOUNTER 2020-11-09 07:29 | Outpatient (RCR) | payer SELFPAY ==
--- NOTE | 2021-03-01 08:03 | HP.PT.NRP ---
BLANCA TOWNSEND was seen in my office for initial evaluation on . The following Plan of Care was established for this patient: This patient was last seen in our office . Pertinent comments regarding their Physical therapy will appear below: Self pay DN At this point I will be discontinuing this patient from physical therapy. I would be happy to see this patient again in the future if found appropriate by the physician. Thank you! FOLRI IrizarryT
== END 2020-11-09 19:00 | disposition home or self-care (01) ==
LOC: PT 07:29
PROVIDERS: PCP Family Medicine
DX: S03.00XD Dislocation of jaw, unspecified side, subsequent encounter (principal)

== ENCOUNTER → 2020-11-10 10:35 | Outpatient (CLI) | payer OTHER, SELFPAY ==
--- NOTE | 2020-11-10 10:48 | BD_ITS ---
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 COMPARISON: Comparison is made with prior study dated 10/29/2015. FINDINGS: Lumbar Spine (L1-L4): g/cm2 (0.861) / T-score (-1.7) / Z-score (-0.4) Findings are suggestive of osteopenia with a moderate fracture risk. Left Femur Total: g/cm2 (0.803) / T-score (-1.1) / Z-score (-0.3) Left Femoral Neck: g/cm2 (0.634) / T-score (-1.9) / Z-score (-0.8) Right Femur Total: g/cm2 (0.828) / T-score (-0.9) / Z-score (-0.1) Right Femoral Neck: g/cm2 (0.672) / T-score (-1.6) / Z-score (-0.4) The T-Scores on the most recent prior examination were: Lumbar Spine (L1-L4): There has been worsening of bone density since the previous examination. Left Femur Total: which represents a worsening of 11.4%. Right Femur Total: which represents a worsening of 9.9%. BD/Dexa Bone Density Study IMPRESSION: The patient is considered osteopenic as outlined below according to World Macario Organization (WHO) criteria with a moderate fracture risk. There has been worsening of bone density since the previous examination. Reference Information: The T-score is the number of standard deviations above or below the standard which is normal for young adults at their peak bone mineral density. The World Health Organization (WHO) interprets the T-scores as follows: Above -1 Normal bone density Between -1 and -2.5 Osteopenia Equal to / or below -2.5 Osteoporosis As a practical clinical guideline, osteopenia may be graded as follows: Mild -1 through -1.5 Moderate -1.6 through -2.0 Severe -2.1 through -2.4 The Z-score is the number of standard deviations above or below age-matched controls. A Z-score of less than -1.5 would be considered abnormal. References: 1. NIH Osteoporosis and Related Bone Diseases www osteo.org 2. International Society for Clinical Densitometry www iscd.org 3. National Osteoporosis Foundation www nof.org Electronically Signed: Trevon Soni MD at 9:00 EDT , Service support ,
== END ==
PROVIDERS: PCP Family Medicine; Visit Provider Family Medicine
DX: Z78.0 Asymptomatic menopausal state (principal)
CPT/HCPCS: 77080

== ENCOUNTER 2020-11-30 08:48 | Day surgery (SDC) | payer OTHER, SELFPAY ==
--- NOTE | 2020-11-24 10:13 | EKG12_ITS ---
Test Reason : PREOP Blood Pressure : / mmHG Vent. Rate : 055 BPM Atrial Rate : 055 BPM P-R Int : 130 ms QRS Dur : 080 ms QT Int : 454 ms P-R-T Axes : 039 047 028 degrees QTc Int : 434 ms Sinus bradycardia Nonspecific ST abnormality Abnormal ECG Confirmed by CRISTY CARPENTER, KEITH ([id number]), image editor JULIO CORTES ([id number]) on 11/25/2020 1:17:03 PM Referred By: Bennie Joshi Confirmed By:KEITH MUNIZ MD
[2020-11-25 10:11] LABS: Hematocrit 41.3 % (37-47); Mean Corp Hgb Conc 33.9 g/dL (32-36); Mean Corpuscular Hgb 33.1 pg (27.0-32.0); Mean Corpuscular Volume 97.6 fL (81-99); Mean Platelet Vol. 10.3 fl (6.2-12.0); Platelet Count 410 K/mm3 (150-450); RBC Distribution Width CV 11.6 % (11.6-14.6); RBC Distribution Width SD 41.6 fl (35.1-43.9); Red Blood Count 4.23 M/mm3 (4.2-5.4); White Blood Count 5.4 K/mm3 (4.4-11.0)
[2020-11-25 10:33] LABS: Anion Gap 4 (5-15); BUN 14 mg/dL (7-18); BUN/Creat Ratio 19.3 RATIO (10-20); Calcium,Total 9.6 mg/dL (8.5-10.1); Chloride 104 mmol/L (98-107); Creatinine, Serum 0.72 mg/dL (0.55-1.02); EST Glomerular Filtration Rate 88 mL/min (>60); Est Glom Filt Rate - Afr Amer 106 mL/min (>60); Glucose 87 mg/dL (74-106); Potassium 4.2 mmol/L (3.5-5.1); Sodium Level 137 mmol/L (136-145)
--- NOTE | 2020-11-30 | ETH_PTH ---
PATIENT: BLANCA TOWNSEND LOC: [facility] [place] U#:[id number] AGE/SX: 55/F ROOM: RE11/30/[address]: Dr. Bennie Joshi MD : 1965 BED: DIS: 11/30/2020 SPEC #: [id number] RECD: 12/01/20 08:10 STATUS: TIBURCIO DOMENICO #: [id number] JIMENA: 11/30/20 00:[address]: Bennie Joshi DEPT: SURGICAL PATHOLOGY RECD BY: Rehan Wallace ENTERED: 12/01/20 08:11 SP TYPE: ETH TISS OTHR DR: Dr. Chaka Herbert MD Tissues: A - Ethmoid sinus, NOS B - Ethmoid sinus, NOS Procedures: Decalcification bone/plaque Surgery Specimen Level IV HEADER OPERATION: Right total ethmoidectomy, right maxillary antrostomy PRE-OP DIAGNOSIS: Chronic sinusitis TISSUE SUBMITTED: A ? Right sinus contents, B ? Left sinus contents MICROSCOPIC DIAGNOSIS A. Right sinus contents: Fragments of respiratory mucosa with chronic inflammation and bone. B. Left sinus contents: Fragments of respiratory mucosa with chronic inflammation and bone. ALECIA:shanelle 12/04/2020 MICROSCOPIC DESCRIPTION Slides are reviewed. GROSS DESCRIPTION A - Received in fixative is one container labeled with the patient's name and designated right sinus contents. The specimen consists of multiple pieces of singh soft tissue mixed with fragments of bone that in aggregate measure 2 x 1 x 0.2 cm. The entire specimen is submitted in one cassette after decalcification. B - Received in fixative is one container labeled with the patient's name and designated left sinus contents. The specimen consists of multiple fragments of soft tissue mixed with fragments of bone that in aggregate measure 0.5 x 0.5 x 0.1 cm. The entire specimen is submitted in one cassette after decalcification. / ALECIA:shanelle 12/01/20 TC:3 CPT: 96744 x2, 20496 x2
[2020-11-30] MEDS: Oxymetazoline 0.05% 1 SPRAY SPRAY.BTL NASAL (07:00)
[2020-11-30] MEDS: Lactated Ringers 1,000 ML 100 ML IV ×2 (09:25→11:31)
[2020-11-30 09:27] VITALS: BP 142/78; PULSE 72; RESP 16; TEMP 36.5; O2SAT 100; BMI 21.3
--- NOTE | 2020-11-30 10:27 | PCM.DC.SUM ---
Providers Primary Care Physician: Dr. Chaka Herbert MD Reason For Visit: BILATERAL ETHMOIDECTOMY, MAXILLARY ANTRO Medications at Discharge Home Medications calcium carbonate-vitamin D3 [Calcium 500 + D (D3)] 1 tab PO DAILY 11/23/20 hydrocortisone 1 applic TOPICAL DAILY PRN PRN 11/23/20 Weight / BMI Weight Weight: 56.4 kg Body Mass Index (BMI) 21.3 ABG / Lab / Microbiology Data Result Diagrams: 11/25/20 07:36 11/25/20 07:36 D/C Instructions Discharge Diet: No restrictions Discharge Activity: Return to Normal Activity and - (No nose blowing. Start Neti pot irrigation tomorrow. Irrigate 4x/day) Additional Instructions: Start prescribed antibiotics tonight Please Follow Up With: Bennie Joshi MD When: Next week Meaningful Use Info Meaningful Use Diagnoses (Choose all that apply): None applicable Discharge Plan Admission Attending Provider: Bennie Joshi Primary Care Provider: Chaka Herbert Discharge Orders/Prescriptions Prescriptions: No Action hydrocortisone 0.25 % Cream 1 applic TOPICAL DAILY PRN PRN (Reason: eczema) RF: 0 calcium carbonate-vitamin D3 [Calcium 500 + D (D3)] 500 mg(1,250mg) -125 unit Tablet 1 tab PO DAILY RF: 0 Referrals / Follow Up: Chaka Herbert MD [Primary Care Provider] - Disposition Disposition (needs filled in before D/C Order can be placed): Home, Self Care
[2020-11-30] MEDS: Lidocaine 1% /Epi 1:100 (20ml) 20 ML Vial (11:30)
--- NOTE | 2020-11-30 11:55 | OP.PCM_ITS ---
Report of Operation Date of Procedure: 11/30/20 Pre-Operative Diagnosis: chronic sinusitis Post-Operative Diagnosis: same Surgery/Procedure Performed:: Right total ethmoidectomy; Right sphenoidotomy; Right maxillary antrostomy; Left total ethmoidectomy Surgeon: Bennie Joshi Type of Anesthesia: General Anesthesiologist: Jovani Bermudez Specimen's removed: sinus contents Estimated Blood Loss (mL): minimal Description of Procedure: The patient was taken to the operating room on 11/30/2020. The patient was placed in the supine position on the operating table. The patient was given sufficient general endotracheal anesthesia. The head of bed was elevated 30 degrees. The navigation system was placed and verified per protocol and found to be accurate. 0 and 30 degrees rigid nasal endoscopes were used throughout the entire case. The middle turbinate uncinate process and polyps were injected with 1% lidocaine with epinephrine bilaterally. The right middle turbinate was medialized with a Castell elevator. Polyp was removed from the middle meatus using a sinus shaver. A ball-tipped sinus seeker was placed into the patient's maxillary sinus. The uncinate process was taken down using a microdebrider. Next, the ethmoid bulla was opened with a small curette. Anterior and posterior ethmoidectomy were then carried out using curette, sinus shaver and 45 degree Blakesley Dl forceps. Ethmoid cells were verified for relation to the skull base and orbit prior to being entered with the navigation system. The front face of the sphenoid was opened with a suction. Jas-Cut forceps were then used to widen the opening. I then placed Afrin pledgets into the sinonasal cavity. Next attention was turned to the left side. The middle turbinate was medialized with a Castell elevator. A polyp was removed from the ethmoid area using a sinus shaver. Ethmoid cells were verified for relation to the skull base and orbit prior to being entered with the navigation system. Ethmoid cells were opened using a sinus shaver. Hemostasis was then achieved using Afrin pledgets and small amount of electro cautery. The pledgets were then removed bilaterally and Anam powder was applied bilaterally for absolute hemostasis. The procedure was then terminated. The patient was then awoken and brought to the recovery room in stable condition. blood loss minimal, replacement none. Sponge, needle, instrument count were correct at the end of the procedure.
[2020-11-30 12:06] VITALS: BP 141/72; BP 142/78; PULSE 87; RESP 14; TEMP 36.2; O2SAT 97
[2020-11-30 12:15] VITALS: BP 130/87; BP 142/78; PULSE 83; RESP 16; O2SAT 95
[2020-11-30 12:45] VITALS: BP 134/71; BP 142/78; PULSE 62; RESP 16; TEMP 36.5; O2SAT 98
[2020-11-30 13:35] VITALS: BP 131/72; BP 142/78; PULSE 58; RESP 16; TEMP 36.3; O2SAT 96
== END 2020-11-30 13:53 | disposition home or self-care (01) ==
LOC: SDC 08:49 → AC 08:49
PROVIDERS: PCP Family Medicine; Referring Provider Otolaryngology; Visit Provider Otolaryngology
PROC: (CPT 31256; principal; 2020-11-30 09:50)
DX: J32.9 Chronic sinusitis, unspecified (principal); Z78.0 Asymptomatic menopausal state; Z85.820 Personal history of malignant melanoma of skin
CPT/HCPCS: 31256; 31257; 36415; 80048; 85027; 88305; 88311; 93005; J7120; J2405

== ENCOUNTER 2021-04-07 07:00 | Outpatient (RCR) | payer OTHER, SELFPAY ==
--- NOTE | 2020-06-04 08:58 | MASS.EVAL_ITS ---
Massage Therapy Evaluation: INITIAL EVALUATION: DATE: 06/04/2020 PT NAME: BLANCA TOWNSEND : 1965 V#:[id number] REF PHYS: DR. 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 BLANCA WAS REFERRED TO [facility] FOR MASSOTHERAPY EVALUATION BY DR. MARSHALL WITH A DIAGNOSIS OF INTERMITTENT HEADACHE, WITH UPPER BACK AND NECK PAIN. BLANCA REPORTS LIVING A ACTIVE LIFESTYLE AND OVERALL RATES HER HEALTH TO BE IN GREAT CONDITION. THE SYMPTOMS COMMENCED DUE TO HER WORK AND ACTIVE LIFESTYLE. NO MEDICATIONS WERE LISTED AT THIS TIME. OBJECTIVE: THE FIRST TREATMENT CONSISTED OF AN ONE HOUR DEEP TISSUE UPPER BODY MASSAGE. TRIGGER POINT THERAPY AND MUSCLE STRIPPING WERE PERFORMED ON THE RHOMBOIDS AND SHOULDERS. THE PATIENT WAS EXPERIENCING A RASH ON FACE AND NECK; SO LESS TREATMENT ON THE NECK DURING THIS TREATMENT. THE FOCUS OF TREATMENT WAS ON THE POSTERIOR NECK, UPPER TRAPEZIUM, PARASPINALS, SUBOCCIPITALS, AND QUADRATUS LUMBORUM. ASSESSMENT: UPON ASSESSMENT THE MUSCLE TENSION WAS HIGH IN THE SHOULDERS AND SUBOCCIPITAL REGION. LESS MYOFASCIAL MOVEMENT ON THE LEFT SIDE OF SHOULDERS VS. THE RIGHT SIDE. THE PATIENT NOTED THE MOST TENDERNESS WAS THE LEFT SHOULDER BLADE INTO LEVATOR AREA. THE STRESS LEVEL DID DECREASE DURING THE MASSAGE. I DO FEEL THE PATIENT IS A GREAT CANDIDATE FOR MASSOTHERAPY AT THIS TIME. PLAN: THE PLAN OF CARE WAS REVIEWED WITH THE PATIENT. THE PATIENT IS TO BE SEEN ON A REGULAR BASIS FOR A ONE HOUR SESSIONS OF MASSOTHERAPY FOR A TOTAL OF 10 VISITS AT THIS TIME.
--- NOTE | 2021-02-11 08:32 | MASS.DISCH ---
Massage Therapy Discharge Summary: DATE: 02/11/21 V#:[id number] PT NAME: BLANCA TOWNSEND : 1965 REF PHYS: THE PATIENT WAS SEE FOR MASSOTHERAPY EVALUATION ON 06/04/20 WITH A DIAGNOSIS OF BACK PAIN. THE PATIENT WAS TREATED WITH 10 SESSIONS OF MASSAGE CONSISTING OF ONE HOUR DEEP TISSUE MASSAGE. HER GOALS OF TREATMENT WERE MET SHE USED ALL 10 SESSIONS OF MASSAGE FOR 2020. AT THIS TIME I AM DISCHARGING THE PATIENT FROM OUR CARE AT THE [facility].
== END 2021-04-07 19:00 | disposition home or self-care (01) ==
LOC: MASS 07:00
PROVIDERS: PCP Family Medicine; Referring Provider Family Medicine; Visit Provider Family Medicine
DX: R51.9 Headache, unspecified (principal); M54.2 Cervicalgia; M54.6 Pain in thoracic spine
CPT/HCPCS: 97124

== ENCOUNTER → 2021-08-30 | Outpatient (CLI) | payer OTHER, SELFPAY ==
--- NOTE | 2021-08-30 07:05 | BI_ITS ---
MAMMOGRAPHY - BILATERAL SCREENING REASON FOR EXAM: Female, 56 years old. Routine annual screening examination. PERTINENT HISTORY: Non-contributory. TECHNIQUE: Digital bilateral breast rambo (3D mammographic acquisition) in the CC and MLO projections. 2-D mediolateral oblique (MLO) and craniocaudad (CC) views of both breasts were obtained. CAD: Full Field Digital Mammography with Computer Added Detection was performed. COMPARISON: Comparison is made with prior study dated 07/15/2020 and 07/02/2019. FINDINGS: Breast Composition: The breasts are heterogeneously dense, which may obscure small masses. There is a new 7.3 mm x 3.2 mm well-defined nodule in the upper anterior lateral aspect of the left breast. Correlation with ultrasound is recommended. Stable small benign-appearing bilateral axillary nodes. No other significant abnormalities are identified. BI/SCRN MAMM (CAD)W/RAMBO BILAT IMPRESSION: New 7.3 mm x 3.2 mm well-defined nodule in the upper lateral anterior aspect of the left breast. Correlation with ultrasound is recommended. ASSESSMENT CATEGORY: BIRADS Category 0: Incomplete. Need additional imaging evaluation. A letter regarding these results will be sent to the patient by the facility within 30 days. Approximately 10% of breast cancers are not detected by mammography. A normal mammogram should not delay biopsy of a clinically suspicious abnormality. [id number] Electronically Signed: Trevon Soni MD at 8:23 EDT ,
== END | disposition home or self-care (01) ==
PROVIDERS: PCP Family Medicine; Referring Provider Student in an Organized Health Care Education/Training Program; Visit Provider Student in an Organized Health Care Education/Training Program
DX: Z12.31 Encounter for screening mammogram for malignant neoplasm of breast (principal)
CPT/HCPCS: 77063; 77067

== ENCOUNTER → 2021-09-01 | Outpatient (CLI) | payer OTHER, SELFPAY ==
--- NOTE | 2021-09-01 14:24 | US_ITS ---
STUDY: ULTRASOUND BREAST - LEFT REASON FOR EXAM: Female, 56 years old. Abnormal screening mammogram. TECHNIQUE: Axial and longitudinal images of the LEFT breast were performed with a high resolution ultrasound transducer. # OF IMAGES: 23 COMPARISON: Comparison is made with prior sonogram dated 04/10/2018. FINDINGS: LEFT Breast: The mammographic abnormality corresponds to a 5 mm x 5 mm x 2 mm well-defined hypoechoic nodule with a central fatty hilum suggestive of a small lymph node. US/Breast Limited Unilateral IMPRESSION: Findings suggestive of a 5 mm x 5 mm x 2 mm lymph node corresponding to the mammographic abnormality. This is unchanged. ASSESSMENT CATEGORY: BIRADS Category 2: Benign. A letter regarding these results will be sent to the patient by the facility within 30 days. Electronically Signed: Trevon Soni MD at 15:04 EDT ,
== END | disposition home or self-care (01) ==
LOC: OPUS 14:22
PROVIDERS: PCP Family Medicine; Visit Provider Student in an Organized Health Care Education/Training Program
DX: R92.8 Other abnormal and inconclusive findings on diagnostic imaging of breast (principal); N63.20 Unspecified lump in the left breast, unspecified quadrant
CPT/HCPCS: 76642

== ENCOUNTER → 2022-08-10 | Outpatient (CLI) | payer OTHER, SELFPAY ==
[2022-08-10 10:48] LABS: Absolute Lymphocyte Count 1.76 X10^3/uL (0.83-4.51); Absolute Neutrophil Count 2.2 X10^3/uL (2.0-7.7); Basophil# 0.06 X10^3/uL; Basophil% 1.2 % (0-1); Eosinophil# 0.41 X10^3/uL; Eosinophils% 8.3 % (0-5); Hematocrit 41.3 % (37-47); Lymphocyte # 1.76 X10^3/ul (0.83-4.51); Lymphocyte % 35.5 % (19-41); Mean Corp Hgb Conc 33.9 g/dL (32-36); Mean Corpuscular Volume 100.2 fL (81-99); Mean Platelet Vol. 10.1 fl (6.2-12.0); Monocyte# 0.52 X10^3/uL; Monocyte% 10.5 % (0-10); NRBC Flagged by Analyzer 0 % (0-5); Neutrophil % 44.3 % (47-70); Platelet Count 373 K/mm3 (150-450); RBC Distribution Width CV 11.8 % (11.6-14.6); RBC Distribution Width SD 42.7 fl (35.1-43.9); Red Blood Count 4.12 M/mm3 (4.2-5.4)
[2022-08-10 11:15] LABS: ALB/GLOB Ratio 1.2 RATIO (0.9-2.4); AST(SGOT) 16 U/L (15-37); Alanine Aminotransfer ALT/SGPT 18 U/L (13-56); Albumin, Serum 3.9 g/dL (3.2-5.0); Alkaline Phosphatase 75 U/L (45-117); Anion Gap 3 (5-15); BUN 10 mg/dL (7-18); BUN/Creat Ratio 14.6 RATIO (10-20); Calcium,Total 9.4 mg/dL (8.5-10.1); Chloride 110 mmol/L (98-107); Cholesterol 218 mg/dL (200); Creatinine, Serum 0.69 mg/dL (0.55-1.02); EST Glomerular Filtration Rate 93 mL/min (>60); Est Glom Filt Rate - Afr Amer 112 mL/min (>60); Globulin 3.2 g/dL (2.2-4.2); Glucose 90 mg/dL (74-106); High Density Lipoprotein 88 mg/dL; Potassium 3.7 mmol/L (3.5-5.1); Protein, Total 7.1 g/dL (6.4-8.2); Sodium Level 137 mmol/L (136-145); Triglycerides 107 mg/dL; Very Low Density Lipoprotein 21 mg/dL (5-40)
[2022-08-10 11:21] LABS: Hemoglobin A1c 5.2 % (3.8-5.6)
== END | disposition home or self-care (01) ==
LOC: MFPLAB 08:58
PROVIDERS: PCP Family Medicine; Referring Provider Family Medicine; Visit Provider Family Medicine
DX: Z00.00 Encounter for general adult medical examination without abnormal findings (principal); Z13.0 Encounter for screening for diseases of the blood and blood-forming organs and certain disorders involving the immune mechanism; Z13.220 Encounter for screening for lipoid disorders; Z13.29 Encounter for screening for other suspected endocrine disorder; Z13.1 Encounter for screening for diabetes mellitus
CPT/HCPCS: 36415; 80053; 80061; 83036; 84443; 85025

== ENCOUNTER → 2022-09-01 | Outpatient (CLI) | payer OTHER, SELFPAY ==
--- NOTE | 2022-09-01 08:40 | BI_ITS ---
MAMMOGRAPHY - BILATERAL SCREENING REASON FOR EXAM: Female, 57 years old. Routine annual screening examination. PERTINENT HISTORY: Non-contributory. TECHNIQUE: Digital bilateral breast rambo (3D mammographic acquisition) in the CC and MLO projections. 2-D mediolateral oblique (MLO) and craniocaudad (CC) views of both breasts were obtained. CAD: Full Field Digital Mammography with Computer Added Detection was performed. COMPARISON: Comparison is made with prior study dated August 30, 2021 and July 15, 2020. FINDINGS: Breast Composition: The breasts are heterogeneously dense, which may obscure small masses. There are no dominant masses or suspicious calcifications. The previously seen well-defined nodule in the upper anterior aspect of the left breast has decreased in size. It presently measures 5.7 mm. Stable small benign appearing bilateral axillary nodes. No other significant abnormalities are identified. BI/SCRN MAMM (CAD)W/RAMBO BILAT IMPRESSION: Stable bilateral screening mammogram. Yearly follow-up mammogram recommended. (A) ASSESSMENT CATEGORY: BIRADS Category 2: Benign. A letter regarding these results will be sent to the patient by the facility within 30 days. Approximately 10% of breast cancers are not detected by mammography. A normal mammogram should not delay biopsy of a clinically suspicious abnormality. [id number] Electronically Signed: Trevon Soni MD at 9:50 EDT ,
== END | disposition home or self-care (01) ==
LOC: OPBI 08:38
PROVIDERS: PCP Family Medicine; Referring Provider Family Medicine; Visit Provider Family Medicine
DX: Z12.31 Encounter for screening mammogram for malignant neoplasm of breast (principal)
CPT/HCPCS: 77063; 77067

== ENCOUNTER → 2023-07-20 | Outpatient (CLI) | payer OTHER, SELFPAY ==
--- NOTE | 2023-07-20 09:18 | MRI_ITS ---
STUDY: MRI LEFT KNEE REASON FOR EXAM: Female, 58 years old. Left lateral / posterior knee pain, x 3 weeks, moderate pain with mobility x 2 weeks, turned to severe when when twisting 5 days ago. TECHNIQUE: Standardized fat and water weighted pulse sequences were obtained in all 3 orthogonal planes. COMPARISON: Left knee radiographs dated 07/19/2023. FINDINGS: There is a partial tear of the posterior medial meniscal root. There is low-grade chondromalacia along the anterior to mid weightbearing surface of the medial femoral condyle with underlying subchondral marrow edema (sagittal T2 series 5 images 10-11). Normal medial collateral ligamentous complex (MCL). Normal distal semimembranosus, gracilis and semitendinosus tendons. Normal lateral meniscus. Normal hyaline cartilage of the lateral femorotibial compartment. Normal lateral femoral condyle and tibial plateau. Normal proximal tibiofibular articulation. Normal lateral collateral (fibular) ligament. Normal popliteus tendon. Normal biceps femoris tendon. Normal anterior cruciate ligament (ACL). Normal posterior cruciate ligament (PCL). There is moderate to high-grade chondromalacia along the medial patellar facet. Congruent patellofemoral articulation. Normal medial and lateral patellar retinaculum. Normal quadriceps tendon. Normal patellar tendon. Normal Hoffa''s fat pad. There is a cluster of low signal calcified loose bodies in the posterior femorotibial joint recess, measuring up to 6 mm in diameter. There is a tiny joint effusion. There is no significant popliteal cyst. The soft tissues are unremarkable. There is no acute fracture. MRI/Lower Ext Joint Only (Routine) IMPRESSION: Partial tear of the posterior medial meniscal root. Low-grade chondromalacia along the anterior to mid weightbearing surface of the medial femoral condyle with underlying subchondral marrow edema. 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 Cluster of calcified loose bodies in the posterior femorotibial joint recess, measuring up to 6 mm in diameter. Tiny joint effusion. Electronically Signed: Neal Galvez MD at 10:52 EDT ,
== END | disposition home or self-care (01) ==
LOC: MRI 09:16
PROVIDERS: PCP Family Medicine; Referring Provider Orthopaedic Surgery; Visit Provider Orthopaedic Surgery
DX: S83.207A Unspecified tear of unspecified meniscus, current injury, left knee, initial encounter (principal); M84.30XA Stress fracture, unspecified site, initial encounter for fracture; X58.XXXA Exposure to other specified factors, initial encounter
CPT/HCPCS: 73721

== ENCOUNTER 2023-07-27 10:30 | Day surgery (SDC) | payer OTHER, SELFPAY ==
[2023-07-27] VITALS (8 sets, daily range): BP systolic 124–157; BP diastolic 86–94; PULSE 62–89; RESP 16–17; TEMP 36.3–36.6; O2SAT 95–100; BMI 21.6
[2023-07-27] MEDS: Lactated Ringers 1,000 ML 15 ML IV (10:56)
--- NOTE | 2023-07-27 11:14 | PCM.HP.STD ---
HPI - General HPI Narrative BLANCA TOWNSEND, is a 58 F who presents for left knee arthroscopy, medial meniscus repair. no changes to h and p. left knee marked. rab post op instructions and narcotic counselling. ok to proceed. MR#: [id number] Acct: [id number] Name: BLANCA TOWNSEND Rep #: [id number] : 1965 Provider: Dr. Chaka Hernandez MD Age/Sex: 58/F [place] [facility] Status: Signed Intake Vital Signs 07/19/2407:03 Height 5 ft 4 in Weight: 122 lb BMI 20.9 Intake Visit Reasons: LEFT KNEE Chief Complaint: Left knee pain Accompanied by: Self Is patient in pain?: No Allergies latex Allergy (Intermediate, Verified 07/20/23 15:44) RashPenicillins Allergy (Intermediate, Verified 07/20/23 15:44) HIVES ?? Medications calcium carbonate 500 mg-vitamin D3 3.125 mcg (125 unit) tablet 1 tab PO DAILY supplement 11/23/20 [History Confirmed 07/20/23] hydrocortisone 0.25 % topical cream 1 applic topical DAILY PRN PRN eczema 11/23/20 [History Confirmed 07/20/23] etodolac 500 mg tablet 500 mg PO BID #40 tabs 07/19/23 [Rx Confirmed 07/20/23] PFSH Medical History (Updated 07/20/23 @ 16:05 by Chaka Hernandez MD) Acute medial meniscus tear of left knee Alcohol use Eczema Headaches, cluster History of melanoma History of stress test Non-smoker Post-menopausal TMJ (temporomandibular joint disorder) Surgical History History of ethmoidectomy History of tubal ligation Family History Other Colon cancer Social History Smoking Status: Never smoker alcohol intake: current alcohol intake frequency: holidays/special occasions only substance use type: does not use what type of physical activity do you participate in: walking and bicycling frequency: 5-6 times per week HPI LEFT KNEE Details: This documentation accurately reflects the service provided and the decisions made by me, Dr. Chaka Hernandez MD 07/20/23 1405. Part of today?s visit was documented by [ ], acting as scribe. BLANCA TOWNSEND is a 58 year old F here today for 5 days ago, jumping at a moth, felt a pop PM in the knee, 3 weeks of developing pain, has been [facility] since monday. 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 hikes up [address] [facility]. some catching. tried nsaids 3 weeks, still on crutches, self directed exercises. Ortho Exam General General: Yes no acute distress Neurologic: Yes alert and Yes oriented x3 Psychologic: Yes reasonable and appropriate Right Knee Patella Translation: 2 Left Knee Skin/Wound: Yes CDI, No ecchymosis, No erythema and No swelling Knee ROM: Yes ROM-Flexion 0-140 Examination: Yes med jt line tenderness, No Lat jt line tenderness, No TTP inf pole patella, Yes Crepitus, Yes Pain with flexion, Yes Lara's Test, No TTP Patellar tendon, No TTP Tibial tubercle, No TTP Pes Anserine and No Illiotibial band tenderness Quad Atrophy: No Stability: NML: Anterior Drawer, NML: Yecenia, NML: Posterior Drawer, NML: Valgus 0, NML: Valgus 30, NML: Varus 0 and NML: Varus 30 Patella Translation: 2 Patellar Tilt Normal: Yes Patella Grind: Yes KNEE: nvi, antalgic gait, normal alignment Supplemental Info [facility] [address] [place] [address] Knee 4 or More Views MR#: [id number] Acct: [id number] Name: LBANCA TOWNSEND Rep #: [id number] : 1965 F 58 From: Trevon Soni MD PCP: Jen Ortiz DO Status: DEP AMB Study: Knee 4 or More Views Date of Exam: 07/19/23 Exam# [id number] Ordering Dr: Darien Contreras DO STUDY: X-RAY - LEFT KNEE REASON FOR EXAM: Female, 58 years old. Pain. Unable to bear weight. TECHNIQUE: 4 view(s) of the knee. COMPARISON: None. FINDINGS: Normal visualized distal femur. Normal visualized proximal tibia and fibula. Normal proximal tibiofibular articulation. Normal medial femorotibial compartment. Normal lateral femorotibial compartment. Normal patellofemoral articulation. Several small well-corticated bony fragments are seen within the joint space. This may represent loose bodies within the joint. The soft tissue structures are unremarkable. RAD/Knee 4 or More Views IMPRESSION: Well-defined corticated bony densities within the knee joint suggestive of intra-articular loose bodies. Electronically Signed: Trevon Soni MD at 14:55 EDT Reading Location ID and State: [address] [place] [address] , Service support , [facility] Imaging Services [address] [place] [id number] Lower Ext Joint Only (Routine) MR#: [id number] Acct: [id number] Name: BLANCA TOWNSEND Rep #: [id number] : 1965 F 58 From: Neal Galvez MD PCP: Jen Ortiz DO Status: REG CLI Study: Lower Ext Joint Only (Routine) Date of Exam: 07/20/23 Exam# [id number] Ordering Dr: Darien Contreras DO STUDY: MRI LEFT KNEE REASON FOR EXAM: Female, 58 years old. Left lateral / posterior knee pain, x 3 weeks, moderate pain with mobility x 2 weeks, turned to severe when when twisting 5 days ago. TECHNIQUE: Standardized fat and water weighted pulse sequences were obtained in all 3 orthogonal planes. COMPARISON: Left knee radiographs dated 07/19/2023. FINDINGS: There is a partial tear of the posterior medial meniscal root. There is low-grade chondromalacia along the anterior to mid weightbearing surface of the medial femoral condyle with underlying subchondral marrow edema (sagittal T2 series 5 images 10-11). Normal medial collateral ligamentous complex (MCL). Normal distal semimembranosus, gracilis and semitendinosus tendons. Normal lateral meniscus. Normal hyaline cartilage of the lateral femorotibial compartment. Normal lateral femoral condyle and tibial plateau. Normal proximal tibiofibular articulation. Normal lateral collateral (fibular) ligament. Normal popliteus tendon. Normal biceps femoris tendon. Normal anterior cruciate ligament (ACL). Normal posterior cruciate ligament (PCL). There is moderate to high-grade chondromalacia along the medial patellar facet. Congruent patellofemoral articulation. Normal medial and lateral patellar retinaculum. Normal quadriceps tendon. Normal patellar tendon. Normal Hoffa''s fat pad. There is a cluster of low signal calcified loose bodies in the posterior femorotibial joint recess, measuring up to 6 mm in diameter. There is a tiny joint effusion. There is no significant popliteal cyst. The soft tissues are unremarkable. There is no acute fracture. MRI/Lower Ext Joint Only (Routine) IMPRESSION: Partial tear of the posterior medial meniscal root. Low-grade chondromalacia along the anterior to mid weightbearing surface of the medial femoral condyle with underlying subchondral marrow edema. 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 Cluster of calcified loose bodies in the posterior femorotibial joint recess, measuring up to 6 mm in diameter. Tiny joint effusion. Electronically Signed: Neal Galvez MD at 10:52 EDT , agree w rad report Coding Level of Care Code Off vis,new,level 3 Diagnoses Patellofemoral arthrosis M17.10 Acute medial meniscus tear of left knee S83.242A Assessment and Plan Assessment and Plan (1) Patellofemoral arthrosis: Status: Acute Plan: 58-year-old female with a left knee medial meniscus root tear. The cartilage looks well-preserved in the medial compartment normal alignment. This appears to be an acute tear with mechanical symptoms and difficulty ambulating. The patient is extremely active doing very long miles long hikes and 10 miles of walking a day this is a significant change from her baseline. Patient counseled diagnosis prognosis and treatment options which include but not limited to rest ice anti-inflammatories active modifications cortisone injection bracing physical therapy as well as surgery. My hands this would be in the form of a left knee arthroscopy, medial meniscus repair. This would be a root repair. Will try to get the Arthrex all suture implant for this if not we will do this through a standard drill hole and either button or an suture anchor fixation. I explained the postoperative recovery 6 weeks of nonweightbearing after this 3 to 4 months for recovery. The patient understands wishes to proceed and signed the consent form for surgery. Pros and cons risks and benefits were discussed with the patient including but not limited to infection, pain, stiffness, bleeding, damage to surrounding structures, neurovascular injury, recurrence or retear, failure or wear of hardware or fixation, instability, fracture, deep vein thrombosis and pulmonary embolism, anesthetic risks, , patient dissatisfaction, need for further surgery and other risks. Patient understood and wished to proceed with surgery, and signed the informed consent documentation. (2) Acute medial meniscus tear of left knee: Status: Acute [facility] Medical History Acute medial meniscus tear of left knee Alcohol use Cancer Eczema Headaches, cluster History of melanoma History of stress test Non-smoker PONV (postoperative nausea and vomiting) Post-menopausal TMJ (temporomandibular joint disorder) Home Medications hydrocortisone 0.25 % topical cream 1 applic topical DAILY PRN PRN eczema 11/23/20 [History Last Taken Unknown] etodolac 500 mg tablet 500 mg PO BID #40 tabs 07/19/23 [Rx Last Taken Unknown] Allergy/AdvReac Type Severity Reaction Status Date / Time latex Allergy Intermediate Rash Verified 07/27/23 10:38 Penicillins Allergy Intermediate HIVES ?? Verified 07/27/23 10:38 Family History Other Colon cancer Surgical History History of ethmoidectomy History of tubal ligation Social History Smoking Status: Never smoker alcohol intake: current alcohol intake frequency: holidays/special occasions only substance use type: does not use what type of physical activity do you participate in: walking and bicycling frequency: 5-6 times per week Vital Signs Vital Signs Vital Signs: 07/27/23 10:56 07/27/23 10:56 Temperature 97.6 F L Temperature Source Temporal Pulse Rate 62 Respiratory Rate 17 Respiratory Pattern Normal Blood Pressure 128/88 H Blood Pressure Mean 101 Blood Pressure Source Monitor Blood Pressure Position Semi-Fowlers Blood Pressure Location Left Arm Pulse Ox 100 Oxygen Delivery Method Room Air Weight Weight: 126 lb 1.671 oz Body Mass Index (BMI) 21.6
[2023-07-27] MEDS: Cefazolin 2 GM in 0.9% Normal Saline (100mL Bag) 100 ML IV (11:45)
[2023-07-27] MEDS: Epinephrine (1 mg/ml) 1 MG/ML VIAL (12:09)
[2023-07-27] MEDS: Bupivacaine 0.25% 30 ML Vial (12:55)
--- NOTE | 2023-07-27 13:07 | OP.PCM_ITS ---
Problems Associated Problem List Diagnoses (1) Acute medial meniscus tear of left knee: Report of Operation Date of Procedure: 07/27/23 Pre-Operative Diagnosis: Left knee medial meniscus root tear Post-Operative Diagnosis: Same Surgery/Procedure Performed:: Left knee arthroscopy, root repair of medial meniscus Surgeon: Chaka Hernandez Type of Anesthesia: General and Local Anesthesiologist: Binu Jung Estimated Blood Loss (mL): 10 Description of Procedure: Patient brought to the operating room theater. Placed supine on the table. General anesthesia induced. 2 g IV Ancef administered prior to the start of the procedure. Tourniquet on the left thigh. Stress positioner used to the patient's left side. All bony prominences padded. SCD on the nonoperative leg. Lower extremity prepped and draped in the usual sterile fashion with chlorhexidine-based prep solution allowing over 3 minutes drying time prior to draping. Preoperative timeout performed to confirm the site patient and the surgery. Began by elevating the limb inflated the tourniquet to 250 mmHg. Made standard anterolateral and anteromedial arthroscopy portals. Did a full diagnostic arthroscopy. Minor grade I chondromalacia of the patellofemoral joint mostly on the patellar side trochlea appeared relatively normal. Medial lateral gutters are entered no loose bodies. Ligamentum mucosum removed ACL was normal stable to probing as well as the PCL. Lateral compartment some minor degenerative changes on the tibial side mostly 1 focal small 5 mm area of grade 2-3 changes otherwise grade 1 changes only on both sides lateral meniscus normal stable and solid to probing. Medial compartment entered. There was small area on the medial femoral condyle about 1 cm x 5 mm grade 1-2 changes only. Otherwise cartilage in the medial compartment was normal and healthy. The medial meniscus did indeed have a esteban tically oriented meniscus root tear for over 90% destabilizing the posterior root and posterior horn of the medial meniscus. 'Pie crusted' the proximal origin of the MCL using spinal needle to open up the medial compartment. Used shaver instrument on forward to shave the non articular aspect lateral side of the MCF to gain some room there for the suture passing device. I used gentle shaving instrument to debride the edges of the tear gently and stimulate healing in that area. I then used the meniscus root guide with the tip centered at the anteromedial aspect of the tibia using percutaneous incisions I then passed the guidewire to plan for the Arthrex suture lock knotless all suture implant specifically designed for root repairs. Pin passed to the root attachment site, just medial to that to not over-tension the repair. I removed the inner pin once I achieved a satisfactory position of that at the meniscus root site. I placed a passport cannula through the medial portal. Once inner pin removed, then nitinol wire passed and then grasped through passport canula. Drill tip removed. I then passed the 'sutureloc' all suture device through the tunnel just popping through and then pulled on the distal suture to deploy the anchor. I then docked the rest of the sutures through the lateral portal and then used the first blue repair suture first passing this from inferior to superior towards the capsular side of the meniscus root and then from superior to inferior more towards the anterior aspect of the knee. I then docked the suture and then I used the other repair suture for a Angel-Tr ripstop configuration of the sutures. I passed this from inferior to superior more towards the medial side of the knee. I then converted both sutures and sequentially tighten these to create a ripstop configuration. This was a nice crossing suture 't' shaped configuration. These were adequately tensioned under direct visualization until appropriate repair was achieved and solid fixation. Arthroscopy pictures taken and saved onto the system throughout the case. Distal end of the suture lock implant was then cut short. Wound thoroughly irrigated tourniquet let down meticulous hemostasis achieved. Skin cleaned with wet and dry dressing followed by closure of the portals with 3-0 Monocryl suture. I used 15 cc of quarter percent bupivacaine around the incision sites. Skin cleaned with wet and dry dressing followed application of Steri-Strips Adaptic 4 x 4 gauze ABD dressings and Reji wrap loosely wrapped with a hinged knee brace locked in full extension. Patient woken up from the general anesthetic transferred off the operating table and taken to postanesthetic care unit in stable condition. All sponge needle instrument counts were correct no clinical toe-touch weightbearing with crutches and discharged home according to day surgery criteria. cpt 23226? Grafts/Implants Used: arthrex sutureloc Complications none Admit VTE Documentation VTE Present on Admission: No VTE Mechan Device Prophylaxis: SCD's VTE Pharm Prophylaxis ordered?: Yes Procedures Musculoskeletal [id number]: Other Procedure See Report
--- NOTE | 2023-07-27 13:18 | DCINST_ITS ---
Discharge Instructions Diet Discharge Diet: No restrictions Activity Discharge Activity: Use Walker and Use Crutches Ice area for (Minutes): 10 Weight Bearing Status: Toe touch weight bearing Keep extremity elevated above heart level: Operative Extremity Dressing / Incision Call your doctor if your incision/area has: Continuous Slow Oozing, Sudden Increased Bleeding, Increased Pain/ Swelling, Increased Redness, Foul Smelling Discharge and Swelling at the incision site Remove Dressing in: leave in place till F/U Cleanse incision/area with: Do not get Incision Wet Additional Dressing/Incision Instructions:: if dressing needs changing, ok to change, incisions are small Follow Up Care Please Follow Up With: Chaka Hernandez MD When: next week Test Results: Test results from this visit will be discussed in further detail at your follow- up appointment, if applicable. Discharge Plan Admission Attending Provider: Chaka Hernandez Primary Care Provider: Jen Ortiz Discharge Orders/Prescriptions Prescriptions: New oxycodone-acetaminophen [Endocet] 5-325 mg tablet 1 tab PO Q4H MDD 6 PRN (Reason: pain) 5 Days Qty: 20 0RF aspirin 81 mg tablet,chewable 81 mg PO BID MDD 2 30 Days Qty: 60 0RF No Action etodolac 500 mg tablet 500 mg PO BID Qty: 40 0RF Hold Instructions: FOR SURGERY hydrocortisone 0.25 % Cream 1 applic TOPICAL DAILY PRN PRN (Reason: eczema) Referrals / Follow Up: Jen Ortiz DO [Primary Care Provider] - Chaka Hernandez MD [Med Staff - Active Staff] - Disposition Disposition (needs filled in before D/C Order can be placed): Home, Self Care
[2023-07-27] MEDS: Oxycodone/Apap 5/325 Tablet PO (13:53)
== END 2023-07-27 14:45 | disposition home or self-care (01) ==
LOC: SDC 10:32 → AC 10:32
PROVIDERS: PCP Family Medicine; Referring Provider Orthopaedic Surgery Sports Medicine; Visit Provider Orthopaedic Surgery Sports Medicine
PROC: (CPT 29870; principal; 2023-07-27 11:35)
DX: S83.242A Other tear of medial meniscus, current injury, left knee, initial encounter (principal); M17.10 Unilateral primary osteoarthritis, unspecified knee; M99.03 Segmental and somatic dysfunction of lumbar region; M99.04 Segmental and somatic dysfunction of sacral region; M99.05 Segmental and somatic dysfunction of pelvic region
CPT/HCPCS: 29882; 01400; C1713; J7120; J2405

== ENCOUNTER → 2023-09-19 | Outpatient (CLI) | payer OTHER, SELFPAY ==
[2023-09-19 15:50] LABS: Absolute Lymphocyte Count 1.77 X10^3/uL (0.83-4.51); Absolute Neutrophil Count 3.9 X10^3/uL (2.0-7.7); Basophil# 0.08 X10^3/uL; Basophil% 1.2 % (0-1); Eosinophil# 0.17 X10^3/uL; Eosinophils% 2.6 % (0-5); Hematocrit 40.6 % (37-47); Hemoglobin 13.8 g/dL (12.0-15.0); Lymphocyte # 1.77 X10^3/ul (0.83-4.51); Mean Corpuscular Hgb 33.9 pg (27.0-32.0); Mean Corpuscular Volume 99.8 fL (81-99); Mean Platelet Vol. 10.1 fl (6.2-12.0); Monocyte% 9.1 % (0-10); NRBC Flagged by Analyzer 0 % (0-5); Neutrophil # 3.92 X10^3/uL (2.7-7.7); Neutrophil % 59.8 % (47-70); Platelet Count 404 K/mm3 (150-450); RBC Distribution Width CV 11.9 % (11.6-14.6); RBC Distribution Width SD 43.3 fl (35.1-43.9); Red Blood Count 4.07 M/mm3 (4.2-5.4); White Blood Count 6.6 K/mm3 (4.4-11.0)
[2023-09-19 16:07] LABS: ALB/GLOB Ratio 1.1 RATIO (0.9-2.4); AST(SGOT) 17 U/L (15-37); Alanine Aminotransfer ALT/SGPT 20 U/L (13-56); Albumin, Serum 4.1 g/dL (3.2-5.0); Alkaline Phosphatase 94 U/L (45-117); Anion Gap 8 (5-15); BUN 13 mg/dL (7-18); Calcium,Total 9.6 mg/dL (8.5-10.1); Chloride 106 mmol/L (98-107); Cholesterol 218 mg/dL (200); Creatinine, Serum 0.68 mg/dL (0.55-1.02); EST Glomerular Filtration Rate 93 mL/min (>60); Est Glom Filt Rate - Afr Amer 112 mL/min (>60); Globulin 3.7 g/dL (2.2-4.2); Glucose 92 mg/dL (74-106); High Density Lipoprotein 85 mg/dL; Protein, Total 7.8 g/dL (6.4-8.2); Sodium Level 139 mmol/L (136-145); Triglycerides 92 mg/dL; Very Low Density Lipoprotein 18 mg/dL (5-40)
== END | disposition home or self-care (01) ==
LOC: BFHLAB 11:17
PROVIDERS: PCP Nurse Practitioner Family; Referring Provider Nurse Practitioner Family; Visit Provider Nurse Practitioner Family
DX: Z00.01 Encounter for general adult medical examination with abnormal findings (principal)
CPT/HCPCS: 36415; 80053; 80061; 85025

== ENCOUNTER 2023-10-03 10:37 | Outpatient (CLI) | payer OTHER, SELFPAY ==
--- NOTE | 2023-10-03 10:44 | BI_ITS ---
MAMMOGRAPHY - BILATERAL SCREENING REASON FOR EXAM: Female, 58 years old. Routine annual screening examination. PERTINENT HISTORY: Non-contributory. Prior ultrasound-guided breast biopsy. TECHNIQUE: Digital bilateral breast rambo (3D mammographic acquisition) in the CC and MLO projections. 2-D mediolateral oblique (MLO) and craniocaudad (CC) views of both breasts were obtained. CAD: Full Field Digital Mammography with Computer Added Detection was performed. COMPARISON: Comparison is made with prior study September 01, 2022 and August 30, 2021. FINDINGS: Breast Composition: The breasts are heterogeneously dense, which may obscure small masses. There are no dominant masses or suspicious calcifications. Stable 5.3 mm well-defined nodule in the anterior upper aspect of the left breast. Stable benign-appearing bilateral axillary lymph nodes. No other significant abnormalities are identified. There has been no significant change since the prior study. BI/SCRN MAMM (CAD)W/RAMBO BILAT IMPRESSION: Stable bilateral screening mammogram. Yearly follow-up mammogram recommended. (A) ASSESSMENT CATEGORY: BIRADS Category 2: Benign. A letter regarding these results will be sent to the patient by the facility within 30 days. Approximately 10% of breast cancers are not detected by mammography. A normal mammogram should not delay biopsy of a clinically suspicious abnormality. [id number] Electronically Signed: Trevon Soni MD at 13:17 EDT ,
--- NOTE | 2023-10-03 11:11 | BD_ITS ---
STUDY: DUAL ENERGY X-RAY ABSORPTIOMETRY / DXA REASON FOR EXAM: Female, 58 years old. V76.12ScreeningBONE DENSITY REASON FOR EXAM TECHNIQUE: Bone Mineral Density (BMD) measurements of lumbar spine and bilateral hips were obtained. COMPARISON: Comparison is made with prior study November 10, 2020. FINDINGS: Lumbar Spine (L1-L4): g/cm2 (0.891) / T-score (-1.4) / Z-score (0.0) Findings are suggestive of osteopenia with a low fracture risk. Left Femur Total: g/cm2 (0.729) / T-score (-1.7) / Z-score (-0.8) Left Femoral Neck: g/cm2 (0.604) / T-score (-2.2) / Z-score (-0.9) Right Femur Total: g/cm2 (0.835) / T-score (-0.9) / Z-score (0.1) Right Femoral Neck: g/cm2 (0.699) / T-score (-1.4) / Z-score (0.0) The T-Scores on the most recent prior examination were: Lumbar Spine (L1-L4): There has been improvement of bone density since the previous examination. Left Femur Total: which represents a worsening of 9.2%. Right Femur Total: which represents an improvement of 0.8%. BD/Dexa Bone Density Study IMPRESSION: The patient is considered osteopenic as outlined below according to World Macario Organization (WHO) criteria with a high fracture risk. There has been worsening of bone density since the previous examination. Reference Information: The T-score is the number of standard deviations above or below the standard which is normal for young adults at their peak bone mineral density. The World Health Organization (WHO) interprets the T-scores as follows: Above -1 Normal bone density Between -1 and -2.5 Osteopenia Equal to / or below -2.5 Osteoporosis As a practical clinical guideline, osteopenia may be graded as follows: Mild -1 through -1.5 Moderate -1.6 through -2.0 Severe -2.1 through -2.4 The Z-score is the number of standard deviations above or below age-matched controls. A Z-score of less than -1.5 would be considered abnormal. References: 1. NIH Osteoporosis and Related Bone Diseases www osteo.org 2. International Society for Clinical Densitometry www iscd.org 3. National Osteoporosis Foundation www nof.org Electronically Signed: Trevon Soni MD at 13:54 EDT ,
== END 2023-10-03 23:59 | disposition home or self-care (01) ==
LOC: OPBD 10:41
PROVIDERS: PCP Nurse Practitioner Family; Referring Provider Nurse Practitioner Family; Visit Provider Nurse Practitioner Family
DX: Z12.31 Encounter for screening mammogram for malignant neoplasm of breast (principal); Z13.820 Encounter for screening for osteoporosis
CPT/HCPCS: 77063; 77067; 77080

== ENCOUNTER 2023-11-10 09:00 | Outpatient (RCR) | payer OTHER, SELFPAY ==
--- NOTE | 2023-08-01 16:38 | HP.PTEVAL ---
Patient's Visit Information Visit Information Visit Information: BLANCA TOWNSEND is a 58 year old F referred to Physical Therapy by Dr. Chaka Hernandez MD with a diagnosis of L medial meniscal repair 07/27/23. Date of Evaluation: 08/01/23 Physical Therapist: Qasim Pearson, PT, ATC Visit Plan Frequency: 1-2x /Week Duration: 2-4 Months Plan: Table ex's x 6 weeks to focus on NWBing strenthening and ROM ex's. Progress to strengthening, PROM, balance training, and core strengthening at 6 weeks. Subjective Subjective: DOS: 07/27/23. Pt reports she had a medial meniscal repair on her L knee on that date. Pt reports she has been really sore since her DOS. Pt reports she is glad she had the surgery at this time. Pt reports she is still very stiff at this time. Pt reports she has difficulty with sleeping at this time secondary to her brace being uncomfortable, but not due to pain. Pt denies tingling or numbness at this time secondary to pain. Pt reports one step to enter the house, but steps that lead to the basement that she would like to be able to negotiate. 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 1/10 pain at rest, 7/10 pain at worst. Pain L knee: Pain Intensity (Out of 10): 1 Pain Intensity Range: 7 Objective Objective: Neuro: B LE sensation is WNL to light touch. Girth at joint line: R knee 31 cm, L knee 34 cm ROM: R knee 0-145 degrees, L knee 0-74 degrees MMT: R knee 32 #F, 49 #F. L knee not tested secondary to pain Balance/Special Test Scores Lower Extremity Functional Score: 9 Goals Goal 1:: Decrease L knee pain x 50% to aid with ambulation Goal Time Frame: 6-8 Weeks Goal 2:: Increase L knee strength to 90% of R knee to aid with stair negotiation Goal Time Frame: 6-8 Weeks Goal 3:: Increase L knee flex ROM to 130 degrees to aid with return to exercise Goal Time Frame: 6-8 Weeks Goal 4:: I with HEP Goal Time Frame: 6-8 Weeks Rehabilitation Potential Physical Therapy Diagnosis: L knee pain, weakness, and limited ROM secondary to L medial meniscal repair Rehabilitation Potential: Good Anticipated Interventions Patient/Client Instruction: Educate patient on: Condition and Plan of Care For the Purpose of:: To improve self management Therapeutic Exercise to Include: Strength training, Endurance training, Balance training, Flexibilty training, Passive ROM, Active ROM and Dynamic Lumbar Stabilization For the Purpose of:: To decrease pain, To increase ROM and To improve muscle performance and motor function Cryotherapy (ice pack, ice massage): Yes For the Purpose of:: To decrease pain Text: Thank you for the opportunity to evaluate your patient. For Medicare and Medicare HMO plans, please review the plan of care and approve it. It will need to be FAXED BACK to us at [phone] for Medicare purposes. For Medicare only, by signing this I certify the plan of care. Please let me know if there are questions or concerns regarding this plan of care. Physician Signature: Date:
--- NOTE | 2023-09-27 09:43 | HP.PTREVAL_ITS ---
Re-Evaluation Intro: Dr. Chaka Hernandez MD, It has been my pleasure to treat BLANCA TOWNSEND over the last 2 visits for L medial meniscal repair 07/27/23. Please see the progress note below for an update on the physical therapy plan of care! Subjective Subjective: She has been weight bearing for about 2 weeks. She flared it up by doing too much and now she having some issues with swelling. Objective Objective/Function: Gait: antalgic- decreased stance on left lower extremity- poor heel/toe pattern due to lack of ROM ROM: -10-100 degrees with pain and stiffness at end range Strength: Flexion: 11.8 Extn: 13- moderate lag with SLR- quad set visible but poor Girth: Patella: 37 cm 6: Below:31 cm 6 Above: 45.5 Plan Plan Plan: 09/27/23:2-3x 4 weeks focus on restorationism of gait pattern and functional mobility Table ex's x 6 weeks to focus on NWBing strenthening and ROM ex's. Progress to strengthening, PROM, balance training, and core strengthening at 6 weeks. Balance/Gait/Functional tests Balance/Special Test Scores Lower Extremity Functional Score: 9 Goals Goals Goal 1:: Decrease L knee pain x 50% to aid with ambulation Goal Time Frame: 6-8 Weeks Goal Progress: Progressing Goal 2:: Increase L knee strength to 90% of R knee to aid with stair negotiation Goal Time Frame: 6-8 Weeks Goal Progress: Progressing Goal 3:: Increase L knee flex ROM to 130 degrees to aid with return to exercise Goal Time Frame: 6-8 Weeks Goal Progress: Progressing Goal 4:: I with HEP Goal Time Frame: 6-8 Weeks Goal Progress: Progressing Anticipated Interventions Anticipated Interventions Patient/Client Instruction: Educate patient on: Condition and Plan of Care For the Purpose of:: To improve self management Therapeutic Exercise to Include: Strength training, Endurance training, Balance training, Flexibilty training, Passive ROM, Active ROM and Dynamic Lumbar Stabilization For the Purpose of:: To decrease pain, To increase ROM and To improve muscle performance and motor function Cryotherapy (ice pack, ice massage): Yes For the Purpose of:: To decrease pain Re-Evaluation Ending Re-evaluation ending: Please do not hesitate to contact me at [phone] by phone or if you have questions or concerns regarding this new plan of care! Sincerely, FLORI IrizarryT
--- NOTE | 2023-10-11 09:56 | HP.PTREVAL ---
Re-Evaluation Intro: Dr. Chaka Hernandez MD, It has been my pleasure to treat BLANCA TOWNSEND over the last 8 visits for L medial meniscal repair 07/27/23. Please see the progress note below for an update on the physical therapy plan of care! Subjective Subjective: She is much better- she feels that she has turned the corner- each week its getting better. Headed to [facility] tomorrow. She will continue home exercise program and call if she needs us. She feels comfortable with [facility]- will ask if she has questions. Objective Objective/Function: Gait: slightly antalgic ROM: 0-120 degrees Strength: Flexion: 19.5 Extn: 24 Girth: Patella: 35 cm 6: Below:29.5 cm 6 Above: 44 Plan Plan Plan: 10/11/23 Hold until 10/29- if she does not follow up she can be discharged to [facility] 09/27/23:2-3x 4 weeks focus on tenriism of gait pattern and functional mobility Table ex's x 6 weeks to focus on NWBing strenthening and ROM ex's. Progress to strengthening, PROM, balance training, and core strengthening at 6 weeks. Balance/Gait/Functional tests Balance/Special Test Scores Lower Extremity Functional Score: 49 Goals Goals Goal 1:: Decrease L knee pain x 50% to aid with ambulation Goal Time Frame: 6-8 Weeks Goal Progress: Progressing Goal 2:: Increase L knee strength to 90% of R knee to aid with stair negotiation Goal Time Frame: 6-8 Weeks Goal Progress: Progressing Goal 3:: Increase L knee flex ROM to 130 degrees to aid with return to exercise Goal Time Frame: 6-8 Weeks Goal Progress: Progressing Goal 4:: I with HEP Goal Time Frame: 6-8 Weeks Goal Progress: Goal Met Anticipated Interventions Anticipated Interventions Patient/Client Instruction: Educate patient on: Condition and Plan of Care For the Purpose of:: To improve self management Therapeutic Exercise to Include: Strength training, Endurance training, Balance training, Flexibilty training, Passive ROM, Active ROM and Dynamic Lumbar Stabilization For the Purpose of:: To decrease pain, To increase ROM and To improve muscle performance and motor function Cryotherapy (ice pack, ice massage): Yes For the Purpose of:: To decrease pain Re-Evaluation Ending Re-evaluation ending: Please do not hesitate to contact me at [phone] by phone or if you have questions or concerns regarding this new plan of care! Sincerely, FLORI IrizarryT
--- NOTE | 2024-01-02 18:00 | HP.PT.NRP ---
Patient Information Patient Information: BLANCA TOWNSEND was seen in my office for initial evaluation on 08/01/23. The following Plan of Care was established for this patient: POC Established Initial Frequency: 1-2x /Week Initial Duration: 2-4 Months Anticipated Interventions Patient/Client Instruction: Educate patient on: Condition and Plan of Care For the Purpose of:: To improve self management Therapeutic Exercise to Include: Strength training, Endurance training, Balance training, Flexibilty training, Passive ROM, Active ROM and Dynamic Lumbar Stabilization For the Purpose of:: To decrease pain, To increase ROM and To improve muscle performance and motor function Cryotherapy (ice pack, ice massage): Yes For the Purpose of:: To decrease pain Last Seen Last Seen: This patient was last seen in our office . Pertinent comments regarding their Physical therapy will appear below: Patient has not attended PT in over a month and was encouraged to take time off due to increased swelling and flare ups. Follow up with MD OROPEZA. At this point I will be discontinuing this patient from physical therapy. I would be happy to see this patient again in the future if found appropriate by the physician. Thank you! Aparna Liriano, FLORIT Balance/Gait/Functional tests Balance/Special Test Scores Lower Extremity Functional Score: 49
== END 2023-11-10 19:00 | disposition home or self-care (01) ==
LOC: PT 09:00
PROVIDERS: PCP Family Medicine; Referring Provider Orthopaedic Surgery Sports Medicine; Visit Provider Orthopaedic Surgery Sports Medicine
DX: S83.242D Other tear of medial meniscus, current injury, left knee, subsequent encounter (principal)
CPT/HCPCS: 97016; 97110; 97161; 97530

== ENCOUNTER → 2024-01-11 | Outpatient (CLI) | payer OTHER, SELFPAY ==
--- NOTE | 2024-01-11 08:46 | CT_ITS ---
CT LEFT LOWER EXTREMITY WITH 3-D IMAGING CLINICAL INDICATION: Other tear of medial meniscus, current injury, left knee, subsequ TECHNIQUE: Axial CT images of the LEFT lower extremity was performed without IV contrast material. Coronal and sagittal reformats were provided. The protocol utilizes one or more of the following dose reduction techniques: automated exposure control, adjustment of mA and/or kV according to patient size,and/or use of iterative reconstruction technique. RADIATION DOSAGE (If Supplied By Facility): CTDIvol = ( 18.76 ) mGy, DLP = ( 1449.93 ) mGycm COMPARISON: No relevant prior comparison study available FINDINGS: Bones: Imaging of the left hip joint was performed. There is good alignment. No significant abnormality is seen. Imaging of the knee joint was obtained. Mild degree of joint space narrowing. There is evidence of a 2.5 mm osteochondral defect seen along the posterior lateral aspect of the medial tibial plateau. There is a 7.6 mm cyst in the proximal posterior aspect of the medial tibial plateau medially. Imaging of the ankle joint was performed. No significant abnormality is seen. Soft Tissues: The deep soft tissue structures are unremarkable. The superficial soft tissues are unremarkable without evidence of edema, hematoma, or foreign body. CT/Extremity Lower without Contra IMPRESSION: Mild degree of joint space narrowing involving the medial compartment of knee joint with a 2.5 mm osteochondral defect seen along the posterolateral aspect of the medial tibial plateau. 7.6 mm subchondral cyst in the proximal posterior aspect of the medial tibial plateau. Electronically Signed: Trevon Soni MD at 14:45 EDT ,
== END | disposition home or self-care (01) ==
LOC: CT 08:45
PROVIDERS: PCP Nurse Practitioner Family; Referring Provider Specialist; Visit Provider Specialist
DX: S83.242D Other tear of medial meniscus, current injury, left knee, subsequent encounter (principal)
CPT/HCPCS: 73700

== ENCOUNTER 2024-02-12 07:10 | Observation (INO) | payer OTHER, SELFPAY ==
[2024-01-15 09:31] LABS: Magnesium 2.2 mg/dL (1.6-2.6)
[2024-01-17 14:41] LABS: Absolute Lymphocyte Count 2.46 X10^3/uL (0.83-4.51); Basophil# 0.08 X10^3/uL; Eosinophil# 0.06 X10^3/uL; Eosinophils% 0.7 % (0-5); Hematocrit 40.3 % (37-47); Hemoglobin 13.7 g/dL (12.0-15.0); Lymphocyte # 2.46 X10^3/ul (0.83-4.51); Lymphocyte % 29.2 % (19-41); Mean Corpuscular Hgb 33.2 pg (27.0-32.0); Mean Corpuscular Volume 97.6 fL (81-99); Mean Platelet Vol. 9.8 fl (6.2-12.0); Monocyte# 0.78 X10^3/uL; Monocyte% 9.3 % (0-10); NRBC Flagged by Analyzer 0 % (0-5); Neutrophil % 59.3 % (47-70); Platelet Count 428 K/mm3 (150-450); RBC Distribution Width CV 11.9 % (11.6-14.6); RBC Distribution Width SD 42.5 fl (35.1-43.9); Red Blood Count 4.13 M/mm3 (4.2-5.4); White Blood Count 8.4 K/mm3 (4.4-11.0)
[2024-01-17 15:47] LABS: Anion Gap 6 (5-15); BUN 11 mg/dL (7-18); BUN/Creat Ratio 18.8 RATIO (10-20); Calcium,Total 9.9 mg/dL (8.5-10.1); Chloride 105 mmol/L (98-107); Creatinine, Serum 0.58 mg/dL (0.55-1.02); EST Glomerular Filtration Rate 111 mL/min (>60); Est Glom Filt Rate - Afr Amer 135 mL/min (>60); Glucose 91 mg/dL (74-106); Potassium 3.9 mmol/L (3.5-5.1); Sodium Level 138 mmol/L (136-145)
[2024-02-05 12:39] LABS: Albumin, Serum 4.4 g/dL (3.2-5.0)
--- NOTE | 2024-02-07 12:57 | HP.PCM_ITS ---
History and Physical History and Physical Patient Name: Nadine Pierce : 1965From:? RADHA SAEZ PA-C DATE OF PRE-OPERATIVE EXAM: 02/07/2024 DATE OF SURGERY:? 02/12/2024 SCHEDULED PROCEDURE:? Robotic-assisted left total knee arthroplasty HISTORY OF PRESENT ILLNESS: Preoperative history and physical exam was performed on February 07, 2024.? This i s a 59-year-old female who is had ongoing pain for over 8 months.? Patient has had a previous left knee arthroscopy by Dr. Hernandez in June 2023.? She had a medial meniscus root repair.? Patient has continued to have pain persistent since the surgery.? She has been an avid walker in which she has had to stop due to the pain.? The previous injury for this knee occurred in December 2022.? Patient's pain has been intermittent.? Pain is increased with going up and down stairs.? Pain can reach 8/10 with activities.? Patient's pain is located over the medial aspect of the knee.? Patient has had a previous corticosteroid injection which only gave 4 days of relief.? The pain has been affecting her activities of daily living including walking.? She has tripped/stumbled secondary to pain.? Pain is increased with going up and down stairs.? She will occasionally get episodes of locking sensation.? Patient has had recent MRI on January 03, 2024 which did reveal medial compartment failure with omlw-ng-yqsb contact and grade 4 chondromalacia was severe medial femoral stress last year edema and insufficiency fracture.? Patient has attempted previous physical therapy and home exercises.? She has tried rest and ice with minimal relief.? Patient has used gjfd-ojt-jgadgdg ibuprofen and Tylenol for pain control.? After failing conservative measures and discussing all treatment options was Dr. Long, the patient does wish to proceed with a robotic assisted left total knee arthroplasty.? Patient has obtain surgical clearance from the primary care provider Ansley Polanco.? She denies past history of DVT or pulmonary embolism.? No recent chest pain, shortness breath, fevers chills or recent infections. REVIEW OF SYSTEMS: Review Of Systems: Constitutional: Denies change in appetite, fever and weight change. Cardiovasular: Denies chest pain, heart murmur and irregular heartbeat. Respiratory: Denies cough, pneumonia, shortness of breath, tuberculosis and wheezing. Gastrointestinal: Denies constipation, diarrhea, heartburn, nausea, rectal itching, bloody stools and vomiting. Musculoskeletal: Reports trouble walking, but denies leg swelling, pain and weakness. Skin: Denies Raynaud's, history of shingles and tattoo. Neurological: Denies ambulatory dysfunction, dizziness, numbness/tingling and tremor. Psychiatric: Denies anxiety, insomnia and stress. Hematologic/Lymphatic: Denies anemia, bleeding/bruising tendency and past transfusion. Reviewed, no changes. PAST MEDICAL HISTORY: Advance Care Plan: No Advance Directives Effective Date: 12/22/2023 Past Medical History: Medical Problems: Arthritis Cancer - melanoma Kidney Stones, Psoriasis, Covid- 19, Covid-19 Vaccine, PVCS Accidents: None Surgical Hx: Tubal Ligation meniscus root repair - LEFT SIDE Sinus Surgeries - X2 Anesthesia Complications: None Assistive Devices: None Reviewed and updated. 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 Personal Habits:? Cigarette Use: Never Smoked Cigarettes.Smokeless Tobacco: Never Used Smokeless Tobacco.E-Cigarette Use: Never used.Alcohol: Occasionally.Drug Use: Denies Use.Enjoy Exercising: Daily. Reviewed, no changes. VITALS: Ht: 63 Wt: 128lb Wt k.061 BMI: 22.7 BP: 126/82 Pulse: 68 Resp: 15 T: 97.8 T: 36.6C Pain Level: 1 O2SatR: 98 ALLERGIES: Penicillin MEDICATIONS: Multi Vitamin? take one(1) tablet daily., Cptwofa-Zvpwokhlh-Vzvx 334-134-5 mg twice a day PRE-OP EXAM: General appearance:NORMAL? Other: Eyes: Conjunctivae and lids: NORMAL? Pupils: ERR Ears, Nose, Mouth, and Throat: NORMAL? Other: Inspection of lips, teeth and gums: NORMAL?? Other: Neck: Examination of neck: no masses noted. Respiratory: Assessment of respiratory effort: NORMAL?? Other: ? Auscultation of lungs: clear to auscultation no wheezes, rhonchi or rales. Cardiovascular:? Auscultation of heart: regular rate and rhythm, no murmurs, gallops or rubs. PHYSICAL EXAMINATION: On exam of the left knee patient has moderate effusion.? Previous arthroscopy scars are well-healed.? She has varus alignment which is correctable on exam.? Range of motion: Lacks 5 full extension to 130 flexion.? Stable to varus/valgus stress test. IMAGING STUDIES: Recent MRI on January 03, 2024 revealed medial compartment failure with jypr-uo-uggu contact class IV chondral malacia with severe medial femoral condyle stress osteoedema.? There is subchondral insufficiency fracture along the medial joint line with multifocal penetrating erosions.? Previous meniscal posterior root repair.? Class III chondral malacia on the medial facet and class IV chondral malacia in the lateral facet and the patellofemoral compartment. IMPRESSION: 1.? Severe left knee osteoarthritis 2.? History of skin cancer 3.? History kidney stones 4.? Psoriasis PLAN: Dr. Shar Roberts did discuss and review with the patient all treatment options including surgical versus nonsurgical options.? Patient does wish to proceed with the above-stated procedure.? Potential risks, benefits, and complications of the procedure were discussed in detail including but not limited to , infection, nerve and blood vessel damage, persistent pain, numbness, tingling, paresthesias, blood clot, pulmonary embolism, and requirement for possible further surgery.? The patient expressed full understanding and has no further questions for the doctor.? Patient does agree to proceed with the above-stated procedure and has signed the surgery consent form. POST-OP MEDICATION PLAN: Pain Medications: Posterior pain regimen will be initiated by Dr. Shar Roberts in the hospital.? Patient states she has had problems in the past with constipation with narcotics.? She will be placed on a stool softener postoperatively.? Postoperative course of treatment was discussed in great detail today. DVT Prophylaxis:? Aspirin 81 mg twice daily for 4 weeks postoperatively.? Denies past history of DVT or pulmonary embolism This dictation was created using voice recognition software. Phonetic and/or grammatical errors may exist. ___? I have re-examined the patient.? There are no clinical changes since date of exam. ___? See progress notes for changes. ___? Dictated on admission Date: ? Time: Signature:
[2024-02-12] VITALS (16 sets, daily range): BP systolic 95–134; BP diastolic 62–93; PULSE 68–111; RESP 16–18; TEMP 36.2–36.8; O2SAT 21–100; BMI 22.7
[2024-02-12] MEDS: Lactated Ringers 1,000 ML 15 ML IV ×2 (06:20→10:07)
[2024-02-12] MEDS: Celecoxib 200 MG Capsule 400 MG PO (06:21)
[2024-02-12] MEDS: Gabapentin 600 MG Tablet PO (06:22)
[2024-02-12] MEDS: Acetaminophen 500 MG Tablet 1000 MG PO ×3 (06:22→20:37)
[2024-02-12] MEDS: Magnesium 1 GM over 15 mins IV (06:23)
--- NOTE | 2024-02-12 06:47 | PRE.ANES_ITS ---
ASA Classification* ASA Classification ASA Classification: 2 Assessment & Plan Anesthesia* Anesthesia Assessment Anesthesia Assessment: Discussed sedation and/or anesthesia options, risks, benefits, and alternatives with patient/parents/legal guardian/POA. Questions invited. The patient/parents/legal guardian/POA seems to understand and agrees to proceed with anesthesia plan. Reviewed the physical assessment, medical history, allergy history and patient home medications list prior to surgery/procedure/anesthetic and documented any changes. Performed airway and anesthesia risk assessments. Anesthesia Type Anesthesia Type: Spinal (Consented for block) Anesthesia Focused Assessment* Temperature: 97.8 F Pulse Rate: 68 Blood Pressure: 122/84 Respiratory Rate: 16 Pulse Ox: 100 Airway Assessment Mouth opens: >3 cm Mallampati Score: II Focused Labs Anesthesia Preop lab: CBC WBC 8.4 K/mm3 (4.4-11.0) 01/17/24 14:13 RBC 4.13 M/mm3 (4.2-5.4) L 01/17/24 14:13 Hgb 13.7 g/dL (12.0-15.0) 01/17/24 14:13 Hct 40.3 % (37-47) 01/17/24 14:13 Plt Count 428 K/mm3 (150-450) 01/17/24 14:13 CHEMISTRY Potassium 3.9 mmol/L (3.5-5.1) 01/17/24 14:13 Sodium 138 mmol/L (136-145) 01/17/24 14:13 Magnesium 2.2 mg/dL (1.6-2.6) 01/15/24 08:45 Phosphorus 2.8 mg/dL (2.5-4.9) 10/26/20 07:41 BUN 11 mg/dL (7-18) 01/17/24 14:13 Creatinine 0.58 mg/dL (0.55-1.02) 01/17/24 14:13 Glucose 91 mg/dL (74-106) 01/17/24 14:13 TSH 3.10 uIU/mL (0.358-3.74) 08/10/22 09:00 COAG PT 12.6 SECONDS (11.9-14.4) 06/05/13 14:33 Pre-Assessment Diagnosis/Proposed Procedure Planned Operative Procedure(s): (L) ROBOTIC ASSISTED LEFT TOTAL KNEE ARTHROPLASTY, ERAS Anesthesia History 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 When Was Last Pacemaker Check QUESTION #4 FULL TEXT: You/Your Family Experience fever (hyperthermia) with Anesthesia Last Oral Intake Last Oral intake: Last Oral Intake NPO since 05:00 02/12/24 06:09 Meds taken in AM with sips of No 02/12/24 06:09 water? Meds patient instructed to take am of surgery PONV PONV - distilling department supervisor: PONV - distilling department supervisor Female Yes 01/17/24 08:25 HX of Motion Sickness Yes 01/17/24 08:25 HX of N/V After Surgery No 01/17/24 08:25 Non-Smoker Yes 01/17/24 08:25 Duration of Surgery greater Yes 01/17/24 08:25 than 60 minutes Number of Risk Factors 4 01/17/24 08:25 PONV Score Severe Risk 01/17/24 08:25 Height & Weight Height & Weight: Anesthesia: Height & Weight Height 5 ft 3 in 02/12/24 06:09 Weight: 58.3 kg 02/12/24 06:09 Body Mass Index (BMI) 22.7 02/12/24 06:09 Respiratory Assessment Respiratory Assessment - distilling department supervisor: Respiratory Tract Infection Hx - distilling department supervisor Hx Respiratory Tract Infection No 01/17/24 08:25 STOP Sleep Apnea STOP Sleep Apnea - distilling department supervisor: STOP Sleep Apnea - distilling department supervisor Hx Hypertension No 01/17/24 08:25 Hx Sleep Apnea No 01/17/24 08:25 CPAP No 01/17/24 08:25 BIPAP No 01/17/24 08:25 Do you snore loudly (louder No 01/17/24 08:25 than talking or can be heard Do you often feel tired/ No 01/17/24 08:25 fatigued/ sleepy during daytime? Has anyone observed you stop No 01/17/24 08:25 breathing during sleep? STOP Results Negative 01/17/24 08:25 QUESTION #5 FULL TEXT : Do you snore loudly (louder than talking or can be heard through closed doors)? 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 Specify any problems Hx of Preganancy in last 3 N/A 01/17/24 08:25 Months Nurse Filling Out Transfusion NBUCHER 01/17/24 08:25 & Questions: Date: 01/17/24 01/17/24 08:25 Time: 08:26 01/17/24 08:25 Patient unable to answer at this time (ie. confused, unrespo /Reproduction History /Reproductive History - distilling department supervisor: /Reproductive Hx- distilling department supervisor Hx Now Gestational Age (in weeks): EDC: Hx Hx Para Hx Section SAB No 01/17/24 08:25 Active Medications Active Medications: Current Medications Generic Name Dose Route Start Last Admin Trade Name Freq PRN Reason Stop Dose Admin Acetaminophen 1,000 mg 02/12/24 07:30 02/12/24 06:22 Acetaminophen 500 Mg Tablet PO 02/12/24 07:31 1,000 mg X1 ONE Administration Celecoxib 400 mg 02/12/24 07:30 02/12/24 06:21 Celecoxib 200 Mg Capsule PO 02/12/24 07:31 400 mg X1 ONE Administration Sodium Chloride 77.4 ml/ 0 ml 02/12/24 07:30 Ropivacaine 200 mg/ OPERA.SITE 02/12/24 07:31 Epinephrine HCl 0.6 mg/ X1 ONE Ketorolac Tromethamine 30 mg/ Morphine Sulfate 5 mg Dexamethasone Sodium Phosphate 10 mg 02/12/24 07:30 Dexamethasone 10 Mg/Ml Vial IV 02/12/24 07:31 X1 ONE Gabapentin 600 mg 02/12/24 07:30 02/12/24 06:22 Gabapentin 600 Mg Tablet PO 02/12/24 07:31 600 mg X1 ONE Administration Magnesium Sulfate 1 gm/ 102 mls @ 408 mls/hr 02/12/24 07:30 02/12/24 06:23 Dextrose IV 02/12/24 07:44 408 mls/hr X1 ONE Administration Lactated Ringer's 1,000 mls @ 999 mls/hr 02/12/24 07:30 IV 02/12/24 08:30 .Q1H1M NEVIN Tranexamic Acid 1,000 mg/ 110 mls @ 660 mls/hr 02/12/24 07:30 Sodium Chloride IV 02/12/24 07:39 X1 ONE Tranexamic Acid 1,000 mg/ 110 mls @ 660 mls/hr 02/12/24 08:30 Sodium Chloride IV 02/12/24 08:39 X1 ONE Lactated Ringer's 1,000 mls @ 999 mls/hr 02/12/24 08:30 IV 02/12/24 09:30 .Q1H1M NEVIN Cefazolin Sodium 2 gm/ N/A 20 mls @ 400 mls/hr 02/12/24 07:30 IV 02/12/24 07:32 PREOP ONE Lactated Ringer's 1,000 mls @ 125 mls/hr 02/12/24 09:30 IV 02/12/24 17:29 .Q8H NEVIN Lactated Ringer's 1,000 mls @ 15 mls/hr 02/12/24 06:00 02/12/24 06:20 IV 02/17/24 19:19 15 mls/hr .Q48H NEVIN Administration Protocol Insulin Human Lispro 1 - 6 unit 02/12/24 07:30 Insulin Lispro 100 Unit/Ml Insuln.Pen SC 02/12/24 13:30 Q4H PRN PRN BG>/= 180, SEE PROTOCOL Protocol PFSH Medical History Cancer PONV (postoperative nausea and vomiting) Acute medial meniscus tear of left knee TMJ (temporomandibular joint disorder) Post-menopausal Alcohol use Eczema Non-smoker History of stress test History of melanoma Headaches, cluster Home Medications ?Medication ?Instructions ?Recorded ?Last Taken ?Type hydrocortisone 0.25 % topical cream 1 applic topical DAILY PRN PRN 11/23/20 Unknown History eczema rrpfoxa-qlf-ddl O2-O6-ebilybbk 250 2 tab PO DAILY 01/17/24 02/10/24 History mg-40 mg-5 mg-125 unit tablet (Calcium Citrate Plus (pyridoxine)) multivitamin (Daily Multi-Vitamin 1 tab PO DAILY 01/17/24 02/10/24 History tablet) Allergy/AdvReac Type Severity Reaction Status Date / Time latex Allergy Intermediate Rash Verified 02/12/24 06:08 Penicillins Allergy Intermediate HIVES ?? Verified 02/12/24 06:08 Family History Other Colon cancer Surgical History History of lateral meniscus repair of left knee History of ethmoidectomy History of tubal ligation (~1996) Social History Smoking Status: Never smoker alcohol intake: current alcohol intake frequency: holidays/special occasions only substance use type: does not use what type of physical activity do you participate in: walking and bicycling frequency: 5-6 times per week Review of Systems (Anesthesia) ROS Narrative System reviewed and no additional complaints, except as documented.
[2024-02-12 07:30] LABS: Bedside Glucose 116 mg/dL (74-106)
[2024-02-12] MEDS: Cefazolin 2 GM in Syringe IV (07:30)
--- NOTE | 2024-02-12 07:30 | KNEE_PTH ---
PATIENT: BLANCA TOWNSEND LOC: [facility] U#:[id number] AGE/SX: 59/F ROOM: [facility] RE02/12/[address]: Dr. Shar Roberts MD : 1965 BED: 1 DIS: 02/13/2024 SPEC #: [id number] RECD: 02/12/24 11:32 STATUS: TIBURCIO REQ #: [id number] JIMENA: 02/12/24 07:[address]: Shar Roberts DEPT: SURGICAL PATHOLOGY RECD BY: Lacy Bower ENTERED: 02/12/24 13:18 SP TYPE: TOTAL KNEE OTHR DR: MD Dr. Natan Aguirre MD Rachel Edgar, FRAME MAKER-C Tissues: Knee, NOS Procedures: Decalcification bone/plaque Surgery Specimen Level IV HEADER OPERATION: Robotic assisted left total knee arthroplasty PRE-OP DIAGNOSIS: Severe left knee osteoarthritis TISSUE SUBMITTED: Left knee : bone and tissue MICROSCOPIC DIAGNOSIS Bone and soft tissue, left knee, total knee replacement/resection: Pieces of bone with degenerative osteoarthritic changes. Fibroadipose tissue, fibroconnective tissue and reactive synovial tissue. : 02/15/2024 MICROSCOPIC DESCRIPTION Slides are reviewed. GROSS DESCRIPTION Received is one container designated bone and soft tissue left knee. The specimen consists of multiple fragments of singh-yellow bone measuring in aggregate 13.0 x 9.0 x 1.5 cm. Also in the specimen container are multiple fragments of yellow-white soft tissue measuring in aggregate 1.5 x 0.5 x 0.5 cm. A number of bony fragments contain articular surfaces consistent with tibial plateau and femoral condyle and displaying prominent osteophyte formation bone erosion. Uptwister Tender sections are submitted in two cassettes as follows: 1 - soft tissue, 2 - bone after decalcification. / AM. 02/12/2024 TC:5 CPT: 39351, 72631
[2024-02-12] MEDS: TXA 1000mg in NS100 100ml (IVPB at Incision) 660 MG IV (07:40)
[2024-02-12] MEDS: dexAMETHasone 10 MG/ML Vial IV (07:45)
--- NOTE | 2024-02-12 08:31 | OP.PCM_ITS ---
Report of Operation Date of Procedure: 02/12/24 Pre-Operative Diagnosis: Left knee primary osteoarthritis Post-Operative Diagnosis: Left knee primary osteoarthritis Surgery/Procedure Performed:: Left knee minimally invasive robotic assisted total knee replacement Description of Surgical Findings:: Stable knee with good patella tracking Surgeon: Shar Roberts fruit washer: David Bower Type of Anesthesia: Spinal Anesthesiologist: Yonis Webb Special Medications: 2 g Ancef, 1 g TXA at incision, 1 g TXA closure, 10 mg Decadron, joint cocktail (5 mg Duramorph, 30 mL of 0.5% Ropivicaine, 1000 units of epinephrine, 30 mg of Toradol) Specimen's removed: Bony cuts Estimated Blood Loss (mL): 50 Fluids Replaced: 700 Description of Procedure: Implants used: 1. Pamela size 3 triathlon cruciate retaining distal femoral press-fit component 2. Pamela size 2 press-fit tritanium tibial baseplate 3. Mcneil X3 9 mm polyethylene 4. Mcneil X3 29 mm asymmetric patella Brief history operative indications: 59-year-old F with history of left knee osteoarthritis with radiographic findings with loss of joint space, osteophyte formation and subchondral sclerosis. Failed conservative measures as mentioned in the H&P. Discussion of total knee arthroplasty as well as risk and benefits were discussed the patient including but not limited to blood loss, DVTs, PEs, neurovascular damage, general risk of anesthesia including loss of life, and stiffness or instability were discussed with patient. Patient demonstrated understanding and was able to sign informed consent. Procedure: On the date of procedure patient's left lower extremity was marked in the preoperative area. The patient was then taken back to the operating room where the patient was placed on the table in the supine position. All bony prominences were identified a well-padded. Anesthesia assumed control of the C-spine and airway and remained controlled throughout the remainder of the procedure. A tourniquet was placed on the left upper thigh and the leg was prepped in a sterile fashion. The surgeon then scrubbed at this time .Upon reentering the room left lower extremity was draped in a standard orthopedic fashion. A timeout was then called and everyone agreed upon the side, the site, the procedure to be performed, patient's identity and antibiotics given. Esmarch bandage was used to exsanguinate the extremity and the tourniquet was placed up to 250 mmHg with the knee in flexion. A midline skin incision was made and sharp dissection was taken down through skin subcutaneous tissue and fat. The standard medial parapatellar incision was made and the patella was subluxed laterally. An Appropriate deep MCL release was done and the fat pad was resected. Our attention was then directed to the patella. The patella was everted and a flat resection was made. The knee was then flexed up in 2 femoral pins were placed inside the incision and 2 tibial pins were placed outside the incision in the medial tibia bicortica lly. Once this was completed the 2 checkpoints in the femur and tibia were placed. Knee was then flexed up and the bony landmarks were registered. Once this was completed knee was taken through range of motion and manually stressed allowing us to a plan for an appropriate tibial cut. The robotic arm was brought into the field sterilely and checkpoint and saw were registered. Based on the patient's deformity the tibial cut was made in 2 degrees of varus. At this time the tensioner was then placed in the joint and ligament tension was checked at 90 degrees and full extension. Based on the patient's ligamentous tension appropriate adjustments were made to the operative plan and ligament releases were done. Once we were happy with our operative plan with balanced flexion and extension gaps our attention was directed to the femur. The robot was brought into the field sterilely and registered. Posterior condylar cuts, anterior chamfer cuts and anterior cuts were appropriately made for a size 3 femur. When these were completed the saws were switched out in the distal femoral and posterior chamfer cuts were made. Protecting the soft tissue throughout this time. A size 2 tibial base plate was selected. the knee was flexed to 90 degrees and the soft tissues and posterior osteophytes were removed from the joint. 40 cc of the periarticular injection was injected into the posterior medial corner of the joint. The appropriate trials were then placed on the femur and tibia. A trial polyethylene was trialed to ensure proper balancing and stability of the knee. The appropriate tibial internal rotation was then marked with a bovie. Our attention was then directed to the patella. The lug holes were drilled and the patella trial was placed. Patellar tracking was checked and deemed appropriate. Once we were happy lug holes were drilled for the femur and trial components were removed. the tibia was subluxed and pinned into place and the keel was punched and drilled appropriately. Final components were verified and opened, and cement was mixed in a vacuum. GetGlue Simplex cement was used. The wound was copiously irrigated with normal saline. When the cement was ready the components were impacted into place starting with the tibia, femur and finally cementing the patella. The trial poly component was placed and the knee was placed in full extension. The tracking, alignment and balance were verified and a size 9MM polyethylene component was placed. Once the final components were placed a 3-minute dilute Betadine lavage was performed followed by an Irrisept lavage was performed and the wound was copiously irrigated with normal saline solution and the periarticular injection was given. The wound was closed in a layer dutton fashion using #1 vicryl interrupted sutures for the arthrotomy, 2-0 interrupted Vicryl suture for the subcuticular layer and preeti for final skin closure. A sterile compressive dressing was then placed. The patient was then awakened from anesthesia, transferred to the reastanollee and transferred to the PACU for recovery. Post op plan DVT ppx: ASA 81mg BID, thigh high compression stockings Follow up: in office in 2 weeks for wound check PT: to start POD #0 at hospital, outpatient PT should be arranged. My physician critical care physician assistant was a vital part of this case. He was important in appropriate retraction during the case, and protection of soft tissues during bony cuts. His intimate knowledge of the case and my steps aided in safe and expedient completion of the procedure as well as appropriate position of the leg during the case. He was also vital in assisting with closure under my direct supervision. Due to the complexity of this case robotic arm was used to assist in the surgery to improve accuracy and clinical outcomes. Complications No intraoperative complications Admit VTE Documentation VTE Present on Admission: No VTE Mechan Device Prophylaxis: SCD's and Thigh High NEYDA Hose VTE Pharm Prophylaxis ordered?: Yes
[2024-02-12] MEDS: JPS (Morphine 10mg/ml) OPERA.SITE (08:36)
[2024-02-12] MEDS: TXA 1000mg in NS100 100ml (IVPB at Closure) 660 MG IV (08:42)
--- NOTE | 2024-02-12 09:20 | RAD_ITS ---
STUDY: X-RAY - LEFT KNEE REASON FOR EXAM: Female, 59 years old. Post op - AP and lateral xray of operative knee in PACU. TECHNIQUE: 2 views of the left knee. COMPARISON: None. FINDINGS: There are new postoperative changes related to left total knee arthroplasty with patellar resurfacing. There is gas in the patellofemoral joint recess and anterior soft tissues, compatible with recent surgery. The orthopedic hardware components are intact. There is no periprosthetic fracture. Normal proximal tibiofibular articulation. RAD/Knee 1 or 2 Views IMPRESSION: New postoperative changes related to left total knee arthroplasty. Electronically Signed: Neal Galvez MD at 9:50 EDT ,
--- NOTE | 2024-02-12 10:01 | PCM.POSTANE2 ---
Anesthesia Postop Eval I Sum Anesthesia Postop Eval I Summary Anesthesia Postop Eval I Summary: Anesthesia Postop Eval I: Assessment Summary Airway patent Spontaneous unlabored respirations Mental status nausea Vomiting Anesthesia Postop Eval I: Fluid Summary Crystalloid volume administer (ml) Colloids volume administered ( ml) Blood Product volume administered (ml) Total IV fluid infused Anesthesia Postop Eval I: Summary Notes Anesthesia Complication Anesthesia Complication Comment: Post-operative progress note Anesthesia: Postop Eval II Evaluation Mental status: Awake Pain Level: 2 nausea: No Vomiting: No
--- NOTE | 2024-02-12 10:43 | PCM.POST.ANE ---
Anesthesia: Postop Eval I Current Vital Signs Temperature: 97.1 F Pulse Rate: 106 Blood Pressure: 95/62 Respiratory Rate: 16 Pulse Ox: 98 Oxygen Delivery Method: Room Air Assessment Airway patent: Yes Spontaneous unlabored respirations: Yes Mental status: Awake and Calm nausea: No Vomiting: No Anesthesia Complication: No Fluid Hydration Crystalloid volume administer (ml): 700 Total IV fluid infused: 700 Progress Note Anesthesia document: Postop Eval 1 completed: Yes
[2024-02-12] MEDS: Famotidine 20 MG Tablet PO (11:07)
[2024-02-12] MEDS: Aspirin 81 MG TAB.CHEW PO ×2 (11:07→20:37)
[2024-02-12] MEDS: Senna/Docusate Sodium 1 Tablet 2 TABLET PO ×2 (11:08→20:38)
[2024-02-12] MEDS: Lactated Ringers 1,000 ML 125 ML IV (11:30)
--- NOTE | 2024-02-12 11:41 | PCM.PN.HOSP ---
Reason for Visit Reason for Visit: Diagnoses Encounter for other preprocedural examination (02/12/24) Subjective Subjective Patient is a 59-year-old female who underwent left knee minimally invasive robotic assisted total knee replacement on 02/12/[address] Roberts. Hospital service was consulted to assist with management of patient medical comorbidities Objective Data Objective Data Vital Signs: Vital Signs Temp Pulse Resp BP Pulse Ox O2 Del Method O2 Flow Rate 97.4 F L 95 16 120/76 100 Nasal Cannula 4 02/12/24 11:27 02/12/24 11:27 02/12/24 11:27 02/12/24 11:27 02/12/24 11:27 02/12/24 11:27 02/12/24 11:27 FiO2 36 02/12/24 09:25 Oxygen Flow Rate (L/min) 4 Oxygen Delivery Method Nasal Cannula Weight: 58.3 kg Body Mass Index (BMI) 22.7 Intake & Output: Intake and Output for Last 24 Hours 02/10/24 02/11/24 02/12/24 23:59 23:59 23:59 Intake Total 1342 / 1342 Balance 1342 / 1342 Lab / Micro Data 01/17/24 14:13 01/17/24 14:13 Labs: Laboratory Results - last 24 hr 02/12/24 06:16: POC Glucose 116 H Micro: Microbiology 01/17/24 14:59 Swab (Method) Nasal Screen MRSA/MSSA - Final Radiography Diagnostic Testing: Radiology Impression Knee X-Ray 02/12/24 09:20 IMPRESSION: New postoperative changes related to left total knee arthroplasty. Electronically Signed: Neal Galvez MD at 9:50 EDT , Physical Exam Narrative GENERAL: cooperative HEENT: Atraumatic; normocephalic EYES; Anicteric, Normal Conjunctiva NECK; supple, normal thyroid, RESPIRATORY: Diminished to auscultation CARDIOVASCULAR: Regular S1 S2, GI: soft, normoactive bowel sounds, : No Renal angle tenderness; EXTREMITIES: No edema, no clubbing, MUSCULOSKELETAL: Left knee in surgical dressing NEURO: Awake; no lateralizing signs. SKIN: No Rash PSYCH; Flat affect Assessment & Plan Assessment/Plan (1) History of arthroplasty of left knee: PLAN: Plan Patient is a 59-year-old female who underwent left knee minimally invasive robotic assisted total knee replacement on 02/12/[address] Roberts. Hospital service was consulted to assist with management of patient medical comorbidities 1. Left knee primary osteoarthritis ? Status post left knee minimally invasive robotic assisted total knee replacement on 02/12/[address] Roberts. Patient postoperative orders regarding pain management PT OT as well as DVT prophylaxis deferred to primary service 2. DVT prophylaxis ? Defer to primary Charges/Coding Visit Charges Inpatient E&M: 95944 Init Hosp L1
--- NOTE | 2024-02-12 14:20 | CASEMGMT ---
Addendum entered by Kate Pace 02/12/24 14:50: Pt asked to complete LW/DPOA paperwork, updated SW on request. Original Note: CASEY GONZALEZ Assessment: Face to Face with pt for initial transition planning/care coordination assessment. CASEY GONZALEZ introduced self and role at [facility], pt voices understanding and consents to assessment. Pt is A&O x4 and answers all questions appropriately at this time. Pt sitting up in chair in no distress with at bedside. Care providers, pharmacy, and demographics verified/updated. Admitting Dx: L TKR Strata Score: NA PCP:Collin Specialists:layla Roberts; Maria Eugenia Rain derm; Evangelista, [employer]; Jong, colorectal surgeon Preferred Pharmacy: [facility] Retail Insurance: [employer] Prescription Benefit:pt unsure LNOK: Osvaldo Pierce, Living Arrangements: Pt lives with and adult dtr in a two story home with 1 step to enter. Pt reports prior to surgery she was I in ADLs and denies concerns at home. Transportation: Pt drives self and denies concerns with transportation. Pt will transport pt until she can drive again. DME:david murray, [facility] HHC/SNF: Pt denies hx of Pt states no concerns with going home at time of dc. Pt has outpt therapy set up at [facility] on . Pt states no further concerns/needs. CM to follow. Advised pt to ask CM if any further question/concerns/needs arise, voices understanding. Pt Goal: Home with outpt therapy Plan: Home with outpt therapy Jose PEÑA CM
--- NOTE | 2024-02-12 16:19 | CASEMGMT ---
Social Work- SW completed directives with pt naming Osvaldo, spouse, as primary agent and daughter, Aleja, as alternate agent. SW provided pt with original as well as two copies for agents. RADHA placed a copy on pt chart. SHARAD Royal
[2024-02-12] MEDS: Cefazolin 1 GM/50 ML BAG IV ×2 (16:43→23:48)
[2024-02-12] MEDS: oxyCODONE 5 MG Tablet PO (20:34)
[2024-02-13] MEDS: MELATONIN 10 MG TABLET PO (00:32)
[2024-02-13] MEDS: Ketorolac 15 MG/ML Vial IV ×2 (00:35→05:44)
[2024-02-13] MEDS: 0.9% Saline Lock 10 ML Syringe IV (00:36)
[2024-02-13 02:24] VITALS: BP 128/62; PULSE 64; RESP 18; TEMP 36.6; O2SAT 98
[2024-02-13 05:21] VITALS: BP 132/84; PULSE 74; RESP 16; TEMP 36.6; O2SAT 100
[2024-02-13] MEDS: Acetaminophen 500 MG Tablet 1000 MG PO (05:25)
[2024-02-13] MEDS: oxyCODONE 5 MG Tablet PO (05:26)
[2024-02-13 06:51] LABS: Hemoglobin 11.2 g/dL (12.0-15.0); Mean Corp Hgb Conc 33.9 g/dL (32-36); Mean Corpuscular Hgb 33.7 pg (27.0-32.0); Mean Corpuscular Volume 99.4 fL (81-99); Mean Platelet Vol. 10.2 fl (6.2-12.0); Platelet Count 302 K/mm3 (150-450); RBC Distribution Width CV 11.9 % (11.6-14.6); RBC Distribution Width SD 43.6 fl (35.1-43.9); Red Blood Count 3.32 M/mm3 (4.2-5.4); White Blood Count 14.2 K/mm3 (4.4-11.0)
[2024-02-13 07:11] LABS: Anion Gap 7 (5-15); BUN 10 mg/dL (7-18); BUN/Creat Ratio 16.9 RATIO (10-20); Calcium,Total 8.9 mg/dL (8.5-10.1); Chloride 113 mmol/L (98-107); Creatinine, Serum 0.59 mg/dL (0.55-1.02); EST Glomerular Filtration Rate 110 mL/min (>60); Est Glom Filt Rate - Afr Amer 133 mL/min (>60); Glucose 117 mg/dL (74-106); Potassium 3.8 mmol/L (3.5-5.1); Sodium Level 141 mmol/L (136-145)
[2024-02-13 07:17] VITALS: BP 124/75; PULSE 72; RESP 16; TEMP 36.6; O2SAT 97
--- NOTE | 2024-02-13 07:33 | PCM.PN.HOSP ---
Reason for Visit Reason for Visit: Diagnoses Encounter for other preprocedural examination (02/12/24) Presence of left artificial knee joint (02/12/24) Subjective Subjective Patient seen had a relatively uneventful night. Plan is for patient to be discharged home today by orthopedics Objective Data Objective Data Vital Signs: Vital Signs Temp Pulse Resp BP Pulse Ox O2 Del Method O2 Flow Rate 97.9 F 72 16 124/75 H 97 Room Air 4 02/13/24 07:17 02/13/24 07:17 02/13/24 07:17 02/13/24 07:17 02/13/24 07:17 02/13/24 07:17 02/12/24 11:27 FiO2 36 02/12/24 09:25 Oxygen Flow Rate (L/min) 4 Oxygen Delivery Method Room Air Weight: 58.3 kg Body Mass Index (BMI) 22.7 Intake & Output: Intake and Output for Last 24 Hours 02/11/24 02/12/24 02/13/24 23:59 23:59 23:59 Intake Total 3442 / 3842 450 / 450 Balance 3442 / 3842 450 / 450 Lab / Micro Data 02/13/24 06:23 02/13/24 06:23 Labs: Laboratory Results - last 24 hr 02/13/24 06:23: WBC 14.2 H, RBC 3.32 L, Hgb 11.2 L, Hct 33.0 L, MCV 99.4 H, MCH 33.7 H, MCHC 33.9, RDW Std Deviation 43.6, RDW Coeff of Subhash 11.9, Plt Count 302, MPV 10.2, Sodium 141, Potassium 3.8, Chloride 113 H, Carbon Dioxide 21.0, Anion Gap 7, BUN 10, Creatinine 0.59, Estim Creat Clear Calc 79.20, Est GFR (MDRD) Af Amer 133, Est GFR (MDRD) Non-Af 110, BUN/Creatinine Ratio 16.9, Glucose 117 H, Calcium 8.9 Micro: Microbiology 01/17/24 14:59 Swab (Method) Nasal Screen MRSA/MSSA - Final Radiography Diagnostic Testing: Radiology Impression Knee X-Ray 02/12/24 09:20 IMPRESSION: New postoperative changes related to left total knee arthroplasty. Electronically Signed: Neal Galvez MD at 9:50 EDT , Physical Exam Narrative GENERAL: cooperative HEENT: Atraumatic; normocephalic EYES; Anicteric, Normal Conjunctiva NECK; supple, normal thyroid, RESPIRATORY: Diminished to auscultation CARDIOVASCULAR: Regular S1 S2, GI: soft, normoactive bowel sounds, : No Renal angle tenderness; EXTREMITIES: No edema, no clubbing, MUSCULOSKELETAL: Left knee in surgical dressing NEURO: Awake; no lateralizing signs. SKIN: No Rash PSYCH; Flat affect Assessment & Plan Assessment/Plan (1) History of arthroplasty of left knee: (2) Status post total left knee replacement: PLAN: Plan Patient is a 59-year-old female who underwent left knee minimally invasive robotic assisted total knee replacement on 02/12/[address] Roberts. Hospital service was consulted to assist with management of patient medical comorbidities 1. Left knee primary osteoarthritis ? Status post left knee minimally invasive robotic assisted total knee replacement on 02/12/[address] Roberts. Patient postoperative orders regarding pain management PT OT as well as DVT prophylaxis deferred to primary service 2. DVT prophylaxis ? Defer to primary Charges/Coding Visit Charges Inpatient E&M: 36201 Init Hosp L1
[2024-02-13] MEDS: Multivitamins,Therapeutic Tablet 1 TABLET PO (07:41)
--- NOTE | 2024-02-13 08:27 | PN.ORTHO_ITS ---
Subjective Subjective The patient was sitting in bedside chair upon examination. Patient denies any chest pain, shortness of breath, dizziness, lightheadedness, nausea or vomiting, or calf pain. Pain is controlled on medications. No adverse overnight events. Patient overall is doing well this morning. Patient did very well with therapy yesterday. However the block has worn off and she has had some more pain today. There is some drainage over the dressing. Objective Data Objective Data Vital Signs: Vital Signs Temp Pulse Resp BP Pulse Ox O2 Del Method O2 Flow Rate 97.9 F 72 16 124/75 H 97 Room Air 4 02/13/24 07:17 02/13/24 07:17 02/13/24 07:17 02/13/24 07:17 02/13/24 07:17 02/13/24 07:17 02/12/24 11:27 FiO2 36 02/12/24 09:25 Oxygen Flow Rate (L/min) 4 Oxygen Delivery Method Room Air Weight: 58.3 kg Body Mass Index (BMI) 22.7 Intake & Output: Intake and Output for Last 24 Hours 02/11/24 02/12/24 02/13/24 23:59 23:59 23:59 Intake Total 3442 / 3842 450 / 450 Balance 3442 / 3842 450 / 450 Lab / Micro Data 02/13/24 06:23 02/13/24 06:23 Labs: Laboratory Results - last 24 hr 02/13/24 06:23: WBC 14.2 H, RBC 3.32 L, Hgb 11.2 L, Hct 33.0 L, MCV 99.4 H, MCH 33.7 H, MCHC 33.9, RDW Std Deviation 43.6, RDW Coeff of Subhash 11.9, Plt Count 302, MPV 10.2, Sodium 141, Potassium 3.8, Chloride 113 H, Carbon Dioxide 21.0, Anion Gap 7, BUN 10, Creatinine 0.59, Estim Creat Clear Calc 79.20, Est GFR (MDRD) Af Amer 133, Est GFR (MDRD) Non-Af 110, BUN/Creatinine Ratio 16.9, Glucose 117 H, Calcium 8.9 Micro: Microbiology 01/17/24 14:59 Swab (Method) Nasal Screen MRSA/MSSA - Final Radiography Diagnostic Testing: Radiology Impression Knee X-Ray 02/12/24 09:20 IMPRESSION: New postoperative changes related to left total knee arthroplasty. Electronically Signed: Neal Galvez MD at 9:50 EDT , Physical Exam Narrative Vital signs stable and afebrile. Patient is able to plantarflex and dorsiflex actively. Sensation is intact to light touch to saphenous, sural, superficial and deep peroneal, and tibial distribution. Patient has drainage on the main Mepilex over the distal one third contacting to borders. There is also drainage at the distal pin site. Case was discussed with the nursing staff Negative Homans bilaterally, negative signs and symptoms of DVT. Const alert, oriented x3 and no apparent distress Assessment & Plan Assessment/Plan (1) Status post total left knee replacement: PLAN: 1. S/P robotic assisted left total knee arthroplasty POD #1 2. Continue Pain Medications: Tylenol, meloxicam, oxycodone. Do not take any other nonsteroidal anti-inflammatories while using meloxicam/Mobic. 3. DVT Prophylaxis: Take 81 mg aspirin twice daily for 4 weeks postoperatively for DVT prophylaxis. Patient denies past history of DVT or pulmonary embolism. 4. PT/OT: Weightbearing as tolerated with walker 5. H & H: 11.2/33.0, asymptomatic. Labs have been reviewed and stable. No further need for treatment 6. Reactive leukocytosis: 14.2, Afebrile. Patient did receive Decadron intraoperatively. No clinical signs of infection. 7. Postoperative drainage: Patient was up walking over 440 feet yesterday and had some drainage postoperatively. It appears to be stable today. Plan will be for changing the Mepilex dressing and distal pin site dressing prior to discharge. Case was discussed with nursing. If there are any other complications with the drainage nursing will contact our service. Otherwise we will go home with new dressing. 7. Encouraged Incentive Spirometry 8. Patient is aware of postoperative constipation that can occur from 1-3 days postoperatively. Will continue with senna 2 tablets twice daily until first bowel movement. Patient was advised if not having a bowel movement after day 3 she is to contact orthopedics so appropriate change can be made. Patient voiced understanding. 9. Continue postoperative medical treatment per medicine 10. Disposition: Plan will be for discharge home today as long as patient remains medically stable, tolerates therapy, and pain is adequately controlled. She would like her prescriptions E scribed to [facility] pharmacy. She has outpatient physical therapy established. Upon discharge patient will contact our office with any concerns or questions. She will follow-up per postoperative instructions. I have reviewed the [place] Automated Rx Reporting System (OARRS) report for this patient for refill pattern and other prescriber involvement as part of the appropriate surveillance for the provision of acute and chronic controlled medications. The report was requested and reviewed on the date of this entry and was considered in the prescribing process. This dictation was created using voice recognition software. Phonetic and/or grammatical errors may exist.
--- NOTE | 2024-02-13 08:38 | PCM.DC ---
Discharge Instructions Diet Discharge Diet: No restrictions Activity Discharge Activity: May Not Drive (Must be able to walk 100 feet with use of a cane and off all narcotics prior to driving) May shower in (days): 1 (Please turn dressing away from water. Okay to get wet as long as dressing is intact to skin.) Ice area for (Minutes): 20 (Every 1-2 hours while awake. Please place barrier between the skin and ice pack.) Weight Bearing Status: Weight bearing as tolerated Keep extremity elevated above heart level: Operative Extremity Dressing / Incision Call your doctor if your incision/area has: Continuous Slow Oozing, Sudden Increased Bleeding, Increased Pain/ Swelling, Increased Redness and Foul Smelling Discharge Call your doctor if you observe: Fever of 101 or Higher, Coldness, Increased Pain, Numbness or Tingling, Change in Color, Shortness of breath, Chest pain, Calf discomfort and Uncontrolled pain Remove Dressing in: 4 days (Okay to remove dressing on February 17, 2024) Additional Dressing/Incision Instructions:: Follow [facility] Post-op Instructions. Once postoperative dressing has been removed only use gentle soap and water over the incision. Do not use any ointments, Neosporin, salves, alcohol pads over the incision for 6 weeks postoperatively. Do not submerge underwater for 6 weeks postoperatively. Continue with NEYDA hose/elastic stockings for 2 weeks postoperatively. May remove at nighttime but needs to be placed back on the leg during the day. Do NOT use alcohol with narcotic pain medication. Do NOT make important decisions while taking narcotic medication. If you have problems with taking your medication (rash, itching, nausea, etc.) call the office at once. Follow Up Care Test Results: Test results from this visit will be discussed in further detail at your follow-up appointment, if applicable. Discharge Plan Admission Admit Date/Time: 02/12/24 07:10 Attending Provider: Shar Roberts Primary Care Provider: Ansley Polanco Consulting Providers: Yonis Webb; Natan Sandhu Discharge Orders/Prescriptions Prescriptions: New acetaminophen 500 mg Tablet 1,000 mg PO Q8 Qty: 0 0RF Rx Instructions: Do not take more than 3000 mg Tylenol in a 24-hour period. aspirin [Adult Aspirin Regimen] 81 mg tablet,delayed release (DR/EC) 81 mg PO BID 30 Days Qty: 60 0RF Rx Instructions: Take 81 mg aspirin twice daily for 4 weeks postoperatively for DVT prophylaxis. meloxicam 7.5 mg Tablet 7.5 mg PO BID 30 Days Qty: 60 0RF Rx Instructions: Do not take any other nonsteroidal anti-inflammatories while using meloxicam/Mobic. famotidine 20 mg Tablet 20 mg PO DAILY 30 Days Qty: 30 0RF oxycodone 5 mg Tablet 5 - 10 mg PO Q4H PRN PRN (Reason: Pain Score 4-10) 7 Days Qty: 42 0RF sennosides-docusate sodium [Stimulant Laxative Plus] 8.6-50 mg Tablet 2 tab PO BID 3 Days Qty: 12 0RF Rx Instructions: Take until first bowel movement, then as needed Continued hydrocortisone 0.25 % Cream 1 applic TOPICAL DAILY PRN PRN (Reason: eczema) multivitamin [Daily Multi-Vitamin] Tablet 1 tab PO DAILY Calcium Citrate Plus (Vit B6) 812-83-6-125 jb-nb-[id number]-unit tablet 2 tab PO DAILY Referrals / Follow Up: Physical,Therapy [Other] - 02/15/24 10:30 am Ansley Polanco NP-C [Primary Care Provider] - Viri Armendariz PA [Med Staff - Adv Practice Prof] - 02/27/24 8:30 am Disposition Disposition (needs filled in before D/C Order can be placed): Home, Self Care
[2024-02-13] MEDS: Aspirin 81 MG TAB.CHEW PO (09:21)
[2024-02-13] MEDS: Famotidine 20 MG Tablet PO (09:22)
[2024-02-13] MEDS: Senna/Docusate Sodium 1 Tablet 2 TABLET PO (09:22)
[2024-02-13] MEDS: Ensure Surgery 237 ML LIQUID PO (09:32)
[2024-02-13] MEDS: FLU VACC 2024-25(6MOS UP)/PF 45 MCG/0.5 ML SYRINGE IM (09:33)
--- NOTE | 2024-02-13 10:18 | PHA.DC_ITS ---
Pharmacy [facility] Service has performed discharge medication reconciliation and counseling for this patient. 1. ACETAMINOPHEN 1000MG PO Q8 2. ASPIRIN 81MG PO BIDCM X 4 WEEKS 3. FAMOTIDINE 20MG PO DAILY 4. MELOXICAM 7.5MG PO BID 5. OXYCODONE 5-10MG PO Q4H PRN PAIN 6. SENNA/DOCUSATE 2T PO BID UNTIL FIRST BOWEL MOVEMENT, THEN PRN The patient's discharge medication list was reviewed for discrepancies and discrepancies were resolved. The patient was counseled on the following discharge medications and changes in medications for homegoing were reviewed. The Reason for Use, instructions for use, and potential side effects were reviewed for all new medications. The patient's questions regarding all of their medications were answered. The patient was able to verbally demonstrate an understanding of their discharge medications. Medications at Discharge Home Medications hydrocortisone 0.25 % topical cream 1 applic topical DAILY PRN PRN eczema 11/23/20 [id number] 250 mg-40 mg-5 mg-125 unit tablet (Calcium Citrate Plus (pyridoxine)) 2 tab PO DAILY 01/17/24 multivitamin (Daily Multi-Vitamin tablet) 1 tab PO DAILY 01/17/24 acetaminophen 500 mg tablet 1,000 mg (2 x 500 mg) PO Q8 #0 tabs 02/13/24 aspirin 81 mg tablet,delayed release (Adult Aspirin Regimen) 81 mg PO BID 30 days #60 tabs 02/13/24 famotidine 20 mg tablet 20 mg PO DAILY 30 days #30 tabs 02/13/24 meloxicam 7.5 mg tablet 7.5 mg PO BID 30 days #60 tabs 02/13/24 oxycodone 5 mg tablet 5 - 10 mg (1 - 2 x 5 mg) PO Q4H PRN PRN Pain Score 4-10 7 days #42 tabs 02/13/24 sennosides 8.6 mg-docusate sodium 50 mg tablet (Stimulant Laxative Plus) 2 tab PO BID 3 days #12 tabs 24
--- NOTE | 2024-02-13 11:27 | CASEMGMT ---
Social Work- SW completed directives with pt. Directives on chart naming Osvaldo, spouse, as primary agent. SHARAD Royal
== END 2024-02-13 11:50 | disposition home or self-care (01) ==
LOC: SDC 08:08 → MS3 08:08
PROVIDERS: Anesthesiology; Admitting Provider Specialist; PCP Nurse Practitioner Family; Referring Provider Specialist; Visit Provider Specialist
PROC: 0SRD0JZ Replacement of Left Knee Joint with Synthetic Substitute, Open Approach (ICD-10-PCS; CPT 27447; principal; 2024-02-12 07:00)
DX: M17.12 Unilateral primary osteoarthritis, left knee (principal); L40.9 Psoriasis, unspecified; Z23 Encounter for immunization
CPT/HCPCS: 27447; S2900; 01402; 64448; 36415; 73560; 80048; 82040; 82962; 83735; 85025; 85027; 87081; 88305; 88311; 90656; 93005; 94668; 96361; 96365; 96366; 96375; 96376; 97162; 97166; 97530; 97535; 99221; 99252; C1776; J7120; A4216; G0378; G0463; J3475

== ENCOUNTER → 2024-10-04 | Outpatient (CLI) | payer OTHER, SELFPAY ==
--- NOTE | 2024-10-04 07:01 | BI_ITS ---
EXAM: SCRN MAMM (CAD)W/RAMBO BILAT DATE: 10/04/2024 CLINICAL HISTORY: F, Age 59 y/o , SCREENING History of prior left ultrasound-guided breast biopsy. BREAST CANCER RISK ASSESSMENT: Not assessed TECHNIQUE: Bilateral screening digital breast tomosynthesis with 2D and 3D images. Computer aided detection. COMPARISON: Prior exam(s) dated October 03, 2023.. FINDINGS: TISSUE DENSITY: The breast tissue is heterogenously dense, which may obscure small masses. Bilateral Breast Mammographic Findings: No significant masses, calcifications or other abnormalities are identified. Stable 5.3 mm well-defined nodule in the upper anterior aspect of the left breast. BI/SCRN MAMM (CAD)W/RAMBO BILAT IMPRESSION: OVERALL FINAL ASSESSMENT: BIRADS 2 BENIGN FINDING RECOMMENDATION: Routine annual follow-up in 1 Year A letter with findings and recommendations will be mailed to the patient. Reading Location: [place] [id number]
--- OUTSIDE RECORDS SUMMARY | 2024-10-04 07:01 | XMS RPT_ITS | CCD ---
Author Organization [facility] CliniSyde Care Team Providers Care Drawing In Hand Name Role Phone TRACIEDARRELLNGA JADA Mirta (CERTIFIED MEDICAL RECORDS CODER) Unavailable Unavai LENY Lira Unavailable Unavailable DO Jen Ortiz Primary Care Provider DO Jen Ortiz Referring Provider Dr. Darien Contreras Attending Provider Dr. William Jackson Attending Provider [phone] MD Chaka Hernandez Attending Provider [phone] MD Chaka Hernandez Referring Provider [phone] MD Chaka Hernandez Other Provider Unavailable Primary Care Provider Unavailabl e CHELSEA KENT Referring Unavailable CHELSEA KENT Attending Unavailable HARLAN MELCHOR MD Attending Unavailable SOPHIE SHARE DAIRY FARMER, [place] Primary Care Unavailable SOPHIE SHARE DAIRY FARMER, [place] Primary Care Physician [phone] Sophie, Belem Primary Care Unavailable Alejandra, Shar Attending Unavailable Alejandra, Shar Referring Unavailable Sophie, Belem Attending Unavailable Sophie, Belem Referring Unavailable Sophie, Lyons Primary Care Unavailable Chaka Hernandez Attending Unavailable Sophie, Belem Primary Care Unavailable Sophie, Belem Referring Unavailable Alejandra, Shar Admitting Unavailable Natan Sandhu Attending Unavailable Yonis Webb Consulting Unavailable Alejandra, Shar Referring Unavailable Sophie, Belem Primary Care Unavailable Natan Sandhu Consulting Unavailable Alejandra, Shar Consulting Unavailable Chaka Hernandez Attending Unavailable Sophie, Belem Primary Care Unavailable Sophie, Belem Referring Unavailable Alejandra, Shar Referring Unavailable Alejandra, Shar Admitting Unavailable Yonis Webb Consulting Unavailable Alejandra Shar Attending Unavailable Sophie, Belem Primary Care Unavailable Natan Sandhu Consulting Unavailable Jen Ortiz Primary Care Unavailable Chaka Hernandez Attending Unavailable Chaka Hernandez Referring Unavailable Allergies Allergy Classification Reported Allergen(s) Allergy Type Date of Onset Reaction(s) Facility (5 sources) bacitracin; Translations: [BACITRACIN] Drug Allergy 3 [facility] Repository (14 sources) Latex; Translations: [LATEX] Propensity to adverse reactions (disorder) 4 [facility] (13 sources) Penicillins; Translations: [PENICILLINS] Propensity to adverse reactions to drug (disorder) 4 Rash, [facility] Repository (1 source) Penicillin; Translations: [penicillin] Drug Allergy rash [facility] Medications Current Medications Medication Drug Class(es) Dates Sig (Normalized) Sig (Original) acetaminophen 325 mg / oxyCODONE hydrochloride 5 mg oral tablet (9 sources) Opioid Agonist Start: 07-27-2023 take 1 tablet by mouth every four hours Oxycodone-Acetami nophen (Endocet) 5-325 mg tablet Active 1 TABLET PO Q4H 20 July 27, 2023 Start: 09-15-2014 End: 10-11-2018 take 1 tablet by mouth every four hours as needed Oxycodone-Acetaminophen Discontinued 1 - 2 TABLET PO EVERY 4 HOURS NEEDED September 15, 2014 12:00am October 11, 2018 10:00am aspirin 81 mg chewable tablet (2 sources) Platelet Aggregation Inhibitor, Nonsteroidal Anti-inflammatory Drug Start: 07-27-2023 take 81 mg by mouth twice daily Aspirin Active 81 MG PO TWICE A DAY 60 July 27, 2023 12:00am calcium carbonate 1250 mg / cholecalciferol 125 unt oral tablet (5 sources) Vitamin D Start: 11-23-2020 take 1 tablet by mouth once daily Calcium Carbonate-Vitamin D3 (Calcium 500 + D (D3)) 500 mg(1,250mg) -125 unit Tablet Active 1 TABLET PO DAILY November 23, 2020 12:00am Calcium/Magnesium/Vi t D (1 source) Start: 01-08-2024 Calcium/Magnesium/ Vit D Oral, qDay, 0 Refill(s) Start Date: 01/08/24 Status: Ordered Hydrocortisone (7 sources) Corticosteroid Start: 11-23-2020 Hydrocortisone Active 1 APPLIC TOPICAL DAILY NEEDED November 23, 2020 2:09pm Start: 11-23-2020 Hydrocortisone Active 1 APPLIC TOPICAL DAILY NEEDED November 23, 2020 12:00am Start: 11-23-2020 Hydrocortisone Active 1 APPLIC TOPICAL DAILY NEEDED November 22, 2020 11:00pm Multivitamin preparation (1 source) Start: 01-08-2024 take 1 tablet by mouth once daily Multivitamin Dose = 1 tab(s), Oral, Daily, 0 Refill(s) Start Date: 01/08/24 Status: Ordered polyethylene glycol 3350 320999 mg / potassium chloride 2970 mg / sodium bicarbonate 6740 mg / sodium chloride 5860 mg / sodium sulfate 19959 mg powder for oral solution (3 sources) Osmotic Laxative Start: 09-20-2023 peg 3350-Electrolytes (GOLYTELY) 236-22.74-6.74 -5.86 gram suspension Indications: Colon cancer screening Refer to printed patient instructions that will be mailed to you. 4000 mL 0 09/20/2023 Active Completed/Discontinued Medications Medication Drug Class(es) Dates Sig (Normalized) Sig (Original) amoxicillin 875 mg / clavulanate 125 mg oral tablet (7 sources) Penicillin-class Antibacterial Start: 06-25-2018 End: 07-05-2018 take 1 tablet by mouth every twelve hours Amoxicillin-Pot Clavulanate (Augmentin) 875-125 mg tablet Discontinued 1 TABLET PO Q12H 20 June 25, 2018 1:00am July 05, 2018 1:08am azithromycin 250 mg oral tablet (7 sources) Macrolide Antimicrobial Start: 06-01-2018 End: 10-11-2018 Azithromycin Discontinued 0 PO .COMPLEX June 01, 2018 1:00am October 11, 2018 10:00am take 500 mg today (day 1), then 250 mg for 4 days (days 2-5) PO etodolac 500 mg oral tablet (2 sources) Nonsteroidal Anti-inflammatory Drug Start: 07-19-2023 take 500 mg by mouth twice daily Etodolac Active 500 MG PO TWICE A DAY July 19, 2023 12:00am On Hold: FOR SURGERY 1 ml fentaNYL 0.05 mg/ml injection (1 source) Opioid Agonist Start: 11-07-2023 End: 11-07-2023 fentaNYL 50 mcg/mL 25-100 mcg injection (SUBLIMAZE) ibuprofen 800 mg oral tablet (7 sources) Nonsteroidal Anti-inflammatory Drug Start: 09-15-2014 End: 01-29-2019 take 800 mg by mouth three times daily as needed Ibuprofen Discontinued 800 MG PO 3 TIMES DAILY NEEDED 60 September 15, 2014 12:00am January 29, 2019 1:57pm Sodium,Potassium,Ma g Sulfates (7 sources) Start: 09-07-2017 End: 10-11-2018 take 1 mL by mouth once Sodium,Potassium,M ag Sulfates (Suprep Bowel Prep Kit) 17.5-3.13-1.6 gram recon soln Discontinued 200 ML PO ONCE 354 September 07, 2017 2:36pm October 11, 2018 10:00am Take as directed per instructions Start: 09-07-2017 End: 10-11-2018 take 1 mL by mouth once Sodium,Potassium,Mag Sulfate s (Suprep Bowel Prep Kit) 17.5-3.13-1.6 gram recon soln Discontinued 200 ML PO ONCE 354 September 07, 2017 12:00am October 11, 2018 10:00am Take as directed per instructions Start: 09-07-2017 End: 10-11-2018 take 1 mL by mouth once Sodium,Potassium,Mag Sulfate s (Suprep Bowel Prep Kit) 17.5-3.13-1.6 gram recon soln Discontinued 200 ML PO ONCE 354 September 06, 2017 11:00pm October 11, 2018 9:00am Take as directed per instructions 5 ml midazolam 1 mg/ml injection (1 source) Benzodiazepine Start: 11-07-2023 End: 11-07-2023 midazolam 1-5 mg injection (VERSED) 1000 ml sodium chloride 9 mg/ml injection (1 source) Start: 11-07-2023 End: 11-07-2023 NaCl 0.9% iv infusion triamcinolone acetonide 40 mg/ml injectable suspension (4 sources) Corticosteroid Start: 01-15-2019 End: 01-15-2019 Kenalog (triamcinolone acetonide) 40 mg/mL suspension for injection Discontinued 20 MG INTRAARTIC ONCE 0.5 January 15, 2019 9:23am January 15, 2019 9:34am Start: 05-04-2018 End: 05-04-2018 Kenalog (triamcinolone aceto nide) 40 mg/mL suspension for injection Discontinued 20 MG TENDON ONCE 0.5 May 04, 2018 10:17am May 04, 2018 10:35am Problems Active Problems Problem Classification Problem Date Documented Da te Episodic/Chronic Adjustment disorders (3 sources) Stress; Translations: [Reaction to severe stress, unspecified] Onset: 05-15-2012 05-15-2012 Chronic Allergic reactions (3 sources) Atopic dermatitis; Translations: [Atopic dermatitis, unspecified] Onset: 05-15-2012 05-15-2012 Chronic Immunizations and screening for infectious disease (2 sources) Encounter for screening for human papillomavirus (HPV); Translations: [Encounter for screening for human papillomavirus (HPV)] Onset: 01-08-2024 Episodic Osteoarthritis (7 sources) Disorder of patellofemoral joint; Translations: [Unilateral primary osteoarthritis, unspecified knee] Onset: 02-23-2024 07-19-2023 Chronic Other aftercare (7 sources) Patient encounter status; Translations: [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] Onset: 05-15-2012 05-15-2012 Episodic Other bone disease and musculoskeletal deformities (20 sources) Segmental and somatic dysfunction; Translations: [Segmental and somatic dysfunction of lumbar region] 02-04-2019 Episodic Other bone disease and musculoskeletal deformities (3 sources) Osteopenia; Translations: [Other specified disorders of bone density and structure, unspecified site] 11-11-2014 Episodic Other connective tissue disease (1 source) Presence of left artificial knee joint; Translations: [Presence of left artificial knee joint] Onset: 02-13-2024 Chronic Other female genital disorders (7 sources) Simple endometrial glandular hyperplasia without atypia; Translations: [Benign endometrial hyperplasia] 02-04-2019 Chronic Other non-traumatic joint disorders (4 sources) Pain in left knee; Translations: [Mechanical pain of left knee] 07-19-2023 Episodic Other screening for suspected conditions (not mental disorders or infectious disease) (4 sources) Encounter for screening for malignant neoplasm of colon; Translations: [Encounter for screening for malignant neoplasm of cervix] Onset: 11-07-2023 Episodic Unclassified (1 source) Unknown / UNK(Unknown) Onset: 12-08-2016 Past or Other Problems Problem Classification Problem Date Documented Da te Episodic/Chronic Allergic reactions (9 sources) Latex allergy status; Translations: [Allergy to latex] Onset: 05-15-2012 05-15-2012 Episodic Calculus of urinary tract (3 sources) Ureteric stone; Translations: [Calculus of ureter] Onset: 01-18-2010 01-18-2010 Episodic Joint disorders and dislocations; trauma-related (8 sources) Acute meniscal tear, medial; Translations: [Other tear of medial meniscus, current injury, left knee, initial encounter] Onset: 11-16-2023 07-20-2023 Episodic Melanomas of skin (3 sources) History of melanoma in situ of skin; Translations: [Personal history of melanoma in-situ] Onset: 08-07-2014 08-07-2014 Episodic Other and unspecified benign neoplasm (3 sources) History of polyp of colon; Translations: [Personal history of colonic polyps] Onset: 04-18-2006 04-18-2006 Episodic Other and unspecified benign neoplasm (3 sources) Benign neoplasm of colon; Translations: [Benign neoplasm of colon, unspecified] Onset: 04-18-2006 04-18-2006 Episodic Other bone disease and musculoskeletal deformities (3 sources) Exostosis; Translations: [Other specified disorders of bone, unspecified site] Onset: 10-02-2006 10-02-2006 Episodic Results Test Name Value Interpretation Reference Range Facility Basic Metabolic Profile (BMP )on 02-13-2024 BUN/CRE 16.9 RATIO Normal 02-17 [facility] Comment on above: Performed By: #### L 100.0500, L500.2500 #### [facility] [address] [place], [address] CA,Total 8.9 mg/dL Normal 8.5-10.1 [facility] Comment on above: Performed By: #### L 100.0500, L500.2500 #### [facility] [address] [place], [address] Chloride [Moles/Vol] 113 mmol/L High 98-107 [facility] Comment on above: Performed By: #### L 100.0500, L500.2500 #### [facility] [address] [place], [address] CO2 [Moles/Vol] 21.0 mmol/L Normal 21.0-32.0 [facility] Comment on above: Performed By: #### L 100.0500, L500.2500 #### [facility] [address] [place], [address] Creatinine [Mass/Vol] 0.59 mg/dL Normal 0.55-1.02 [facility] Comment on above: Result Comment: The validity of the calculated GFR GFRAA in patients over 70 years has not been determined. Clinical correlation is essential. Performed By: #### L 100.0500, L500.2500 #### [facility] [address] [place], [address] ECRCL 79.20 ml/min Normal [facility] Comment on above: Performed By: #### L 100.0500, L500.2500 #### [facility] [address] [place], [address] EST GFR - AA 133 mL/min Normal >60 [facility] Comment on above: Result Comment: Afri can Hungarian GFR Calc Performed By: #### L 100.0500, L500.2500 #### [facility] [address] [place], [address] GAP 7 Normal 5-15 [facility] Comment on above: Performed By: #### L 100.0500, L500.2500 #### [facility] [address] [place], [address] GFR/1.73 sq M.predicted among non-blacks MDRD (S/P/Bld) [Vol rate/Area] 110 mL/min/{1.73_m2} Normal >60 [facility] Comment on above: Result Comment: Non- GFR Calc Performed By: #### L 100.0500, L500.2500 #### [facility] [address] [place], [address] Glucose [Mass/Vol] 117 mg/dL High 74-106 [facility] Comment on above: Result Comment: Fast ing Glucose result from 100 to 125 mg/dL suggests IMPAIRED HOMEOSTASIS per A.D.A. criteria. Performed By: #### L 100.0500, L500.2500 #### [facility] [address] [place], [address] Potassium [Moles/Vol] 3.8 mmol/L Normal 3.5-5.1 [facility] Comment on above: Performed By: #### L 100.0500, L500.2500 #### [facility] [address] [place], [address] Sodium [Moles/Vol] 141 mmol/L Normal 136-145 [facility] Comment on above: Performed By: #### L 100.0500, L500.2500 #### [facility] [address] [place], [address] Urea nitrogen [Mass/Vol] 10 mg/dL Normal 7-18 [facility] Comment on above: Performed By: #### L 100.0500, L500.2500 #### [facility] [address] [place], [address] CBC-Complete Blood Cnt No Di ffon 02-13-2024 Erythrocyte distribution width (RBC) [Ratio] 11.9 % Normal 11.6-14.6 [facility] Comment on above: Performed By: #### L 100.0500, L500.2500 #### [facility] [address] [place], [address] Hematocrit (Bld) [Volume fraction] 33.0 % Low 37-47 [facility] Comment on above: Performed By: #### L 100.0500, L500.2500 #### [facility] [address] [place], [address] Hemoglobin (Bld) [Mass/Vol] 11.2 g/dL Low 12.0-15.0 [facility] Comment on above: Performed By: #### L 100.0500, L500.2500 #### [facility] [address] [place], [address] MCH (RBC) [Entitic mass] 33.7 pg High 27.0-32.0 [facility] Comment on above: Performed By: #### L 100.0500, L500.2500 #### [facility] [address] [place], [address] MCHC (RBC) [Mass/Vol] 33.9 g/dL Normal 32-36 [facility] Comment on above: Performed By: #### L 100.0500, L500.2500 #### [facility] [address] [place], [address] MCV (RBC) [Entitic vol] 99.4 fL High 81-99 [facility] Comment on above: Performed By: #### L 100.0500, L500.2500 #### [facility] [address] [place], [address] Platelet mean volume (Bld) [Entitic vol] 10.2 fL Normal 6.2-12.0 [facility] Comment on above: Performed By: #### L 100.0500, L500.2500 #### [facility] [address] [place], [address] Platelets (Bld) [#/Vol] 302 10*3/uL Normal 150-450 [facility] Comment on above: Performed By: #### L 100.0500, L500.2500 #### [facility] [address] [place], [address] RBC (Bld) [#/Vol] 3.32 10*6/uL Low 4.2-5.4 [facility] Comment on above: Performed By: #### L 100.0500, L500.2500 #### [facility] [address] [place], [address] RDW SD 43.6 fl Normal 35.1-43.9 [facility] Comment on above: Performed By: #### L 100.0500, L500.2500 #### [facility] [address] [place], [address] WBC (Bld) [#/Vol] 14.2 10*3/uL High 4.4-11.0 [facility] Comment on above: Performed By: #### L 100.0500, L500.2500 #### [facility] [address] [place], [address] Discharge Instructionon 01-29 Discharge Instruction [facility] Medical Records Department [address] [place] [address] Instructions for Home/Discharge Instructions 02/13/24 0838 MR#: [id number] Acct: [id number] Name: NADINE PIERCE Rep #: [id number] : 1965 59 From: David ESCAMILLAC PCP: IRAIDA Albarado Status:ADM HANSA Discharge Instructions Diet Discharge Diet: No restrictions Activity Discharge Activity: May Not Drive (Must be able to walk 100 feet with use of a cane and off all narcotics prior to driving) May shower in (days): 1 (Please turn dressing away from water. Okay to get wet as long as dressing is intact to skin.) Ice area for (Minutes): 20 (Every 1-2 hours while awake. Please place barrier between the skin and ice pack.) Weight Bearing Status: Weight bearing as tolerated Keep extremity elevated above heart level: Operative Extremity Dressing / Incision Call your doctor if your incision/area has: Continuous Slow Oozing, Sudden Increased Bleeding, Increased Pain/ Swelling, Increased Redness and Foul Smelling Discharge Call your doctor if you observe: Fever of 101 or Higher, Coldness, Increased Pain, Numbness or Tingling, Change in Color, Shortness of breath, Chest pain, Calf discomfort and Uncontrolled pain Remove Dressing in: 4 days (Okay to remove dressing on February 17, 2024) Additional Dressing/Incision Instructions:: Follow [facility] [facility] Post-op Instructions. Once postoperative dressing has been removed only use gentle soap and water over the incision. Do not use any ointments, Neosporin, salves, alcohol pads over the incision for 6 weeks postoperatively. Do not submerge underwater for 6 weeks postoperatively. Continue with NEYDA hose/elastic stockings for 2 weeks postoperatively. May remove at nighttime but needs to be placed back on the leg during the day. Do NOT use alcohol with narcotic pain medication. Do NOT make important decisions while taking narcotic medication. If you have problems with taking your medication (rash, itching, nausea, etc.) call the office at once. Follow Up Care Test Results: Test results from this visit will be discussed in further detail at your follow-up appointment, if applicable. Discharge Plan Admission Admit Date/Time: 02/12/24 07:10 Attending Provider: Shar Roberts Primary Care Provider: Belem Polanco Consulting Providers: Yonis Webb; Natan Sandhu Discharge Orders/Prescriptions Prescriptions: New acetaminophen 500 mg Tablet 1,000 mg PO Q8 Qty: 0 0RF Rx Instructions: Do not take more than 3000 mg Tylenol in a 24-hour period. aspirin [Adult Aspirin Regimen] 81 mg tablet,delayed release (DR/EC) 81 mg PO BID 30 Days Qty: 60 0RF Rx Instructions: Take 81 mg aspirin twice daily for 4 weeks postoperatively for DVT prophylaxis. meloxicam 7.5 mg Tablet 7.5 mg PO BID 30 Days Qty: 60 0RF Rx Instructions: Do not take any other nonsteroidal anti-inflammatories while using meloxicam/Mobic. famotidine 20 mg Tablet 20 mg PO DAILY 30 Days Qty: 30 0RF oxycodone 5 mg Tablet 5 - 10 mg PO Q4H PRN PRN (Reason: Pain Score 4-10) 7 Days Qty: 42 0RF sennosides-docusate sodium [Stimulant Laxative Plus] 8.6-50 mg Tablet 2 tab PO BID 3 Days Qty: 12 0RF Rx Instructions: Take until first bowel movement, then as needed Continued hydrocortisone 0.25 % Cream 1 applic TOPICAL DAILY PRN PRN (Reason: eczema) multivitamin [Daily Multi-Vitamin] Tablet 1 tab PO DAILY Calcium Citrate Plus (Vit B6) 550-07-6-125 zd-gd-yj-unit tablet 2 tab PO DAILY Referrals / Follow Up: Physical,Therapy [Other] - 02/15/24 10:30 am Belem Polanco NP-C [Primary Care Provider] - Viri Armendariz PA [Med Staff - [facility] Practice Prof] - 02/27/24 8:30 am Disposition Disposition (needs filled in before D/C Order can be placed): Home, Self Care 02/13/24 0844 David KEANE PA-C CC: IRAIDA Polanco; Dr. Yonis Webb MD; Dr. Natan Sandhu MD Signed Normal [facility] Bedside Glucoseon 02-12-2024 FINGERSTICK GLU 116 mg/dL High 74-106 [facility] Comment on above: Result Comment: DIANN AMAYA OF PATIENT CARE PER NURSING PROTOCOL Performed By: #### L 501.080 #### [facility] [address] [place], [address] Decalcification bone/plaqueo n 02-12-2024 Decalcification bone/plaque Patient Age/Sex Location Account Attending Physician NADINE PIERCE 59/F MS3 [id number] Dr. Shar Roberts MD Specimen: [id number] Received: 02/12/24 Status: TIBURCIO Jones Num: [id number] Spec Type: TOTAL KNEE Subm Dr: Dr. Shar Roberts MD HEADER OPERATION: Robotic assisted left total knee arthroplasty PRE-OP DIAGNOSIS: Severe left knee osteoarthritis TISSUE SUBMITTED: Left knee : bone and tissue MICROSCOPIC DIAGNOSIS Bone and soft tissue, left knee, total knee replacement/resection: Pieces of bone with degenerative osteoarthritic changes. Fibroadipose tissue, fibroconnective tissue and reactive synovial tissue. SJ: 02/15/2024 MICROSCOPIC DESCRIPTION Slides are reviewed. GROSS DESCRIPTION Received is one container designated bone and soft tissue left knee. The specimen consists of multiple fragments of singh-yellow bone measuring in aggregate 13.0 x 9.0 x 1.5 cm. Also in the specimen container are multiple fragments of yellow-white soft tissue measuring in aggregate 1.5 x 0.5 x 0.5 cm. A number of bony fragments contain articular surfaces consistent with tibial plateau and femoral condyle and displaying prominent osteophyte formation bone erosion. 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 / AM. 02/12/2024 TC:5 CPT: 12947, 17457 Patient Age/Sex Location Account Attending Physician NADINE PIERCE 59/F MS3 [id number] Dr. Shar Roberts MD Signed (signature on file) Dr. Phill Wang MD 02/15/24 1203 Normal [facility] Comment on above: Performed By: #### P DEC #### [facility] [address] [place], [address] Knee 1 or 2 Views 02-12-20 Knee 1 or 2 Views [facility] Imaging Services [address] [place], [place] [id number] Knee 1 or 2 Views MR#: [id number] Acct: [id number] Name: NADINE PIERCE GILBERT Rep #: [id number] : 1965 F 59 From: Neal Galvez MD PCP: IRAIDA Albarado Status: ADM HANSA Study: Knee 1 or 2 Views Date of Exam: 02/12/24 Exam# [id number] Ordering Dr: [place] [id number] STUDY: X-RAY - LEFT KNEE REASON FOR EXAM: Female, 59 years old. Post op - AP and lateral xray of operative knee in PACU. TECHNIQUE: 2 views of the left knee. COMPARISON: None. FINDINGS: There are new postoperative changes related to left total knee arthroplasty with patellar resurfacing. There is gas in the patellofemoral joint recess and anterior soft tissues, compatible with recent surgery. The orthopedic hardware components are intact. There is no periprosthetic fracture. Normal proximal tibiofibular articulation. RAD/Knee 1 or 2 Views IMPRESSION: New postoperative changes related to left total knee arthroplasty. Electronically Signed: Neal Galvez MD at 9:50 EDT Reading Location ID and State: [address] [place] [address] , Service support , CC: IRAIDA Polanco; Dr. Shar Roberts MD Relaster: Signed [facility] MR/POSTOP.[facility] 02-12-2024 MR/POSTOP.[facility] Medical Records Department [address] [place] [address] Anesthesia Postop Eval I 02/12/24 1043 MR#: [id number] Acct: [id number] Name: NADINE PIERCE Rep #: [id number] : 1965 59 From: Roddy Leon PCP: IRAIDA Albarado Status:ADM HANSA Y Race: C Location: [place] [address]1 Anesthesia: Postop Eval I Current Vital Signs Temperature: 97.1 F Pulse Rate: 106 Blood Pressure: 95/62 Respiratory Rate: 16 Pulse Ox: 98 Oxygen Delivery Method: Room Air Assessment Airway patent: Yes Spontaneous unlabored respirations: Yes Mental status: Awake and Calm nausea: No Vomiting: No Anesthesia Complication: No Fluid Hydration Crystalloid volume administer (ml): 700 Total IV fluid infused: 700 Progress Note Anesthesia document: Postop Eval 1 completed: Yes 02/12/24 1044 Date Roddy Edward Russelligner Signature: CC: Signed Normal [facility] MR/[id number] 02-12-2024 [facility] Medical Records Department [address] [place] [address] Anesthesia Postop Eval II 02/12/24 1001 MR#: [id number] Acct: [id number] Name: NADINE PIERCE GILBERT Rep #: [id number] : 1965 59 From: Yonis Webb MD PCP: IRAIDA Albarado Status:ADM HANSA Y Race: C Location: [place] [address] Anesthesia Postop Eval I Sum Anesthesia Postop Eval I Summary Anesthesia Postop Eval I Summary: Anesthesia Postop Eval I: Assessment Summary Airway patent Spontaneous unlabored respirations Mental status nausea Vomiting Anesthesia Postop Eval I: Fluid Summary Crystalloid volume administer (ml) Colloids volume administered ( ml) Blood Product volume administered (ml) Total IV fluid infused Anesthesia Postop Eval I: Summary Notes Anesthesia Complication Anesthesia Complication Comment: Post-operative progress note Anesthesia: Postop Eval II Evaluation Mental status: Awake Pain Level: 2 nausea: No Vomiting: No 02/12/24 1001 Date Yonis Russellignamarjit Signature: CC: Signed Normal [facility] Operative Reporton 4 Operative Report [facility] Medical Records Department [address] [place] [address] Operative Report 02/12/24 0831 MR#: [id number] Acct: [id number] Name: NADINE PIERCE Rep #: [id number] : 1965 59 From: Shar Roberts MD PCP: Belem Polanco NP-C Status:ADM HANSA Location: [place] [address] Report of Operation Date of Procedure: 02/12/24 Pre-Operative Diagnosis: Left knee primary osteoarthritis Post-Operative Diagnosis: Left knee primary osteoarthritis Surgery/Procedure Performed:: Left knee minimally invasive robotic assisted total knee replacement Description of Surgical Findings:: Stable knee with good patella tracking Surgeon: Shar Roberts data modeler: David Saez Type of Anesthesia: Spinal Anesthesiologist: Yonis Webb Special Medications: 2 g Ancef, 1 g TXA at incision, 1 g TXA closure, 10 mg Decadron, joint cocktail (5 mg Duramorph, 30 mL of 0.5% Ropivicaine, 1000 units of epinephrine, 30 mg of Toradol) Specimen's removed: Bony cuts Estimated Blood Loss (mL): 50 Fluids Replaced: 700 Description of Procedure: Implants used: 1. Pamela size 3 triathlon cruciate retaining distal femoral press-fit component 2. Pamela size 2 press-fit tritanium tibial baseplate 3. Pamela X3 9 mm polyethylene 4. [place] X3 29 mm asymmetric patella Brief history operative indications: 59-year-old F with history of left knee osteoarthritis with radiographic findings with loss of joint space, osteophyte formation and subchondral sclerosis. Failed conservative measures as mentioned in the H P. Discussion of total knee arthroplasty as well as risk and benefits were discussed the patient including but not limited to blood loss, DVTs, PEs, neurovascular damage, general risk of anesthesia including loss of life, and stiffness or instability were discussed with patient. Patient demonstrated understanding and was able to sign informed consent. Procedure: On the date of procedure patient's left lower extremity was marked in the preoperative area. The patient was then taken back to the operating room where the patient was placed on the table in the supine position. All bony prominences were identified a well-padded. Anesthesia assumed control of the C-spine and airway and remained controlled throughout the remainder of the procedure. A tourniquet was placed on the left upper thigh and the leg was prepped in a sterile fashion. The surgeon then scrubbed at this time .Upon reentering the room left lower extremity was draped in a standard orthopedic fashion. A timeout was then called and everyone agreed upon the side, the site, the procedure to be performed, patient's identity and antibiotics given. Esmarch bandage was used to exsanguinate the extremity and the tourniquet was placed up to 250 mmHg with the knee in flexion. A midline skin incision was made and sharp dissection was taken down through skin subcutaneous tissue and fat. The standard medial parapatellar incision was made and the patella was subluxed laterally. An Appropriate deep MCL release was done and the fat pad was resected. Our attention was then directed to the patella. The patella was everted and a flat resection was made. The knee was then flexed up in 2 femoral pins were placed inside the incision and 2 tibial pins were placed outside the incision in the medial tibia bicortically. Once this was completed the 2 checkpoints in the femur and tibia were placed. Knee was then flexed up and the bony landmarks were registered. Once this was completed knee was taken through range of motion and manually stressed allowing us to a plan for an appropriate tibial cut. The robotic arm was brought into the field sterilely and checkpoint and saw were registered. Based on the patient's deformity the tibial cut was made in 2 degrees of varus. At this time the tensioner was then placed in the joint and ligament tension was checked at 90 degrees and full extension. Based on the patient's ligamentous tension appropriate adjustments were made to the operative plan and ligament releases were done. Once we were happy with our operative plan with balanced flexion and extension gaps our attention was directed to the femur. The robot was brought into the field sterilely and registered. Posterior condylar cuts, anterior chamfer cuts and anterior cuts were appropriately made for a size 3 femur. When these were completed the saws were switched out in the distal femoral and posterior chamfer cuts were made. Protecting the soft tissue throughout this time. A size 2 tibial base plate was selected. the knee was flexed to 90 degrees and the soft tissues and posterior osteophytes were removed from the joint. 40 cc of the periarticular injection was injected into the posterior medial corner of the joint. The appropriate trials were then placed on the femur and tibia. A trial polyethylene was trialed to ensure proper b (more content not included)... Normal [facility] Albumin, Serumon 02-05-2024 Albumin [Mass/Vol] 4.4 g/dL Normal 3.2-5.0 [facility] Comment on above: Performed By: #### L 501.1800 #### [facility] [address] [place], [address] MRSA/SAID NASAL SCREENon MRSA+SAID SCRN Reason for Exam: PRE OP MRSA MRSA Negative S. AUREUS S. aureus Negative Normal [facility] Comment on above: Performed By: #### L 100.0500, L500.2500 #### [facility] [address] [facility] [address] Basic Metabolic Profile (BMP )on 01-17-2024 BUN/CRE 18.8 RATIO Normal 02-17 [facility] Comment on above: Performed By: #### L 500.2500, L100.0100 #### [facility] [address] [place], [address] CA,Total 9.9 mg/dL Normal 8.5-10.1 [facility] Comment on above: Performed By: #### L 500.2500, L100.0100 #### [facility] [address] [place], [address] Chloride [Moles/Vol] 105 mmol/L Normal 98-107 [facility] Comment on above: Performed By: #### L 500.2500, L100.0100 #### [facility] [address] [facility] [address] CO2 [Moles/Vol] 27.0 mmol/L Normal 21.0-32.0 [facility] Comment on above: Performed By: #### L 500.2500, L100.0100 #### [facility] [address] [place], [address] Creatinine [Mass/Vol] 0.58 mg/dL Normal 0.55-1.02 [facility] Comment on above: Result Comment: The validity of the calculated GFR GFRAA in patients over 70 years has not been determined. Clinical correlation is essential. Performed By: #### L 500.2500, L100.0100 #### [facility] [address] [place], [address] EST GFR - AA 135 mL/min Normal >60 [facility] Comment on above: Result Comment: Afri can Hungarian GFR Calc Performed By: #### L 500.2500, L100.0100 #### [facility] [address] [place], [address] GAP 6 Normal 5-15 [facility] Comment on above: Performed By: #### L 500.2500, L100.0100 #### [facility] [address] [place], [address] GFR/1.73 sq M.predicted among non-blacks MDRD (S/P/Bld) [Vol rate/Area] 111 mL/min/{1.73_m2} Normal >60 [facility] Comment on above: Result Comment: Non- GFR Calc Performed By: #### L 500.2500, L100.0100 #### [facility] [address] [place], [address] Glucose [Mass/Vol] 91 mg/dL Normal 74-106 [facility] Comment on above: Performed By: #### L 500.2500, L100.0100 #### [facility] [address] [place], [address] Potassium [Moles/Vol] 3.9 mmol/L Normal 3.5-5.1 [facility] Comment on above: Performed By: #### L 500.2500, L100.0100 #### [facility] [address] [place], [address] Sodium [Moles/Vol] 138 mmol/L Normal 136-145 [facility] Comment on above: Performed By: #### L 500.2500, L100.0100 #### [facility] [address] [place], [address] Urea nitrogen [Mass/Vol] 11 mg/dL Normal 7-18 [facility] Comment on above: Performed By: #### L 500.2500, L100.0100 #### [facility] [address] [place], [address] CBC W/Diff, Automatedon 12-30 Absolute Lymph 2.46 X10 3/uL Normal 0.83-4.51 [facility] Comment on above: Performed By: #### L 500.2500, L100.0100 #### [facility] [address] [place], [address] Absolute Neut 5.0 X10 3/uL Normal 2.0-7.7 [facility] Comment on above: Performed By: #### L 500.2500, L100.0100 #### [facility] [address] [place], [address] Basophils/100 WBC (Bld) 1.0 % Normal 0-1 [facility] Comment on above: Performed By: #### L 500.2500, L100.0100 #### [facility] [address] [place], [address] Eosinophils/100 WBC (Bld) 0.7 % Normal 0-5 [facility] Comment on above: Performed By: #### L 500.2500, L100.0100 #### [facility] [address] [place], [address] Erythrocyte distribution width (RBC) [Ratio] 11.9 % Normal 11.6-14.6 [facility] Comment on above: Performed By: #### L 500.2500, L100.0100 #### [facility] [address] [place], [address] Hematocrit (Bld) [Volume fraction] 40.3 % Normal 37-47 [facility] Comment on above: Performed By: #### L 500.2500, L100.0100 #### [facility] [address] [place], [address] Hemoglobin (Bld) [Mass/Vol] 13.7 g/dL Normal 12.0-15.0 [facility] Comment on above: Performed By: #### L 500.2500, L100.0100 #### [facility] [address] [place], [address] IG% 0.500 Normal 0.0-0.9 [facility] Comment on above: Result Comment: IG% - Immature Granulocytes (promyelocytes, myelocytes and metamyelocytes) > 1% indicates that a LEFT SHIFT is Present. Performed By: #### L 500.2500, L100.0100 #### [facility] [address] [place], [address] Lymphocytes/100 WBC (Bld) 29.2 % Normal 19-41 [facility] Comment on above: Performed By: #### L 500.2500, L100.0100 #### [facility] [address] [place], [address] MCH (RBC) [Entitic mass] 33.2 pg High 27.0-32.0 [facility] Comment on above: Performed By: #### L 500.2500, L100.0100 #### [facility] [address] [place], [address] MCHC (RBC) [Mass/Vol] 34.0 g/dL Normal 32-36 [facility] Comment on above: Performed By: #### L 500.2500, L100.0100 #### [facility] [address] [place], [address] MCV (RBC) [Entitic vol] 97.6 fL Normal 81-99 [facility] Comment on above: Performed By: #### L 500.2500, L100.0100 #### [facility] [address] [place], [address] Monocytes/100 WBC (Bld) 9.3 % Normal 0-10 [facility] Comment on above: Performed By: #### L 500.2500, L100.0100 #### [facility] [address] [place], [address] Neutrophils/100 WBC (Bld) 59.3 % Normal 47-70 [facility] Comment on above: Performed By: #### L 500.2500, L100.0100 #### [facility] [address] [place], [address] Nucleated RBC (Bld) [#/Vol] 0 10*3/uL Normal 0-5 [facility] Comment on above: Performed By: #### L 500.2500, L100.0100 #### [facility] [address] [place], [address] Platelet mean volume (Bld) [Entitic vol] 9.8 fL Normal 6.2-12.0 [facility] Comment on above: Performed By: #### L 500.2500, L100.0100 #### [facility] [address] [place], [address] Platelets (Bld) [#/Vol] 428 10*3/uL Normal 150-450 [facility] Comment on above: Performed By: #### L 500.2500, L100.0100 #### [facility] [address] [place], [address] RBC (Bld) [#/Vol] 4.13 10*6/uL Low 4.2-5.4 [facility] Comment on above: Performed By: #### L 500.2500, L100.0100 #### [facility] [address] [place], [address] RDW SD 42.5 fl Normal 35.1-43.9 [facility] Comment on above: Performed By: #### L 500.2500, L100.0100 #### [facility] [address] [place], [address] WBC (Bld) [#/Vol] 8.4 10*3/uL Normal 4.4-11.0 [facility] Comment on above: Performed By: #### L 500.2500, L100.0100 #### [facility] [address] [place] [place], [address] Magnesiumon 01-15-2024 Magnesium [Mass/Vol] 2.2 mg/dL Normal 1.6-2.6 [facility] Comment on above: Performed By: #### L 501.5200 #### [facility] [address] [place], [address] Extremity Lower without Cont raon 01-11-2024 Extremity Lower without Contra [facility] Imaging Services [address] [place] [address] Extremity Lower without Contra MR#: [id number] Acct: [id number] Name: NADINE PIERCE Rep #: [id number] : 1965 F 58 From: Trevon foster MD PCP: IRAIDA Albarado Status: REG CLI Study: Extremity Lower without Contra Date of Exam: 0 01/11/24 Exam# [id number] Ordering [place]: [place] [id number] CT LEFT LOWER EXTREMITY WITH 3-D IMAGING CLINICAL INDICATION: Other tear of medial meniscus, current injury, left knee, subsequ TECHNIQUE: Axial CT images of the LEFT lower extremity was performed without IV contrast material. Coronal and sagittal reformats were provided. The protocol utilizes one or more of the following dose reduction techniques: automated exposure control, adjustment of mA and/or kV according to patient size,and/or use of iterative reconstruction technique. RADIATION DOSAGE (If Supplied By Facility): CTDIvol = ( 18.76 ) mGy, DLP = ( 1449.93 ) mGycm COMPARISON: No relevant prior comparison study available FINDINGS: Bones: Imaging of the left hip joint was performed. There is good alignment. No significant abnormality is seen. Imaging of the knee joint was obtained. Mild degree of joint space narrowing. There is evidence of a 2.5 mm osteochondral defect seen along the posterior lateral aspect of the medial tibial plateau. There is a 7.6 mm cyst in the proximal posterior aspect of the medial tibial plateau medially. Imaging of the ankle joint was performed. No significant abnormality is seen. Soft Tissues: The deep soft tissue structures are unremarkable. The superficial soft tissues are unremarkable without evidence of edema, hematoma, or foreign body. CT/Extremity Lower without Contra IMPRESSION: Mild degree of joint space narrowing involving the medial compartment of knee joint with a 2.5 mm osteochondral defect seen along the posterolateral aspect of the medial tibial plateau. 7.6 mm subchondral cyst in the proximal posterior aspect of the medial tibial plateau. Electronically Signed: Trevon Soni MD at 14:45 EDT Reading Location ID and State: [address] [place] [address] , Service support , CC: IRAIDA Polanco; Dr. Shar Roberts MD Relaster: Signed [facility] [place] Cytology Reporton 2023 [facility] [place] Cytology Report . Pathology Reports Accession: Collected Date/Time: Received Date/Time: Pathologist: [id number] 01/08/2024 13:13 EDT 01/08/2024 18:00 EDT [facility] [place] Cytology Report SPECIMEN: Specimen Description: Liquid Prep w/ HPV Specimen: Cervical Screening or Diagnostic: Screening RELEVANT HISTORY: LMP: postmenopausal SPECIMEN ADEQUACY: SATISFACTORY FOR EVALUATION, BUT BORDERLINE SQUAMOUS CELLULARITY Endocervical/Transforma tional zone component absent/insufficient INTERPRETATION/RESULTS: NEGATIVE FOR INTRAEPITHELIAL LESION OR MALIGNANCY HIGH RISK HPV TESTING: Event Code Result HPV Interp See Interp HPVN HPV Interp Text: High Risk HPV Typing: NEGATIVE HPV types 16, 18, 31, 33, 35, 39, 45, 51, 52, 56, 58, 59, 66 and 68 DNA were undetectable or below the pre-set threshold. The lizzy High-Risk HPV DNA Test is not intended for use as a screening device for Pap normal women under age 30 and is not intended to substitute for regular Pap screening. The lizzy High-Risk HPV DNA Test is designed to augment existing methods for the detection of cervical disease and should be used in conjunction with clinical information derived from other diagnostic and screening tests, physical examinations and full medical history in accordance with appropriate patient management procedures. NOTE: A negative result does not preclude the presence of HPV infection because results depend on adequate specimen collection, absence of inhibitors and sufficient DNA to be detected. As of: 01/11/24 13:12 EDT COMMENT: This Pap Test was successfully processed and evaluated with the assistance of the [employer] Test Imaging System. Pathology Reports Accession: Collected Date/Time: Received Date/Time: Pathologist: [id number] 01/08/2024 13:13 EDT 01/08/2024 18:00 EDT Electronically Signed by Pathology report verified by [facility] Screened by: [place] Electronically signed by Lucrecia LAM (ASCP) Sign-Out Date: 01/11/2024 13:13 Performing Lab: [facility], [address] [place] [address] Pathology Dept Disclaimer The Pap test is a screening test for cervical cancer. As evidenced by published data, it is subject to both inherent false negative and false positive results. Your patient's results should be interpreted in context with pertinent clinical history including gynecological examination. Normal [facility] HPVon 01-11-2024 HPV Interp Normal See Interp HPVN [facility] Comment on above: Order Comment: Order placed by AP_HPV_ORDER rule from [id number] Result Comment: High Risk HPV Typing: NEGATIVE HPV types 16, 18, 31, 33, 35, 39, 45, 51, 52, 56, 58, 59, 66 and 68 DNA were undetectable or below the pre-set threshold. The lizzy High-Risk HPV DNA Test is not intended for use as a screening device for Pap normal women under age 30 and is not intended to substitute for regular Pap screening. The lizzy High-Risk HPV DNA Test is designed to augment existing methods for the detection of cervical disease and should be used in conjunction with clinical information derived from other diagnostic and screening tests, physical examinations and full medical history in accordance with appropriate patient management procedures. NOTE: A negative result does not preclude the presence of HPV infection because results depend on adequate specimen collection, absence of inhibitors and sufficient DNA to be detected. See Interp HPVN Performed By: #### H PV #### [place] [address] HPV Source Cervix Normal [facility] Comment on above: Order Comment: Order placed by AP_HPV_ORDER rule from [id number] Performed By: #### H PV #### [place] [address] LABORATORYOrdered By: Yadi Mir on 01-08-2024 HPV Interp High Risk HPV Typing : NEGATIVEHPV types 16, 18, 31, 33, 35, 39, 45, 51, 52, 56, 58, 59, 66 and 68 DNA wereundetectable or below the pre-set threshold.The lizzy High-Risk HPV DNA Test is not intended for use as a screening device forPap normal women under age 30 and is not intended to substitute for regular Papscreening.The lizzy High-Risk HPV DNA Test is designed to augment existing methods for thedetection of cervical disease and should be used in conjunction with clinicalinformation derived from other diagnostic and screening tests, physical examinationsand full medical history in accordance with appropriate patient managementprocedures.NO TE: A negative result does not preclude the presence of HPV infection because resultsdepend on adequate specimen collection, absence of inhibitors and sufficientDNA to be detected. Normal See Interp HPVN Auto Viro/Sero SS Specimen source Nom (Unsp spec) Cervix (01/08/24 1:13 PM) Normal Auto Viro/Sero SS Orthopedic Visit Reporton Orthopedic Visit Report [facility] [address] [place] [address] OFFICE VISIT Date of Service: 11/16/23 MR#: [id number] Acct: [id number] Name: NADINE PIERCE Rep #: [id number] : 1965 Provider: Dr. Chaka etienne MD Age/Sex: 58/F [place] [facility] [place] Status: Signed with Addenda ADDENDUM by Zakia Thomas on 11/16/23 at 0923 Office Procedure Documentation entered by Zakia Thomas 11/16/23 09:23: Ortho Injections Injections Yes Knee Left Is this Buy Bill?: No Details: Obtained consent for injection. Under sterile conditions, injected the patients left knee with 2cc Kenalog 4cc Bupivacaine. The patient tolerated the injection well without any noted complication. Patient should call our office if redness develops, pain worsens or if they have any concerns. Office Meds Kenalog 40 mg/mL suspension for injection Performing Provider: Chaka Hernandez MD Performing Location: [place] [facility] Administered by: Chaka Hernandez MD on 11/16/23 09:21 Dose Route Admin Location Dispensed Lot Number Expiration Date [place] Man ufacturer 80 mg intra-articular left knee 2 mL [id number] 07/30/25 9828-9001-19 [facility] Comments: bupivacaine 0.25% 4cc lot : [id number] exp : 06/29/24 ND : 2730-3970-43 Date cc: * Signed Intake Vital Signs 07/27/23 10:56 Height 5 ft 4 in Intake Visit Reasons: LEFT KNEE Chief Complaint: Left knee pain Accompanied by: Is patient in pain?: Yes Pain scale (1-10): 6 Allergies latex Allergy (Intermediate, Verified 11/16/23 09:04) Rash Penicillins Allergy (Intermediate, Verified 11/16/23 09:04) HIVES ?? Medications ???Medication ???Instructions ???Recorded ???Confirmed ???Type hydrocortisone 0.25 % topical cream 1 applic topical DAILY PRN PRN 11/23/20 11/16/23 History eczema etodolac 500 mg tablet 500 mg PO BID #40 tabs 07/19/23 11/16/23 Rx aspirin 81 mg chewable tablet 81 mg PO BID vte proph 1 month #60 07/27/23 11/16/23 Rx tabs PFSH Medical History Cancer PONV (postoperative nausea and vomiting) Acute medial meniscus tear of left knee TMJ (temporomandibular joint disorder) Post-menopausal Alcohol use Eczema Non-smoker History of stress test History of melanoma Headaches, cluster Surgical History History of ethmoidectomy History of tubal ligation Family History Other Colon cancer Social History Smoking Status: Never smoker alcohol intake: current alcohol intake frequency: holidays/special occasions only substance use type: does not use what type of physical activity do you participate in: walking and bicycling frequency: 5-6 times per week HPI LEFT KNEE Details: This documentation accurately reflects the service provided and the decisions made by me, Dr. Chaka Hernandez MD 11/16/23 0836. Part of today???s visit was documented by [ ], acting as scribe. NADINE PIERCE is a 58 year old F here today for 4 months FU Left knee arthroscopy, root repair of medial meniscus. Has some swelling, interested in a cortisone injection. The patient's knee 3 weeks ago felt fine no pain or swelling but since increasing a little bit of activity there is minimal pain and swelling and pain mostly on the medial joint line just lateral to the patellar tendon no infectious symptoms. Ortho Exam General General: Yes no acute distress Neurologic: Yes alert and Yes oriented x3 Psychologic: Yes reasonable and appropriate Left Knee Skin/Wound: Yes CDI, Yes healed, No ecchymosis, No erythema and No swelling (mild prepatellar) 1+: Effusion Knee ROM: Yes ROM-Flexion 0-140 Examination: Yes med jt line tenderness, No Lat jt line tenderness, No TTP inf pole patella, No Crepitus, No Pain with flexion and No Lara's Test Quad Atrophy: No KNEE: normal gait Coding Level of Care Code Attention Oracio Diagnoses Acute medial meniscus tear of left knee S83.242A Comment 20113 and CPT inject major joint Assessment and Plan Assessment and Plan (1) Acute medial meniscus tear of left knee: Status: Acute Plan: NADINE PIERCE is a 58 year old F here today for 4 months FU Left knee arthroscopy, root repair of medial meniscus. Has some swelling, interested in a cortisone injection. Differential diagnosis here for knee effusion is broad could have irritation synovitis of the knee read tear irritation at the posterior horn medial meniscus a new tear new problem tendinitis or a flare of the pre-existing medial compartment osteoarthritis. The patient was interested in procee (more content not included)... Normal [facility] Colonoscopyon 11-07-[address] [facility] Gastrointestinal Endoscopy Patient Name: Nadien Pierce Procedure Date: 11/07/2023 8:44 AM Date of : 1965 Admit Type: Outpatient Age: 58 Room: [place] [address] Gender: Female Note Status: Clinical Project Manager Override Attending MD: Chelsea Kent MD, [id number] Procedure: Colonoscopy Indications: Screening for colorectal malignant neoplasm, Colon cancer screening in patient at increased risk: Colorectal cancer in her father and grandfather. fmaily hsitory of Crohn's disease in her daugher; personal history of polyps Providers: Chelsea Kent MD Patient Profile: Last Colonoscopy: 2013. Referring Physician: Chelsea Kent MD (Referring MD) Medicines: Fentanyl 100 micrograms IV, Midazolam 5 mg IV Complications: No immediate complications. Requesting Provider: Procedure: Pre-Anesthesia Assessment: - Prior to the procedure, a History and Physical was performed, and patient medications and allergies were reviewed. The patient is competent. The risks and benefits of the procedure and the sedation options and risks were discussed with the patient. All questions were answered and informed consent was obtained. Patient identification and proposed procedure were verified by the physician in the pre-procedure area. Mental Status Examination: alert and oriented. Airway Examination: normal oropharyngeal airway and neck mobility. Respiratory Examination: clear to auscultation. CV Examination: normal. ASA Grade Assessment: II - A patient with mild systemic disease. After reviewing the risks and benefits, the patient was deemed in satisfactory condition to undergo the procedure. The anesthesia plan was to use moderate sedation / analgesia (conscious sedation). Immediately prior to administration of medications, the patient was re-assessed for adequacy to receive sedatives. The heart rate, respiratory rate, oxygen saturations, blood pressure, adequacy of pulmonary ventilation, and response to care were monitored throughout the procedure. The physical status of the patient was re-assessed after the procedure. After I obtained informed consent, the scope was passed under direct vision. Throughout the procedure, the patient's blood pressure, pulse, and oxygen saturations were monitored continuously. The Colonoscope was introduced through the anus and advanced to the cecum, identified by appendiceal orifice and ileocecal valve. The colonoscopy was technically difficult and complex due to the patient's discomfort during the procedure. Successful completion of the procedure was aided by applying abdominal pressure. The ileocecal valve, the appendiceal orifice and the rectum were photographed. The quality of the bowel preparation was fair. The patient tolerated the procedure fairly well. Hepatic flexure, splenic flexure, colon 0-40 cm crossed back and forth twice. Scope Withdrawal Time: 0 hours 8 minutes 5 seconds Moderate Sedation: The administration of moderate sedation was initiated at 08:50 AM. Moderate (conscious) sedation was administered by the nurse and supervised by the endoscopist. The patient's oxygen saturation, heart rate, blood pressure and response to care were monitored. Total Procedure Duration: 0 hours 12 minutes 59 seconds Findings: The colon (entire examined portion) - no polyps seen - no mass on digital examination - a single small-mouthed diverticulum was found in the sigmoid colon. Impression: - The entire examined colon is normal. - No specimens collected. Recommendation: - Discharge patient to home (ambulatory). - Patient has a contact number available for emergencies. The signs and symptoms of potential delayed complications were discussed with the patient. Return to normal activities tomorrow. Written discharge instructions were provided to the patient. - Continue present medications. - Repeat colonoscopy in 5 years for screening purposes. - Resume previous diet. Procedure Code(s): --- Professional --- 05609, Colonoscopy, flexible; diagnostic, including collection of specimen(s) by brushing or washing, when performed (separate procedure) Diagnosis Code(s): --- Professional --- Z80.0, Family history of malignant neoplasm of digestive organs Z12.11, Encounter for screening for malignant neoplasm of colon CPT copyright 2020 [employer]. All rights reserved. The codes documented in this report are preliminary and upon coil connector review may be revised to meet current compliance requirements. Attending Participation: I personally performed the entire procedure. Scope In: 9:00:42 AM Scope Out: 9:13:41 AM MD Chelsea Ortega MD 11/07/2023 9:23:56 AM This report has been signed electronically by Chelsea Kent MD Number of Addenda: 0 Note Initiated On: 11/07/2023 8:44 AM Estimated Blood Loss: Estimated blood loss: none. Normal [facility] Colonoscopy Study observatio non 11-07-2023 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 fmaily hsitory of Crohn's disease in her daugher; personal history of polyps Providers: Chelsea Kent MD Patient Profile: Last Colonoscopy: 2013. Referring Physician: Chelsea Kent MD (Referring MD) Medicines: Fentanyl 100 micrograms IV, Midazolam 5 mg IV Complications: No immediate complications. Requesting Provider: Procedure: Pre-Anesthesia Assessment: - Prior to the procedure, a History and Physical was performed, and patient medications and allergies were reviewed. The patient is competent. The risks and benefits of the procedure and the sedation options and risks were discussed with the patient. All questions were answered and informed consent was obtained. Patient identification and proposed procedure were verified by the physician in the pre-procedure area. Mental Status Examination: alert and oriented. Airway Examination: normal oropharyngeal airway and neck mobility. Respiratory Examination: clear to auscultation. CV Examination: normal. ASA Grade Assessment: II - A patient with mild systemic disease. After reviewing the risks and benefits, the patient was deemed in satisfactory condition to undergo the procedure. The anesthesia plan was to use moderate sedation / analgesia (conscious sedation). Immediately prior to administration of medications, the patient was re-assessed for adequacy to receive sedatives. The heart rate, respiratory rate, oxygen saturations, blood pressure, adequacy of pulmonary ventilation, and response to care were monitored throughout the procedure. The physical status of the patient was re-assessed after the procedure. After I obtained informed consent, the scope was passed under direct vision. Throughout the procedure, the patient's blood pressure, pulse, and oxygen saturations were monitored continuously. The Colonoscope was introduced through the anus and advanced to the cecum, identified by appendiceal orifice and ileocecal valve. The colonoscopy was technically difficult and complex due to the patient's discomfort during the procedure. Successful completion of the procedure was aided by applying abdominal pressure. The ileocecal valve, the appendiceal orifice and the rectum were photographed. The quality of the bowel preparation was fair. The patient tolerated the procedure fairly well. Hepatic flexure, splenic flexure, colon 0-40 cm crossed back and forth twice. Scope Withdrawal Time: 0 hours 8 minutes 5 seconds Moderate Sedation: The administration of moderate sedation was initiated at 08:50 AM. Moderate (conscious) sedation was administered by the nurse and supervised by the endoscopist. The patient's oxygen saturation, heart rate, blood pressure and response to care were monitored. Total Procedure Duration: 0 hours 12 minutes 59 seconds Findings: The colon (entire examined portion) - no polyps seen - no mass on digital examination - a single small-mouthed diverticulum was found in the sigmoid colon. Impression: - The entire examined colon is normal. - No specimens collected. Recommendation: - Discharge patient to home (ambulatory). - Patient has a contact number available for emergencies. The signs and symptoms of potential (more content not included)... PROVATION [facility] Radiology Study observation (narrative) [facility] HISTORY PHYSICALon HISTORY PHYSICAL HNO ID: [id number] Author: KRISTINA HERRERA PA-C Service: Colorectal Author Type: Physician Power Press Tender Type: H&P Filed: 11/07/2023 07:49 Note Text: HISTORY AND PHYSICAL EXAMINATION SERVICE DATE: 11/07/2023 SERVICE TIME: 7:41 AM PRIMARY CARE PHYSICIAN: No primary care provider on file. HPI: This is a 58 year old female who presents with a PMH significant for who presents for a planned Routine Colonoscopy. She currently denies any Chest Pain, palpitations, SOB, headache, dizziness, lightheadedness, change in vision or hearing, numbness or tingling in the hands or feet, abdominal pain, N/V/C/D, dysuria or hematuria, seizures or syncope. PAST MEDICAL HISTORY Diagnosis Date Colon polyps 5y screening cycle-father with colon cancer Condyloma acuminatum Dermatitis rubber and stress. allergy to Mixed dialkyl thioureas, nickel, ?latex, ?bacitracin Kidney stone Melanoma in situ of skin of trunk (HCC) 2012 abdomen Osteopenia 2014 PAST SURGICAL HISTORY Procedure Laterality Date COLONOSCOPY AND POLYPECTOMY 2001, 2005, 2006 hyperplastic polyp, JUVENILE-TYPE POLYP, negative COLONSCOPY SCREENING HIGH RISK 09/25/2013 ligate internal hemorrhoids ENDOMETRIAL BX W/WO ENDOCERVIX BX W/O DILAT SPX 06/02/2010 benign HYSTEROSCOPY BX W/WO DANDC 09/15/14 thickened endometrium LIG/TRNSXJ FLP TUBE ABDL/VAG APPR UNI/BI 01/29/04 PAST SURGICAL HISTORY OF 12/2012 melanoma insitu, mid abdomen REMOVAL OF IMPACTED TOOTH - COMPLETELY BONY 1981 wisdom teeth extracted FAMILY HISTORY Problem Relation Age of Onset Colon Cancer Father 59 Colon Cancer Paternal Grandfather 60 Diabetes Maternal Uncle No Family History Daughter No breast/semiconductor wafers etcher stripper cancer other (Crohns) Daughter Social History Tobacco Use Smoking status: Never Smokeless tobacco: Never Substance Use Topics Alcohol use: Yes Alcohol/week: 7.3 standard drinks of alcohol Types: 4 Glasses of Wine (5oz), 2 Cans of Beer (12oz), 1 Mixed Drinks per week Comment: socially Drug use: No (Not in a hospital admission) ALLERGIES Allergen Reactions Bacitracin Rash Patch test positive Latex Rash, Hives Penicillins Rash, Hives Current Outpatient Medications Medication Sig Dispense Refill peg 3350-Electrolytes (GOLYTELY) 236-22.74-6.74 -5.86 gram suspension Refer to printed patient instructions that will be mailed to you. 4000 mL 0 No current facility-administered medications for this encounter. COMPLETE REVIEW OF SYSTEMS: REVIEW OF SYSTEMS: GENERAL: No weight loss, malaise or fevers HEENT: Negative for frequent or significant headaches, No changes in hearing or vision, no nose bleeds or other nasal problems NECK: Negative for lumps, goiter, pain and significant neck swelling RESPIRATORY: Negative for cough, hemoptysis, wheezing, dyspnea or shortness of breath CARDIOVASCULAR: Negative for chest pain, leg swelling, claudication, palpitations GI: Positive for Colon PolypsNo abdominal pain, nausea, vomiting, black or tarry stools, diarrhea, or heartburn. : No history of dysuria, frequency or incontinence MUSCULOSKELETAL: Negative for joint pain or swelling, back pain or muscle pain SKIN: Negative for lesions, rash, and itching PSYCH: Negative for hallucination, depression, anxiety. HEMATOLOGY/LYMPHOLOGY: Negative for prolonged bleeding, bruising easily or swollen nodes ENDOCRINE: Negative for cold or heat intolerance, polyuria, polydipsia and goiter NEURO: No history of headaches, syncope, paralysis, seizures or tremors OBJECTIVE LMP 07/30/2014 VS: BP: 140/85 Pulse: 68 Respirations: 18 Temperature: 98.6 Pulse Ox: 98% PHYSICAL EXAM: GENERAL: AANDOx3, No Acute distress, cooperative SKIN: Skin color, texture, turgor normal. No rashes or lesions HEAD/SINUSES: No significant findings LUNGS: Lungs clear to auscultation bilaterally CARDIAC: Normal S1 and S2; no rubs, murmurs, or gallops appreciated on exam ABDOMEN: BS+ in all quadrants, abdomen soft, non-tender, and without guarding EXTREMITIES: Extremities normal, no deformities, edema, clubbing or skin discoloration, No ulcers NEURO: Motor and Sensation grossly intact PULSES: Distal pulses are positive and 2+ ASSESSMENT :Colon Polyps PLAN: Routine Colonoscopy I spent a total of 10 minutes on the date of the service which included preparing to see the patient, [id number] patient care, completing clinical documentation, obtaining and/or reviewing separately obtained history, performing a medically appropriate examination, counseling and educating the patient/family/caregive r, and ordering medications, tests, or procedures. SIGNATURE: Kristina Herrera PA-C PATIENT NAME: Nadine Pierce DATE: 11/07/2023 TIME: 7:[address] [facility] NURSING PROGon 11-07-2023 NURSING PROG HNO ID: [id number] Author: MARIA T JAVED RN Service: ? Author Type: Registered Nurse Type: Nursing Progress Note Filed: 11/08/2023 09:05 Note Text: [facility] ENDOSCOPY POST PROCEDURE FOLLOW UP CALL [phone] (home) Date Phone Call Made: 11/08/2023 Attempt: Attempt #1 Spoke to: Patient SYMPTOM DESCRIPTION Pain or Discomfort rated as: None IV No complaints Diet Back to Previous Yes Nausea/Vomiting: None Bleeding: None Bowel Habits: N/A Other Issues: No Complaints Offered Was the nursing staff attentive to your needs? Yes Is there something our department could have done to make your experience more pleasant? No Maria T Javed RN [facility] NURSING PROG HNO ID: [id number] Author: GAL BELLAMY RN Service: Nursing Author Type: Registered Nurse Type: Nursing Progress Note Filed: 11/07/2023 10:29 Note Text: Post procedure cramping, relieved by passing flatus. Otherwise, uneventful recovery. Discharge paperwork reviewed with patient and family with hard copy provided to patient for personal records. Patient verbalized understanding and declined any questions or concerns prior to discharge. Vital signs stable. Patient expressed readiness to discharge. Personal belongings returned. PIV removed without complication. Patient able to tolerate diet robi archie, without difficulty, prior to discharge. Patient ambulated to restroom, independently, without difficulty. Patient taken to [facility], by endoscopy staff, via wheelchair. No acute distress noted. [facility] NURSING PROG HNO ID: [id number] Author: BELEM EAGLE RN Service: ? Author Type: Registered Nurse Type: Nursing Progress Note Filed: 11/07/2023 07:52 Note Text: Pt provided with warm blankets.Call hauser within reach.IV established, fluids running.No signs of distress observed by RN upon leaving bedside. Pt laying in bed with easy respirations.Plan for consent to be obtained in intra-op room. [facility] NURSING PROGon 11-01-2023 NURSING PROG HNO ID: [id number] Author: SHAYLA JIMENEZ RN Service: ? Author Type: Registered Nurse Type: Nursing Progress Note Filed: 11/01/2023 14:03 Note Text: [facility] ENDOSCOPY PRE PROCEDURE CALL Christian. I'm calling from [facility] endoscopy to provide you with the information for your surgery/procedure tomorrow. 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 Yes When anesthesia or sedation is being given: Patient instructed you must have an adult otr company truck driver because you will not be able to work or drive for the rest of the day after your test.Yes Patient instructed to have a responsible, adult otr company truck driver to take them home after the procedure Yes. Due to having sedation, there is no working or driving the day of the procedure. Your otr company truck driver is allowed to wait here with you or they may drop you off and come back to pick you up. Colonoscopy: Did you warehouse picker your bowel prep Yes Remind patient the day prior to the test they should be on a clear liquid diet all day. Clear liquids consist of liquids that you can see through (no reds or purple). Stay well hydrated all day. Do not drink just the bowel prep to clean you out. Drink all of the prep to ensure your test can be completed and polyps are not missed. Remind pt to drink at least 1 cup of clear liquids every hour even after finishing the bowel prep (up until midnight or up until 4 hours before procedure)to keep yourself hydrated and to flush the prep through your system. If pt has eaten solid foods-contact endoscopist and verify if they wish to proceed. Patient instructed: Do not eat anything the morning of the procedure, including gum, hard candy and mints.Yes Patient instructed not bring any valuables, jewelry, or drake and wear comfortable clothing. Do not wear makeup, lotion, or finger [place] islander. Yes Patient instructed: Please bring a list of medications including over the counter, vitamin, and herbals. If you are on inhalers, please do them in the morning before your test and bring them with you.Yes Blood pressure, seizure, or thyroid medications may be taken with a couple sips of water ONLY 4 hours prior to arrival time. Is the patient on blood thinners?no If so,verify if pt contacted the prescribing doctor to see how long they may hold blood thinners prior to procedure. Are you diabetic?No If so, advise pt to contact prescribing doctor to verify if any modifications are needed for insulin and/or pills Reminder:diabetic medication instructions should be given by the patient's ordering physician. If blood sugar drops, they can have CLEAR liquids to bring it up until 3 hours prior to arrival time. Hospitalizations: No Procedure and/or bowel prep instructions given to patient and questions answered: Yes, and they verbalized their understanding of instructions given Any barriers to Patient learning (confusion? 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 Please complete your Pre-Check In paperwork in My Chart if applicable. If patient needs to reschedule please call: [phone] [facility] phone number: [phone] Type of instruction given: Verbal by telephone contact. [facility] Re-Evaluation - PT (1)on Re-Evaluation - PT (1) [facility] Physical Therapy [facility] [address] [place] [address]. [address] [place] [address] / REEVALUATION / MEDICARE RECERTIFICATION PHYSICAL THERAPY MR#: [id number] Acct: [id number] Name: NADINE PIERCE Rep #: [id number] : 1965 58 From: Aparna Liriano DPT Referring Dr.: Dr. Chaka Hernandez MD Status:REG R Insurance: [employer] SELF PAY INSURANCE Re-Evaluation Intro: Dr. Chaka Hernandez MD, It has been my pleasure to treat NADINE PIERCE over the last 8 visits for L medial meniscal repair 07/27/23. Please see the progress note below for an update on the physical therapy plan of care! Subjective Subjective: She is much better- she feels that she has turned the corner- each week its getting better. Headed to [facility] tomorrow. She will continue home exercise program and call if she needs us. She feels comfortable with [facility]- will ask if she has questions. Objective Objective/Function: Gait: slightly antalgic ROM: 0-120 degrees Strength: Flexion: 19.5 Extn: 24 Girth: Patella: 35 cm 6: Below:29.5 cm 6 Above: 44 Plan Plan Plan: 10/11/23 Hold until 10/29- if she does not follow up she can be discharged to [facility] 09/27/23:2-3x 4 weeks focus on taoism of gait pattern and functional mobility Table ex's x 6 weeks to focus on NWBing strenthening and ROM ex's. Progress to strengthening, PROM, balance training, and core strengthening at 6 weeks. Balance/Gait/Functional tests Balance/Special Test Scores Lower Extremity Functional Score: 49 Goals Goals Goal 1:: Decrease L knee pain x 50% to aid with ambulation Goal Time Frame: 6-8 Weeks Goal Progress: Progressing Goal 2:: Increase L knee strength to 90% of R knee to aid with stair negotiation Goal Time Frame: 6-8 Weeks Goal Progress: Progressing Goal 3:: Increase L knee flex ROM to 130 degrees to aid with return to exercise Goal Time Frame: 6-8 Weeks Goal Progress: Progressing Goal 4:: I with HEP Goal Time Frame: 6-8 Weeks Goal Progress: Goal Met Anticipated Interventions Anticipated Interventions Patient/Client Instruction: Educate patient on: Condition and Plan of Care For the Purpose of:: To improve self management Therapeutic Exercise to Include: Strength training, Endurance training, Balance training, Flexibilty training, Passive ROM, Active ROM and Dynamic Lumbar Stabilization For the Purpose of:: To decrease pain, To increase ROM and To improve muscle performance and motor function Cryotherapy (ice pack, ice massage): Yes For the Purpose of:: To decrease pain Re-Evaluation Ending Re-evaluation ending: Please do not hesitate to contact me at [phone] by phone or if you have questions or concerns regarding this new plan of care! Sincerely, Aparna Liriano, DPT 10/11/23 0956 CC: Dr. Chaka Hernandez MD; Jen Ortiz DO ELR Signed For Medicare only, by signing this I certify the plan of care. Physicians Signature Date Normal [facility] Orthopedic Visit Reporton Orthopedic Visit Report [facility] [address] [place] [id number] OFFICE VISIT Date of Service: 10/09/23 MR#: [id number] Acct: [id number] Name: NADINE PIERCE Rep #: [id number] : 1965 Provider: Dr. Chaka etienne MD Age/Sex: 58/F [place] [facility] [place]: Signed Intake Vital Signs 07/27/23 10:56 Height 5 ft 4 in Intake Visit Reasons: knee pain Chief Complaint: Left knee pain Accompanied by: Is patient in pain?: Yes (occasionally ) Allergies latex Allergy (Intermediate, Verified 10/09/23 08:23) Rash Penicillins Allergy (Intermediate, Verified 10/09/23 08:23) HIVES ?? Medications ???Medication ???Instructions ???Recorded ???Confirmed ???Type hydrocortisone 0.25 % topical cream 1 applic topical DAILY PRN PRN 11/23/20 10/09/23 History eczema etodolac 500 mg tablet 500 mg PO BID #40 tabs 07/19/23 10/09/23 Rx aspirin 81 mg chewable tablet 81 mg PO BID vte proph 1 month #60 07/27/23 10/09/23 Rx tabs PFSH Medical History Cancer PONV (postoperative nausea and vomiting) Acute medial meniscus tear of left knee TMJ (temporomandibular joint disorder) Post-menopausal Alcohol use Eczema Non-smoker History of stress test History of melanoma Headaches, cluster Surgical History History of ethmoidectomy History of tubal ligation Family History Other Colon cancer Social History Smoking Status: Never smoker alcohol intake: current alcohol intake frequency: holidays/special occasions only substance use type: does not use what type of physical activity do you participate in: walking and bicycling frequency: 5-6 times per week HPI knee pain Details: This documentation accurately reflects the service provided and the decisions made by me, Dr. Chaka Hernandez MD 10/09/23 0819. Part of today???s visit was documented by [ ], acting as scribe. NADINE PIERCE is a 58 year old F here today for 3 months FU Left knee arthroscopy, root repair of medial meniscus. Patient doing well. Some very slight swelling. Working hard with physical therapy now. A little bit of a squeak in the knee but other than that no mechanical symptoms. Ortho Exam General General: Yes no acute distress Neurologic: Yes alert and Yes oriented x3 Psychologic: Yes reasonable and appropriate Left Knee Skin/Wound: Yes CDI, Yes healed, No ecchymosis, No erythema and No swelling (mild prepatellar) 1+: Effusion Knee ROM: Yes ROM-Flexion 0-140 Examination: Yes med jt line tenderness, No Lat jt line tenderness, No TTP inf pole patella, No Crepitus, No Pain with flexion and No Lara's Test Quad Atrophy: No KNEE: normal gait Coding Level of Care Code Global Post Op Diagnoses Acute medial meniscus tear of left knee S83.242A Assessment and Plan Assessment and Plan (1) Acute medial meniscus tear of left knee: Status: Acute Plan: NADINE PIERCE is a 58 year old F here today for 3 months FU Left knee arthroscopy, root repair of medial meniscus. Patient doing well progressing as expected. They should continue to work on getting the swelling fully down and if there is any concerns or red flag symptoms or mechanical symptoms to return to clinic but otherwise the patient is happy to follow-up as needed or at 1 year postoperatively. Plan Details Goals Barriers: Goals Decrease pain and spasm Decrease inflammation 10/09/23 0836 Date Chaka Russellign Signature: Date (if applicable) CC: [facility] 09-20-2023 [facility] Telephone (SPDIG) NADINE PIERCE ([id number]) 1965 F Date Time Provider Department 09/20/23 CHELSEA KENT During your visit today, we recorded the following information about you: Jen Benjamin 09/20/2023 8:32 AM Signed Patient is calling to schedule colonoscopy with Dr. Kent Her last colonoscopy was with Dr. Kent in 08/2013 and then 03/2011 before that. [address] you please place an order and also recommend prep? Thank you! Fanny Serra, CASEY 09/20/2023 9:28 AM Signed Called patient to verify pharmacy [facility] Orders pended Fanny Serra, CASEY Special[employer] Process Specialist Allergies As of Date: 09/20/2023 Noted Allergy Reaction BACITRACIN 05/22/2012 2 - Rash Comments: Patch test positive LATEX 12/16/2003 2 - Rash 4 - Hives PENICILLINS 12/16/2003 2 - Rash 4 - Hives Date Reviewed: 12/08/2016 Reviewed by: Jada Wyatt ([facility]), CERTIFIED MEDICAL RECORDS CODER - Fully Assessed Reason for Visit: Procedure [88] Primary Visit Diagnosis:Colon cancer screening [Z12.11] Other Visit Diagnosis:Special screening for malignant neoplasms, colon [Z12.11] Order(s):COLONOSCOPY SCREENING [GI51] Order #: [id number] FUTURE peg 3350-Electrolytes (GOLYTELY) 236-22.74-6.74 -5.86 gram suspensionRefer to printed patient instructions that will be mailed to you.Disp: 4000 mLRfl: 0 COLONOSCOPY SCREENING [GI51] Order #: [id number] FUTURE Prescriptions as of 09/20/2023 - peg 3350-Electrolytes (GOLYTELY) 236-22.74-6.74 -5.86 gram suspension Refer to printed patient instructions that will be mailed to you. Problem List As Of Date 09/20/2023 Noted Resolved PERS HX COLONIC POLYPS [Z86.010] 04/18/2006 BENIGN NEOPLASM LG BOWEL [D12.6] 04/18/2006 EXOSTOSIS, SITE NOS [M89.8X9] 10/02/2006 Calculus of Ureter [N20.1] 01/18/2010 Latex allergy status [Z91.040] 05/15/2012 Encounter for long-term (current) use of high-r*05/15/2012 Contact dermatitis and other eczema due to othe*05/15/2012 Atopic dermatitis [L20.9] 05/15/2012 Stress [F43.9] 05/15/2012 Personal history of allergy to latex [Z91.040] 05/18/2012 History of melanoma in situ [Z86.006] 08/07/2014 Osteopenia [M85.80] Well adult exam [Z00.00] 10/26/2015 Prescriptions ordered this encounter Disp Refills Start End PEG 3350-ELECTROLYTES 236 GRAM-22.74* 4000* 0 09/20/2023 Sig: Refer to printed patient instructions that will be mailed to you. Encounter Status:Closed by CHELSEA KENT on 09/20/23 [facility] Absolute lymphocyte countOrd ered By: Jne Ortiz on 08-10-2022 Lymphocytes Auto (Unsp spec) [#/Vol] 1.76 10*3/uL 0.83-4.51 [facility] Basophil percentageOrdered B y: Jen Ortiz on 08-10-2022 Basophils/100 WBC (Bld) 1.2 % 0-1 [facility] Bilirubin [Mass/Vol] 0.60 mg/dL 0.20-1.00 [facility] Comment on above: For patients on eltr ombopag therapy, use of Dimension [place] TBIL is not recommended. Chloride [Moles/Vol] 110 mmol/L 98-107 [facility] Cholesterol [Mass/Vol] 218 mg/dL <200 [facility] Comment on above: <200 mg/dL Desirable 200-240 mg/dL Borderline >240 mg/dL High Risk Eosinophils/100 WBC (Bld) 8.3 % 0-5 [facility] Glucose [Mass/Vol] 90 mg/dL 74-106 [facility] Neutrophils (Bld) [#/Vol] 2.2 10*3/uL 2.0-7.7 [facility] Neutrophils/100 WBC (Bld) 44.3 % 47-70 [facility] Potassium [Moles/Vol] 3.7 mmol/L 3.5-5.1 [facility] Protein [Mass/Vol] 7.1 g/dL 6.4-8.2 [facility] Sodium [Moles/Vol] 137 mmol/L 136-145 [facility] Triglyceride [Mass/Vol] 107 mg/dL <199 [facility] Comment on above: The drugs N-Acetylcy steine and Metamizole may falsely depress this assay.Serum Triglycerides Reference Interval Normal <150 mg/dL Borderline high 150 - 199 mg/dL High 200 - 499 mg/dL Very High > or = 500 mg/dL WBC (Bld) [#/Vol] 5.0 10*3/uL 4.4-11.0 [facility] Blood erythrocytes count (nu mber/volume)Ordered By: Jen Ortzi on 08-10-2022 RBC (Bld) [#/Vol] 4.12 10*6/uL 4.2-5.4 [facility] Blood hemoglobin measurement (mass/volume)Ordered By: Jen Ortiz on 08-10-2022 Hemoglobin (Bld) [Mass/Vol] 14.0 g/dL 12.0-15.0 [facility] Blood lymphocytes/100 leukoc ytesOrdered By: Jen Ortiz on 08-10-2022 Lymphocytes/100 WBC (Bld) 35.5 % 19-41 [facility] Blood monocytes/100 leukocyt esOrdered By: Jen Ortiz on 08-10-2022 Monocytes/100 WBC (Bld) 10.5 % 0-10 [facility] Blood platelet mean volumeOr dered By: Jen Ortiz on 08-10-2022 Platelet mean volume (Bld) [Entitic vol] 10.1 fL 6.2-12.0 [facility] Determination of erythrocyte mean corpuscular volume (MCV)Ordered By: Jen Ortiz on 08-10-2022 MCV (RBC) [Entitic vol] 100.2 fL 81-99 [facility] Hematocrit Auto (Bld) [Volum e fraction]Ordered By: Jen Ortiz on 08-10-2022 Hematocrit (Bld) [Volume fraction] 41.3 % 37-47 [facility] Laboratory - Chemistry and C hemistry - challengeOrdered By: Jen Ortiz on 08-10-2022 ALP [Catalytic activity/Vol] 75 U/L 45-117 [facility] ALT [Catalytic activity/Vol] 18 U/L 13-56 [facility] CO2 [Moles/Vol] 24.0 mmol/L 21.0-32.0 [facility] Globulin (S) [Mass/Vol] 3.2 g/dL 2.2-4.2 [facility] Urea nitrogen/Creatinine [Mass ratio] 14.6 mg/mg 10-20 [facility] Laboratory - Hematology and Cell countsOrdered By: Jen Ortiz on 08-10-2022 Erythrocyte distribution width (RBC) [Entitic vol] 42.7 fL 35.1-43.9 [facility] Erythrocyte distribution width (RBC) [Ratio] 11.8 % 11.6-14.6 [facility] Immature granulocytes/100 WBC (Bld) 0.200 % 0.0-0.9 [facility] Comment on above: IG% - Immature Granu locytes (promyelocytes, myelocytes and metamyelocytes) > 1% indicates that a LEFT SHIFT is Present. MCH (RBC) [Entitic mass] 34.0 pg 27.0-32.0 [facility] Nucleated RBC/100 WBC (Bld) [Ratio] 0 % 0-5 [facility] MCHC Auto (RBC) [Mass/Vol]Or dered By: Jen Ortiz on 08-10-2022 MCHC (RBC) [Mass/Vol] 33.9 g/dL 32-36 [facility] No Panel InformationOrdered By: Jen Ortiz on 08-10-2022 Estimated GFR (MDRD) Amer 112 mL/min >60 [facility] Comment on above: GFR Calc Estimated GFR (MDRD) Non-Af Amer 93 mL/min >60 [facility] Comment on above: Non- GFR Calc Thyroid Stimulating Hormone (TSH) 3.10 uIU/mL 0.358-3.74 [facility] Platelets bldOrdered By: Cathy Ortiz on 08-10-2022 Platelets (Bld) [#/Vol] 373 10*3/uL 150-450 [facility] Serum or plasma albumin loly urement (mass/volume)Ordered By: Jen Ortiz on 08-10-2022 Albumin [Mass/Vol] 3.9 g/dL 3.2-5.0 [facility] Serum or plasma albumin/glob ulin mass ratioOrdered By: Jen Ortiz on 08-10-2022 Albumin/Globulin [Mass ratio] 1.2 {ratio} 0.9-2.4 [facility] Serum or plasma calcium loly urement (mass/volume)Ordered By: Jen Ortiz on 08-10-2022 Calcium [Mass/Vol] 9.4 mg/dL 8.5-10.1 [facility] Serum or plasma cholesterol in HDL measurement (mass/volume)Ordered By: Jen Ortiz on 08-10-2022 Cholesterol in HDL [Mass/Vol] 88 mg/dL >40 [facility] Comment on above: The drugs N-Acetylcy steine and Metamizole may falsely depress this assay. Reference Range HDL <40 mg/dL Low HDL Cholesterol HDL >or= 60 mg/dL High HDL Cholesterol Serum or plasma cholesterol in VLDL measurement (mass/volume)Ordered By: Jen Ortiz on 08-10-2022 Cholesterol in VLDL [Mass/Vol] 21 mg/dL 5-40 [facility] Serum or plasma creatinine m easurement (mass/volume)Ordered By: Jen Ortiz on 08-10-2022 Creatinine [Mass/Vol] 0.69 mg/dL 0.55-1.02 [facility] Comment on above: The validity of the calculated GFR & GFRAA in patients over 70 years has not been determined. Clinical correlation is essential. Serum or plasma low density lipoprotein (LDL) cholesterol measurement (mass/volume)Ordered By: Jen Ortiz on 08-10-2022 Cholesterol in LDL [Mass/Vol] 109 mg/dL 0-130 [facility] Serum or plasma urea nitroge n measurement (mass/volume)Ordered By: Jen Ortiz on 08-10-2022 Urea nitrogen [Mass/Vol] 10 mg/dL 7-18 [facility] Thin prep Papanicolaou smear with manual screeningOrdered By: Jen Ortiz on 08-10-2022 Thin prep Papanicolaou smear with manual screening 16 U/L 15-37 [facility] Thin prep Papanicolaou smear with manual screening 3 5-15 [facility] Whole blood hemoglobin A1c/t otal hemoglobin ratio (mass fraction)Ordered By: Jen Ortiz on 08-10-2022 HbA1c (Bld) [Mass fraction] 5.2 % 3.8-5.6 [facility] Comment on above: Normal < 5.7 % Predi abetic 5.7 - 6.4 % Diabetic >or= 6.5 % Please note range changes. CNOVon 12-08-2016 [facility] RADHA NADINE STINSON ([id number]) 1965 FDate Time Provider Department12/08/16 3:00 PM J[facility] WYATT) [facility] visit today, we recorded the following information about you: Pulse Respiration Blood pressure Weight 60/minute 16/minute 116/84 58.1 kg Height 1.613 Simona Wyatt CNP, CNP 12/08/2016 3:31 PM SignedHPI/CC: Nadine Pierce is a 51 year old female who presents for a well [facility].New concerns today include none.REVIEW OF SYSTEMS:GENERAL:Denies fever, chills, night sweats, or changes in weight.DERMATOLOGIC: Denies any new skin conditions, rashes or changing moles.EYES: Denies recent visual changes., wears glasses/contactsENT: Denies hearing loss or tinnitusRESPIRATORY: Denies any cough, dyspnea, or wheezing.CARDIOVASCULAR : Denies any chest pain with exertion or at rest, palpitations,syncope, or edema.BREASTS: Denies any breast lumps, tenderness, dimpling, skin changes, or nippledischarge.GASTROI NTESTINAL: Denies any nausea, vomiting, abdominal pain, heartburn,changes in bowel habit, Denies any rectal bleeding. Last colonoscopy: 2014GENITOURINARY: Denies any urinary frequency, urgency, incontinence, dysuria.Denies vaginal odor, discharge or lesions. Denies irregular vaginal bleeding orspotting. Patient's last menstrual period was 07/30/2014. BSE? yesLast Pap 08/2016MUSCULOSKELETAL: Denies any joint swelling, crepitus, joint pain, or loss ofrange of motion., Denies back pain. Last BMD 2014NEURO: Denies any headaches, tremors, dizziness, vertigo, memory loss,confusion., Denies weakness, numbness or tingling..PSYCHIATRIC: Denies any sleeping problems, history of abuse, marital discord.,Denies any anxiety or depression.HEMATOLOGIC/ LYMPHATIC/IMMUNOLOGIC: Denies anemia, bruising, bleedingabnormalities.E NDOCRINE: Denies any heat or cold intolerance, polyuria or polydipsia.HISTORIESPAS T MEDICAL HISTORYDiagnosis Date- Colon polyps 5y screening cycle-father with colon cancer- Condyloma acuminatum- Dermatitis rubber and stress. 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 abdomen- Osteopenia 2014[facility] [id number], 2005, 2006: COLONOSCOPY ANDamp; POLYPECTOMY Comment: hyperplastic polyp, JUVENILE-TYPE POLYP, negative09/25/2013: COLONSCOPY SCREENING HIGH RISK Comment: ligate internal hemorrhoids06/02/2010: ENDOMETRIAL BIOPSY Comment: benign09/15/14: HYSTEROSCOPY BX W/WO DANDamp;C Comment: thickened [id number]: IMPACT TOOTH REMOV COMP BONY Comment: wisdom teeth [id number]/30/04: LIGATE FALLOPIAN TUBE12/2012: PAST SURGICAL HISTORY OF Comment: melanoma insitu, mid abdomenFAMILY HISTORY Colon Cancer Father 59 Colon Cancer Paternal Grandfather 60 Diabetes Maternal Uncle No Family History Daughter Comment: No breast/semiconductor wafers etcher stripper cancer Crohns [OTHER] DaughterSocial History Marital status: Spouse name: [place] Years of education: 16 Number of children: 3Occupational 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* [employer] *Social History Main Topics Smoking status: Never Smoker Smokeless status: Never Used Alcohol use: Yes 10.5 oz/week 4 Glasses of Wine (5oz), 2 Cans of Beer (12oz), 1 Mixed Drinks per week Comment: socially Drug use: No Sexual activity: Yes Partners with: Male control/protection: SurgicalOther Topics ConcernMilitary Service NoSleep Concern NoSpecial Diet NoExercise NoSeat Belt YesSelf-Exams YesNo current outpatient prescriptions on file prior to visit.No current facility-administered medications on file prior to visit.ALLERGIESAllergen Reactions- Bacitracin Rash Patch test positive- Latex Rash, Hives- Penicillins Rash, HivesOBJECTIVE/PHYSICAL EXAMINATION:BP 116/84 Pulse 60 Resp 16 Ht 161.3 cm (5' 3.5ANDquot;) Wt 58.1 kg (128lb) LMP 07/30/2014 BMI 22.32 kg/b6Jxuzkwv appearance: Well appearing, alert, in no acute distress, well-hydrated,well nourished.Skin: Skin color, texture, turgor normal, no suspicious rashes or lesionsHead: Normocephalic, no masses, lesions, tenderness or abnormalitiesEyes: Anicteric sclera. Pupils are equally round and reactive to light.Extraocular movements are intact.Ears: External ears normal, canals clear, TM's normalNose/Sinuses: Nares normal, septum midline, mucosa normal, no drainage or sinustendernessOrophary nx: Lips, mucosa, and tongue normal, teeth and gums normal, oropharynxnormalNeck: Supple, no adenopathy; thyroid symmetric, normal size, no bruitsBack: Normal examLungs: Lungs clear to auscultation. No wheezing, rhonchi, ralesHeart: Regular rate and rythm without murmur, normal S1 and Y9Cfwwcfz: Normal abdominal exam, Abdomen soft, non-tender. Bowel sounds normal.No masses, organomegalyExtremities : No deformities, edema, skin discoloration, clubbing or cyanosis.Good capillary refill.Musculoskeletal: Spine range of motion normal. Muscular strength intact, Nojoint swelling, deformity, or tendernessPeripheral pulses: NormalNeuro:Awake, alert and oriented x 3, Cranial nerves II-XII grossly intact,Reflexes symmetrical, Normal gait and No involuntary motions.ASSESSMENT/PLAN :1. Well adult exam - ICD9: V70.0, ICD10: Z00.00- Encouraged monthly Breast Self Exam- Recommended calcium intake with supplements or by diet (goal of 1200-1500mg/day- Follow up for annual exam in one year.- insurance form completedJada Wyatt CNPReferring Provider: LENY LARIOS [[id number]]Allergies As of Date: 12/08/2016 Noted Allergy ReactionBACITRACIN 05/22/2012 2 - Rash Comments: Patch test positiveLATEX 12/16/2003 2 - Rash 4 - HivesPENICILLINS 12/16/2003 2 - Rash 4 - HivesDate Reviewed: 12/08/2016Reviewed by: Jada [place]) MALIKA Wyatt - Fully AssessedReason for Visit: Physical [83] Cmt: with labsPrimary Visit Diagnosis:Well adult exam [Z00.00]Problem List As Of Date 12/08/2016 Noted Resolved PERS HX COLONIC POLYPS [Z86.010] INVALID FOR* BENIGN NEOPLASM LG BOWEL [D12.6] INVALID FOR* EXOSTOSIS, SITE NOS [M89.8X9] INVALID FOR* Calculus of Ureter [N20.1] INVALID FOR* Latex allergy status [Z91.040] INVALID FOR* Encounter for long-term (current) use of high-r*INVALID FOR* Contact dermatitis and other eczema due to othe*INVALID FOR* Atopic dermatitis [L20.9] INVALID FOR* Stress [F43.9] INVALID FOR* Personal history of allergy to latex [Z91.040] INVALID FOR* History of melanoma in situ [Z86.008] INVALID FOR* Osteopenia [M85.80] Well adult exam [Z00.00] INVALID FOR* Status:Closed by JADA WYATT CNP on 12/08/16 [facility] PROGRESSon 12-08-2016 PROGRESS HNO ID: [id number]: Jada Kirby (Malika) MALIKA WyattService: (none)Author Type: Nurse PractitionerType: Progress NotesFiled: 12/08/2016 3:31 PMNote Text:HPI/CC: Nadine Pierce is a 51 year old female who presents for a welladult exam[facility].New concerns today include none.REVIEW OF SYSTEMS:GENERAL:Denies fever, chills, night sweats, or changes in weight.DERMATOLOGIC: Denies any new skin conditions, rashes or changing moles.EYES: Denies recent visual changes., wears glasses/contactsENT: Denies hearing loss or tinnitusRESPIRATORY: Denies any cough, dyspnea, or wheezing.CARDIOVASCULAR : Denies any chest pain with exertion or at rest,palpitations, syncope, or edema.BREASTS: Denies any breast lumps, tenderness, dimpling, skin changes, ornipple discharge.GASTROINTESTI NAL: Denies any nausea, vomiting, abdominal pain, heartburn,changes in bowel habit, Denies any rectal bleeding. Last colonoscopy: 2013GENITOURINARY: Denies any urinary frequency, urgency, incontinence,dysuria. Denies vaginal odor, discharge or lesions. Denies irregularvaginal bleeding or spotting. Patient's last menstrual period was07/30/2014. BSE? yesLast Pap 08/2016MUSCULOSKELETAL: Denies any joint swelling, crepitus, joint pain, or lossof range of motion., Denies back pain. Last BMD 2014NEURO: Denies any headaches, tremors, dizziness, vertigo, memory loss,confusion., Denies weakness, numbness or tingling..PSYCHIATRIC: Denies any sleeping problems, history of abuse, maritaldiscord., Denies any anxiety or depression.HEMATOLOGIC/ LYMPHATIC/IMMUNOLOGIC: Denies anemia, bruising, bleedingabnormalities.E NDOCRINE: Denies any heat or cold intolerance, polyuria or polydipsia.HISTORIESPAS T MEDICAL HISTORYDiagnosis Date- Colon polyps 5y screening cycle-father with colon cancer- Condyloma acuminatum- Dermatitis rubber and stress. 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 abdomen- Osteopenia 2014[facility]ST SURGICAL [id number], 2005, 2006: COLONOSCOPY AND POLYPECTOMY Comment: hyperplastic polyp, JUVENILE-TYPE POLYP, negative09/25/2013: COLONSCOPY SCREENING HIGH RISK Comment: ligate internal hemorrhoids06/02/2010: ENDOMETRIAL BIOPSY Comment: benign09/15/14: HYSTEROSCOPY BX W/WO DANDC Comment: thickened [id number]: IMPACT TOOTH REMOV COMP BONY Comment: wisdom teeth [id number]/30/04: LIGATE FALLOPIAN TUBE12/2012: PAST SURGICAL HISTORY OF Comment: melanoma insitu, mid abdomenFAMILY HISTORY Colon Cancer Father 59 Colon Cancer Paternal Grandfather 60 Diabetes Maternal Uncle No Family History Daughter Comment: No breast/semiconductor wafers etcher stripper cancer Crohns [OTHER] DaughterSocial History Marital status: Spouse name: [place] Years of education: 16 Number of children: 3Occupational 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* [employer] *Social History Main Topics Smoking status: Never Smoker Smokeless status: Never Used Alcohol use: Yes 10.5 oz/week 4 Glasses of Wine (5oz), 2 Cans of Beer (12oz), 1 Mixed Drinks perweek Comment: socially Drug use: No Sexual activity: Yes Partners with: Male control/protection: SurgicalOther Topics ConcernMilitary Service NoSleep Concern NoSpecial Diet NoExercise NoSeat Belt YesSelf-Exams YesNo current outpatient prescriptions on file prior to visit.No current facility-administered medications on file prior to visit.ALLERGIESAllergen Reactions- Bacitracin Rash Patch test positive- Latex Rash, Hives- Penicillins Rash, HivesOBJECTIVE/PHYSICAL EXAMINATION:BP 116/84 Pulse 60 Resp 16 Ht 161.3 cm (5' 3.5) Wt 58.1 kg (128lb) LMP 07/30/2014 BMI 22.32 kg/n5Ywgyxvu appearance: Well appearing, alert, in no acute distress,well-hydrated, well nourished.Skin: Skin color, texture, turgor normal, no suspicious rashes or lesionsHead: Normocephalic, no masses, lesions, tenderness or abnormalitiesEyes: Anicteric sclera. Pupils are equally round and reactive to light.Extraocular movements are intact.Ears: External ears normal, canals clear, TM's normalNose/Sinuses: Nares normal, septum midline, mucosa normal, no drainage orsinus tendernessOropharynx: Lips, mucosa, and tongue normal, teeth and gums normal,oropharynx normalNeck: Supple, no adenopathy; thyroid symmetric, normal size, no bruitsBack: Normal examLungs: Lungs clear to auscultation. No wheezing, rhonchi, ralesHeart: Regular rate and rythm without murmur, normal S1 and N1Ferakci: Normal abdominal exam, Abdomen soft, non-tender. Bowel soundsnormal. No masses, organomegalyExtremities : No deformities, edema, skin discoloration, clubbing orcyanosis. Good capillary refill.Musculoskeletal: Spine range of motion normal. Muscular strength intact,No joint swelling, deformity, or tendernessPeripheral pulses: NormalNeuro:Awake, alert and oriented x 3, Cranial nerves II-XII grossly intact,Reflexes symmetrical, Normal gait and No involuntary motions.ASSESSMENT/PLAN :1. Well adult exam - ICD9: V70.0, ICD10: Z00.00- Encouraged monthly Breast Self Exam- Recommended calcium intake with supplements or by diet (goal [id number] mg/day- Follow up for annual exam in one year.- insurance form completedJada Wyatt CNP [facility] Vital Signs Date Time Vital Sign Value Performing Clinician Facility 11-07-2023 10:10-0400 Diastolic blood pressure 67 mm[Hg] Chelsea Kent MD Work Phone: [facility] Comment on above: same as prior reading 11-07-2023 10:10-0400 Heart rate 60 /min Chelsea Kent MD Work Phone: [facility] 11-07-2023 10:10-0400 Respiratory rate 15 /min Chelsea Kent MD Work Phone: [facility] 11-07-2023 10:10-0400 SaO2% (BldA) [Mass fraction] 95 % Chelsea Kent MD Work Phone: [facility] 11-07-2023 10:10-0400 Systolic blood pressure 132 mm[Hg] Chelsea Kent MD Work Phone: [facility] Comment on above: same as prior reading 11-07-2023 09:20-0400 Body temperature 96.8 [degF] Chelsea Kent MD Work Phone: [facility] 11-07-2023 07:50-0400 Body height 160 cm Chelsea Kent MD Work Phone: [facility] 11-07-2023 07:50-0400 Body mass index (BMI) [Ratio] 21.97 kg/m2 Chelsea Kent MD Work Phone: [facility] 11-07-2023 07:50-0400 Body weight 56.25 kg Chelsea Kent MD Work Phone: [facility] 07-27-2023 14:39-0400 Body temperature 97.8 [degF] DO Jen Angel Work Phone: [facility] 07-27-2023 14:39-0400 Diastolic blood pressure 91 mm[Hg] DO Jen Angel Work Phone: [facility] 07-27-2023 14:39-0400 Heart rate 84 /min DO Jen Angel Work Phone: [facility] 07-27-2023 14:39-0400 Respiratory rate 16 /min DO Jen Angel Work Phone: [facility] 07-27-2023 14:39-0400 SaO2% (BldA) [Mass fraction] 95 % DO Jen Angel Work Phone: [facility] 07-27-2023 14:39-0400 Systolic blood pressure 124 mm[Hg] DO Jen Angel Work Phone: [facility] 07-27-2023 10:56-0400 Body height 162.56 cm DO Jen Angel Work Phone: [facility] 07-27-2023 10:56-0400 Body mass index (BMI) [Ratio] 21.6 kg/m2 DO Jen Angel Work Phone: [facility] 07-27-2023 10:56-0400 Body weight 57.2 kg DO Jen Angel Work Phone: [facility] 07-19-2023 08:03-0400 Body mass index (BMI) [Ratio] 20.9 kg/m2 DO Jen Angel Work Phone: [facility] 07-19-2023 08:03-0400 Body weight 55.33 kg DO Jen Angel Work Phone: [facility] Encounters Encounter Date Encounter Type Care Provider Facility Start: 10-04-2024 [facility] Facility:[facility] Start: 02-13-2024 Encounter for other preprocedural examination Natan Sandhu [facility] Start: 02-12-2024 End: 02-13-2024 ambulatory Shar Roberts Facility:[facility] Start: 01-11-2024 End: 01-11-2024 ambulatory Belemgisell Polanco Facility:[facility] Start: 01-08-2024 End: 01-12-2024 ambulatory HARLAN MELCHOR MD Facility:[facility] Start: 01-08-2024 End: 01-12-2024 Outreach Lab HARLAN MELCHOR MD [facility] Start: 11-16-2023 End: 11-16-2023 ambulatory Chaka Hernandez Facility:[facility] Start: 11-10-2023 End: 11-10-2023 ambulatory Jen Ortiz Facility:[facility] Start: 11-07-2023 ambulatory CHELSEA KENT Facility:[facility] Start: 11-07-2023 End: 11-07-2023 Subsequent hospital visit by physician Chelsea Kent MD Work Phone: [facility] Comment on above: Colon cancer screeni ng [Z12.11] Start: 11-01-2023 ambulatory Chelsea Kent MD Work Phone: [facility] Start: 10-09-2023 End: 10-09-2023 ambulatory Chaka Hernandez Facility:[facility] Start: 09-20-2023 Telephone encounter Chelsea Kent MD Work Phone: [facility] Comment on above: Procedure Start: 07-27-2023 Non-patient / Non-visit DO Cathy Ortiz Work Phone: [facility] Start: 07-27-2023 End: 07-27-2023 Admission to same day surgery center DO Jen Ortiz Work Phone: [facility] Start: 07-27-2023 End: 07-27-2023 ambulatory DO Jen Ortiz Work Phone: [facility] Work Phone: Start: 07-20-2023 End: 07-20-2023 Patient encounter procedure DO Jen Ortiz Work Phone: [facility] Work Phone: Start: 07-20-2023 End: 07-20-2023 ambulatory DO Jen Ortiz Work Phone: [facility] Work Phone: Start: 07-20-2023 End: 07-20-2023 Patient encounter procedure DO Jen Ortiz Work Phone: [facility] Work Phone: Start: 07-19-2023 End: 07-19-2023 Patient encounter procedure DO Jen Ortiz Work Phone: [facility] Work Phone: Start: 09-01-2022 End: 09-01-2022 ambulatory [facility] Work Phone: Start: 09-01-2022 End: 09-01-2022 Patient encounter procedure [facility] Start: 08-10-2022 End: 08-10-2022 ambulatory [facility] Work Phone: Start: 08-10-2022 End: 08-10-2022 Patient encounter procedure [facility] Start: 09-01-2021 End: 09-01-2021 Patient encounter procedure [facility] Start: 08-30-2021 End: 08-30-2021 Patient encounter procedure [facility] Start: 12-08-2016 End: 12-09-2016 Ambulatory JADA WYATT [facility] Start: 10-26-2015 Patient encounter status Chelsea Kent MD Work Phone: [facility] Work Phone: Procedures Date Procedure Procedure Detail Performing Clinician Start: 11-07-2023 Colonoscopy flx dx w /collj spec when pfrmd Chelsea Kent MD Work Phone: Start: 11-07-2023 Colonoscopy Chelsea Weathers Work Phone: Start: 07-27-2023 Arthroscopy of knee DO Jen Ortiz Work Phone: Start: 07-20-2023 MRI of joint of lowe r extremity DO Jen Ortiz Work Phone: Start: 07-19-2023 Radiologic examinati on of knee DO Jen Ortiz Work Phone: Start: 06-30-2023 Repair of meniscus DEE MELCHOR MD Comment on above: left knee Start: 09-01-2022 Screening mammography Start: 09-01-2021 Ultrasonography of breast Start: 08-30-2021 Screening mammography Start: 10-07-2015 Lipid 1996 panel - S jessenia or Plasma Chelsea Kent MD Work Phone: Start: 09-25-2013 Colonoscopy Chelsea Weathers Work Phone: Start: 05-01-1997 Ligation of fallopian tube HARLAN MELCHOR MD Biopsy of lesion of skin RACHEL MELCHOR MD Plan of Treatment Date Care Activity Detail Author Start: 11-06-2028 Screening for malign ant neoplasm of colon [facility] Start: 06-25-2028 Urine microalbumin profile DTaP,Tdap,Td Vaccine (3 - Td or Tdap) [facility] Start: 12-31-2023 Influenza vaccination [facility] Start: 11-07-2023 End: 11-07-2023 Patient encounter procedure 11/07/2023 9:00 AM EDT Appointment [facility] [place] [address] [place] [address] Kent MD [address] [place] [address] Colon cancer screening [facility] Comment on above: Colon cancer screeni ng Start: 11-01-2023 Urine microalbumin profile DTaP,Tdap,Td Vaccine (2 - Td or Tdap) [facility] Start: 09-21-2023 End: 09-19-2024 Screening colonoscopy COLONOSCOPY SCREENING Endoscopy Routine Colon cancer screening Special screening for malignant neoplasms, colon Expected: 09/21/2023, Expires: 09/19/2024 [facility] Comment on above: Expected: 09/21/2023 , Expires: 09/19/2024 Start: 07-27-2023 Application of ice collar, cap or bag [facility] Start: 07-27-2023 Assessment of risk o f venous thromboembolism [facility] Start: 07-27-2023 Catheterization of vein [facility] Start: 07-27-2023 Deep breathing and coughing exercises [facility] Start: 07-27-2023 Elevation of affecte d extremity [facility] Start: 07-27-2023 Following clinical pathway protocol [facility] Start: 07-27-2023 Incentive spirometry [facility] Start: 07-27-2023 Introduction of urin stephanie catheter [facility] Start: 07-27-2023 Patient discharge [facility] Start: 07-27-2023 Patient education [facility] Start: 07-27-2023 Taking patient vital signs [facility] Start: 07-27-2023 Touch weight-bearing gait training [facility] Start: 07-27-2023 Vital signs measurements [facility] Start: 07-27-2023 [facility] Start: 07-27-2023 Medication education [facility] Start: 05-01-2023 Behavioral Health Screening Behavioral Health Screening [facility] Start: 2023 RSV Vaccine (1 - 1-d ose 60+ series) RSV Vaccine (1 - 1-dose 60+ series) [facility] Start: 12-30-2022 Covid-19 Vaccine ( season) Covid-19 Vaccine ( season) [facility] Start: 09-07-2021 Screening for malign ant neoplasm of cervix [facility] Start: 10-06-2020 Lipid panel Lipid Screening [facility] Start: 11-26-2019 Diabetes Screening Diabetes Screenin g [facility] Start: 09-25-2018 Screening for malign ant neoplasm of colon [facility] Start: 05-11-2018 Screening for malign ant neoplasm of breast Mammogram Screening [facility] Start: 2013 Shingrix Vaccine (1 of 2) Cornelius grix Vaccine (1 of 2) [facility] Start: 01-25-2008 Screening for malign ant neoplasm of colon [facility] Start: 1981 HIV screening HIV Screening [facility] Patient referral [facility] Work Phone: End: 09-19-2024 Screening colonoscopy COLONOSCOPY SCREENING Endoscopy Routine Colon cancer screening 1 Occurrences starting 09/20/2023 until 09/19/2024 [facility] Work Phone: Comment on above: 1 Occurrences starti ng 09/20/2023 until 09/19/2024 Immunizations Immunization Date Immunization Notes Care Provider [facility] 03-18-2023 influenza virus vaccine, unspecified formulation Chelsea Kent MD Work Phone: [facility] 05-27-2020 Covid (Moderna) [facility] 04-29-2020 Covid (Moderna) [facility] 02-17-2020 influenza, injectabl e, quadrivalent, preservative free DO Jen Ortiz Work Phone: [facility] 02-17-2020 influenza, seasonal, injectable [facility] 03-06-2019 influenza, injectabl e, quadrivalent, preservative free DO Jen Ortiz Work Phone: [facility] 03-06-2019 influenza, seasonal, injectable [facility] 06-25-2018 tetanus toxoid, redu lorne diphtheria toxoid, and acellular pertussis vaccine, adsorbed [facility] 06-25-2018 diphtheria, tetanus toxoids and acellular pertussis vaccine, unspecified formulation [facility] Work Phone: 02-28-2018 influenza, injectabl e, quadrivalent, preservative free DO Jen Ortiz Work Phone: [facility] 02-28-2018 influenza, seasonal, injectable [facility] 02-22-2017 influenza, injectabl e, quadrivalent, preservative free DO Jen Angel Work Phone: [facility] 02-22-2017 influenza, seasonal, injectable [facility] 01-28-2016 influenza, injectabl e, quadrivalent, preservative free DO Jen Angel Work Phone: [facility] 01-28-2016 influenza, seasonal, injectable [facility] 03-16-2015 influenza, injectabl e, quadrivalent, preservative free DO Jen Angel Work Phone: [facility] 03-16-2015 influenza, seasonal, injectable [facility] 02-06-2014 influenza, injectabl e, quadrivalent, preservative free DO Jen Angel Work Phone: [facility] 02-06-2014 influenza, seasonal, injectable [facility] 10-31-2013 tetanus toxoid, redu lorne diphtheria toxoid, and acellular pertussis vaccine, adsorbed Chelsea Kent MD Work Phone: [facility] Payers Date Payer Category Payer Unknown [id number] 2023 Self-pay [id number] 2023 Unknown [id number] 1 [id number] 2016 Unknown [id number] 1965 Unknown [id number] [id number] Unknown [id number] [id number] Unknown [id number] [id number] Unknown [id number] [id number] Unknown [id number] 2.16.8 [id number] Unknown [id number] 2.16.8 [id number] Unknown [id number] 2.16.8 [id number] Unknown [id number] 2.16.8 [id number] Unknown [id number] Social History Date Type Detail Facility Start: 11-23-2020 End: 07-25-2023 Tobacco smoking status PRIS Unknown if ever smoked [facility] Start: 1965 Sex Assigned At Female [facility] Start: 06-30-2014 End: 01-08-2024 Tobacco smoking status PRIS Never smoked tobacco [facility] Start: 06-30-2014 Tobacco use and exposure Smokeless tobacco non-user [facility] Start: 12-08-2016 End: 11-07-2023 Alcohol intake Current drinker of alcohol (finding) [facility] Start: 12-08-2016 End: 11-07-2023 Alcohol intake [facility] Start: 10-29-2017 End: 11-07-2023 Tobacco use panel [facility] Start: 12-26-2006 Alcohol Comment socially [facility] Start: 1965 Sex Assigned At Not on file [facility] NEGATED: Highlighted row [facility] Medical Equipment Procedure Code Equipment Code Equipment Origin al Text Equipment Identifier Dates LUI 3GRM HEMO STAT ABS FDA Start: 02-04-2019 LUI 3GRM HEMO STAT ABS FDA Start: 11-30-2020 LUI 3GRM HEMO STAT ABS FDA Start: 02-04-2019 LUI 3GRM HEMO STAT ABS FDA Start: 11-30-2020 LUI 3GRM HEMO STAT ABS FDA Start: 02-04-2019 LUI 3GRM HEMO STAT ABS FDA Start: 11-30-2020 LUI 3GRM HEMO STAT ABS FDA Start: 02-04-2019 LUI 3GRM HEMO STAT ABS FDA Start: 11-30-2020 LUI 3GRM HEMO STAT ABS FDA Start: 02-04-2019 LUI 3GRM HEMO STAT ABS FDA Start: 11-30-2020 LUI 3GRM HEMO STAT ABS FDA Start: 02-04-2019 LUI 3GRM HEMO STAT ABS FDA Start: 11-30-2020 LUI 3GRM HEMO STAT ABS FDA Start: 02-04-2019 LUI 3GRM HEMO STAT ABS FDA Start: 11-30-2020 Goals Date Patient Goal Desired Activity /State Mental Status Date Assessment Result Facility 07-27-2023 Cognitive function Voice/Name [facility] Work Phone: Clinical Notes 07-27-2023 to 02-07-[address] RN - 11/07/2023 10:25 AM Gal Galloway RN - 11/07/2023 10:25 AM Belem Melo RN - 11/07/2023 7:52 AM Kristina Kendrick PA-C - 11/07/2023 9:00 AM EDT Note Date & Type Note Facility 02-07-2024 Note [facility] Medical Records Department [address] [place] [id number] History Physical Exam 02/07/24 1257 MR#: [id number] Acct: [id number] Name: PIERCENICKYNADINEANAIS HUNT Rep #: [id number] : 1965 59 From: David KEANE PA-C PCP: IRAIDA Albarado Status:[facility] Location: [place] [address] History and Physical History and Physical Patient Name: Nadine Noah Stan : 1965From:??? DAVID SAEZ PA-C DATE OF PRE-OPERATIVE EXAM: 02/07/2024 DATE OF SURGERY:??? 02/12/2024 SCHEDULED PROCEDURE:??? Robotic-assisted left total knee arthroplasty HISTORY OF PRESENT ILLNESS: Preoperative history and physical exam was performed on February 07, 2024.??? This is a 59-year-old female who is had ongoing pain for over 8 months.??? Patient has had a previous left knee arthroscopy by Dr. Hernandez in June 2023.??? She had a medial meniscus root repair.??? Patient has continued to have pain persistent since the surgery.??? She has been an avid walker in which she has had to stop due to the pain.??? The previous injury for this knee occurred in December 2022.??? Patient's pain has been intermittent.??? Pain is increased with going up and down stairs.??? Pain can reach 8/10 with activities.??? Patient's pain is located over the medial aspect of the knee.??? Patient has had a previous corticosteroid injection which only gave 4 days of relief.??? The pain has been affecting her activities of daily living including walking.??? She has tripped/stumbled secondary to pain.??? Pain is increased with going up and down stairs.??? She will occasionally get episodes of locking sensation.??? Patient has had recent MRI on January 03, 2024 which did reveal medial compartment failure with mjig-ln-ldpu contact and grade 4 chondromalacia was severe medial femoral stress last year edema and insufficiency fracture.??? Patient has attempted previous physical therapy and home exercises.??? She has tried rest and ice with minimal relief.??? Patient has used [id number] ibuprofen and Tylenol for pain control.??? After failing conservative measures and discussing all treatment options was Dr. Shar Roberts, the patient does wish to proceed with a robotic assisted left total knee arthroplasty.??? Patient has obtain surgical clearance from the primary care provider Belem Polanco.??? She denies past history of DVT or pulmonary embolism.??? No recent chest pain, shortness breath, fevers chills or recent infections. REVIEW OF SYSTEMS: Review Of Systems: Constitutional: Denies change in appetite, fever and weight change. Cardiovasular: Denies chest pain, heart murmur and irregular heartbeat. Respiratory: Denies cough, pneumonia, shortness of breath, tuberculosis and wheezing. Gastrointestinal: Denies constipation, diarrhea, heartburn, nausea, rectal itching, bloody stools and vomiting. Musculoskeletal: Reports trouble walking, but denies leg swelling, pain and weakness. Skin: Denies Raynaud's, history of shingles and tattoo. Neurological: Denies ambulatory dysfunction, dizziness, numbness/tingling and tremor. Psychiatric: Denies anxiety, insomnia and stress. Hematologic/Lymphatic: Denies anemia, bleeding/bruising tendency and past transfusion. Reviewed, no changes. PAST MEDICAL HISTORY: Advance Care Plan: No Advance Directives Effective Date: 12/22/2023 Past Medical History: Medical Problems: Arthritis Cancer - melanoma Kidney Stones, Psoriasis, Covid- 19, Covid-19 Vaccine, PVCS Accidents: None Surgical Hx: Tubal Ligation meniscus root repair - LEFT SIDE Sinus Surgeries - X2 Anesthesia Complications: None Assistive Devices: None Reviewed and updated. 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 Personal Habits:??? Cigarette Use: Never Smoked Cigarettes.Smokeless Tobacco: Never Used Smokeless Tobacco.E-Cigarette Use: Never used.Alcohol: Occasionally.Drug Use: Denies Use.Enjoy Exercising: Daily. Reviewed, no changes. VITALS: Ht: 63 Wt: 128lb Wt k.061 BMI: 22.7 BP: 126/82 Pulse: 68 Resp: 15 T: 97.8 T: 36.6C Pain Level: 1 O2SatR: 98 ALLERGIES: Penicillin MEDICATIONS: Multi Vitamin??? take one(1) tablet daily., Fkseboo-Ckubsjzyd-Yjus 334-134-5 mg twice a day PRE-OP EXAM: General appearance:NORMAL? Other: Eyes: Conjunctivae and lids: NORMAL??? Pupils: ERR Ears, Nose, Mouth, and Throat: NORMAL??? Other: Inspection of lips, teeth and gums: NORMAL? Other: Neck: Examination of neck: no masses noted. Respiratory: Assessment of respiratory effort: NORMAL? Other: ? Auscultation of lungs: clear to auscultation no wheezes, rhonchi or rales. Cardiovascular:??? Auscultation of heart: regular rate and rhythm, no murmurs, gallops or rubs. PHYSICAL EXAMINAT (more content not included)... [facility] 01-11-2024 Note LMP: postmenopausal [facility] 01-11-2024 Note LMP: postmenopausal [facility] 01-11-2024 Note LMP: postmenopausal [facility] 01-11-2024 Note LMP: postmenopausal [facility] 01-11-2024 Note LMP: postmenopausal [facility] 01-11-2024 Note LMP: postmenopausal [facility] 01-11-2024 Note LMP: postmenopausal [facility] 01-11-2024 Note LMP: postmenopausal [facility] 01-08-2024 Evaluation + Plan note Future Scheduled TestsMA Mammo Screening Bilateral w/ Ghanshyam 01/08/24 [facility] 11-07-2023 Nurse Note Post procedure cramping, relieved by passing flatus. Otherwise, uneventful recovery. Discharge paperwork reviewed with patient and family with hard copy provided to patient for personal records. Patient verbalized understanding and declined any questions or concerns prior to discharge. Vital signs stable. Patient expressed readiness to discharge. Personal belongings returned. PIV removed without complication. Patient able to tolerate diet robi archie, without difficulty, prior to discharge. Patient ambulated to restroom, independently, without difficulty. Patient taken to [facility], by endoscopy staff, via wheelchair. No acute distress noted. [facility] 11-07-2023 Nurse Note Post procedure cramping, relieved by passing flatus. Otherwise, uneventful recovery. Discharge paperwork reviewed with patient and family with hard copy provided to patient for personal records. Patient verbalized understanding and declined any questions or concerns prior to discharge. Vital signs stable. Patient expressed readiness to discharge. Personal belongings returned. PIV removed without complication. Patient able to tolerate diet robi archie, without difficulty, prior to discharge. Patient ambulated to restroom, independently, without difficulty. Patient taken to [facility], by endoscopy staff, via wheelchair. No acute distress noted. Pt provided with warm blankets.Call hauser within reach.IV established, fluids running.No signs of distress observed by RN upon leaving bedside. Pt laying in bed with easy respirations.Plan for consent to be obtained in intra-op room. documented in this encounter [facility] 11-07-2023 History and physical note HISTORY AND PHYSICAL EXAMINATION SERVICE DATE: 11/07/2023 SERVICE TIME: 7:41 AM PRIMARY CARE PHYSICIAN: No primary care provider on file. HPI: This is a 58 year old female who presents with a PMH significant for who presents for a planned Routine Colonoscopy. She currently denies any Chest Pain, palpitations, SOB, headache, dizziness, lightheadedness, change in vision or hearing, numbness or tingling in the hands or feet, abdominal pain, N/V/C/D, dysuria or hematuria, seizures or syncope. PAST MEDICAL HISTORY Diagnosis Date Colon polyps 5y screening cycle-father with colon cancer Condyloma acuminatum Dermatitis rubber and stress. allergy to Mixed dialkyl thioureas, nickel, ?latex, ?bacitracin Kidney stone Melanoma in situ of skin of trunk (HCC) 2012 abdomen Osteopenia 2015 PAST SURGICAL HISTORY Procedure Laterality Date COLONOSCOPY & POLYPECTOMY 2001, 2005, 2006 hyperplastic polyp, JUVENILE-TYPE POLYP, negative COLONSCOPY SCREENING HIGH RISK 09/25/2013 ligate internal hemorrhoids ENDOMETRIAL BX W/WO ENDOCERVIX BX W/O DILAT SPX 06/02/2010 benign HYSTEROSCOPY BX W/WO D&C 09/15/14 thickened endometrium LIG/TRNSXJ FLP TUBE ABDL/VAG APPR UNI/BI 01/29/04 PAST SURGICAL HISTORY OF 12/2012 melanoma insitu, mid abdomen REMOVAL OF IMPACTED TOOTH - COMPLETELY BONY 1981 wisdom teeth extracted FAMILY HISTORY Problem Relation Age of Onset Colon Cancer Father 59 Colon Cancer Paternal Grandfather 60 Diabetes Maternal Uncle No Family History Daughter No breast/semiconductor wafers etcher stripper cancer other (Crohns) Daughter Social History Tobacco Use Smoking status: Never Smokeless tobacco: Never Substance Use Topics Alcohol use: Yes Alcohol/week: 7.3 standard drinks of alcohol Types: 4 Glasses of Wine (5oz), 2 Cans of Beer (12oz), 1 Mixed Drinks per week Comment: socially Drug use: No (Not in a hospital admission) ALLERGIES Allergen Reactions Bacitracin Rash Patch test positive Latex Rash, Hives Penicillins Rash, Hives Current Outpatient Medications Medication Sig Dispense Refill peg 3350-Electrolytes (GOLYTELY) 236-22.74-6.74 -5.86 gram suspension Refer to printed patient instructions that will be mailed to you. 4000 mL 0 No current facility-administered medications for this encounter. COMPLETE REVIEW OF SYSTEMS: REVIEW OF SYSTEMS: GENERAL: No weight loss, malaise or fevers HEENT: Negative for frequent or significant headaches, No changes in hearing or vision, no nose bleeds or other nasal problems NECK: Negative for lumps, goiter, pain and significant neck swelling RESPIRATORY: Negative for cough, hemoptysis, wheezing, dyspnea or shortness of breath CARDIOVASCULAR: Negative for chest pain, leg swelling, claudication, palpitations GI: Positive for Colon PolypsNo abdominal pain, nausea, vomiting, black or tarry stools, diarrhea, or heartburn. : No history of dysuria, frequency or incontinence MUSCULOSKELETAL: Negative for joint pain or swelling, back pain or muscle pain SKIN: Negative for lesions, rash, and itching PSYCH: Negative for hallucination, depression, anxiety. HEMATOLOGY/LYMPHOLOGY: Negative for prolonged bleeding, bruising easily or swollen nodes ENDOCRINE: Negative for cold or heat intolerance, polyuria, polydipsia and goiter NEURO: No history of headaches, syncope, paralysis, seizures or tremors OBJECTIVE LMP 07/30/2014 VS: BP: 140/85 Pulse: 68 Respirations: 18 Temperature: 98.6 Pulse Ox: 98% PHYSICAL EXAM: GENERAL: A&Ox3, No Acute distress, cooperative SKIN: Skin color, texture, turgor normal. No rashes or lesions HEAD/SINUSES: No significant findings LUNGS: Lungs clear to auscultation bilaterally CARDIAC: Normal S1 and S2; no rubs, murmurs, or gallops appreciated on exam ABDOMEN: BS+ in all quadrants, abdomen soft, non-tender, and without guarding EXTREMITIES: Extremities normal, no deformities, edema, clubbing or skin discoloration, No ulcers NEURO: Motor and Sensation grossly intact PULSES: Distal pulses are positive and 2+ ASSESSMENT :Colon Polyps PLAN: Routine Colonoscopy I spent a total of 10 minutes on the date of the service which included preparing to see the patient, [id number] patient care, completing clinical documentation, obtaining and/or reviewing separately obtained history, performing a medically appropriate examination, counseling and educating the patient/family/caregiver, and ordering medications, tests, or procedures. SIGNATURE: Kristina Herrera PA-C PATIENT NAME: Nadine Pierce DATE: 11/07/2023 TIME: 7:41 AM [facility] 11-07-2023 History and physical note HISTORY AND PHYSICAL EXAMINATION SERVICE DATE: 11/07/2023 SERVICE TIME: 7:41 AM PRIMARY CARE PHYSICIAN: No primary care provider on file. HPI: This is a 58 year old female who presents with a PMH significant for who presents for a planned Routine Colonoscopy. She currently denies any Chest Pain, palpitations, SOB, headache, dizziness, lightheadedness, change in vision or hearing, numbness or tingling in the hands or feet, abdominal pain, N/V/C/D, dysuria or hematuria, seizures or syncope. PAST MEDICAL HISTORY Diagnosis Date Colon polyps 5y screening cycle-father with colon cancer Condyloma acuminatum Dermatitis rubber and stress. allergy to Mixed dialkyl thioureas, nickel, ?latex, ?bacitracin Kidney stone Melanoma in situ of skin of trunk (HCC) 2012 abdomen Osteopenia 2015 PAST SURGICAL HISTORY Procedure Laterality Date COLONOSCOPY & POLYPECTOMY 2001, 2005, 2007 hyperplastic polyp, JUVENILE-TYPE POLYP, negative COLONSCOPY SCREENING HIGH RISK 09/25/2013 ligate internal hemorrhoids ENDOMETRIAL BX W/WO ENDOCERVIX BX W/O DILAT SPX 06/02/2010 benign HYSTEROSCOPY BX W/WO D&C 09/15/14 thickened endometrium LIG/TRNSXJ FLP TUBE ABDL/VAG APPR UNI/BI 01/29/04 PAST SURGICAL HISTORY OF 12/2012 melanoma insitu, mid abdomen REMOVAL OF IMPACTED TOOTH - COMPLETELY BONY 1981 wisdom teeth extracted FAMILY HISTORY Problem Relation Age of Onset Colon Cancer Father 59 Colon Cancer Paternal Grandfather 60 Diabetes Maternal Uncle No Family History Daughter No breast/semiconductor wafers etcher stripper cancer other (Crohns) Daughter Social History Tobacco Use Smoking status: Never Smokeless tobacco: Never Substance Use Topics Alcohol use: Yes Alcohol/week: 7.3 standard drinks of alcohol Types: 4 Glasses of Wine (5oz), 2 Cans of Beer (12oz), 1 Mixed Drinks per week Comment: socially Drug use: No (Not in a hospital admission) ALLERGIES Allergen Reactions Bacitracin Rash Patch test positive Latex Rash, Hives Penicillins Rash, Hives Current Outpatient Medications Medication Sig Dispense Refill peg 3350-Electrolytes (GOLYTELY) 236-22.74-6.74 -5.86 gram suspension Refer to printed patient instructions that will be mailed to you. 4000 mL 0 No current facility-administered medications for this encounter. COMPLETE REVIEW OF SYSTEMS: REVIEW OF SYSTEMS: GENERAL: No weight loss, malaise or fevers HEENT: Negative for frequent or significant headaches, No changes in hearing or vision, no nose bleeds or other nasal problems NECK: Negative for lumps, goiter, pain and significant neck swelling RESPIRATORY: Negative for cough, hemoptysis, wheezing, dyspnea or shortness of breath CARDIOVASCULAR: Negative for chest pain, leg swelling, claudication, palpitations GI: Positive for Colon PolypsNo abdominal pain, nausea, vomiting, black or tarry stools, diarrhea, or heartburn. : No history of dysuria, frequency or incontinence MUSCULOSKELETAL: Negative for joint pain or swelling, back pain or muscle pain SKIN: Negative for lesions, rash, and itching PSYCH: Negative for hallucination, depression, anxiety. HEMATOLOGY/LYMPHOLOGY: Negative for prolonged bleeding, bruising easily or swollen nodes ENDOCRINE: Negative for cold or heat intolerance, polyuria, polydipsia and goiter NEURO: No history of headaches, syncope, paralysis, seizures or tremors OBJECTIVE LMP 07/30/2014 VS: BP: 140/85 Pulse: 68 Respirations: 18 Temperature: 98.6 Pulse Ox: 98% PHYSICAL EXAM: GENERAL: A&Ox3, No Acute distress, cooperative SKIN: Skin color, texture, turgor normal. No rashes or lesions HEAD/SINUSES: No significant findings LUNGS: Lungs clear to auscultation bilaterally CARDIAC: Normal S1 and S2; no rubs, murmurs, or gallops appreciated on exam ABDOMEN: BS+ in all quadrants, abdomen soft, non-tender, and without guarding EXTREMITIES: Extremities normal, no deformities, edema, clubbing or skin discoloration, No ulcers NEURO: Motor and Sensation grossly intact PULSES: Distal pulses are positive and 2+ ASSESSMENT :Colon Polyps PLAN: Routine Colonoscopy I spent a total of 10 minutes on the date of the service which included preparing to see the patient, [id number] patient care, completing clinical documentation, obtaining and/or reviewing separately obtained history, performing a medically appropriate examination, counseling and educating the patient/family/caregiver, and ordering medications, tests, or procedures. SIGNATURE: Kristina Herrera PA-C PATIENT NAME: Nadine Pierce DATE: 11/07/2023 TIME: 7:41 AM documented in this encounter [facility] 11-07-2023 Nurse Note Pt provided with warm blankets.Call hauser within reach.IV established, fluids running.No signs of distress observed by RN upon leaving bedside. Pt laying in bed with easy respirations.Plan for consent to be obtained in intra-op room. [facility] 11-01-2023 Nurse Note [facility] ENDOSCOPY PRE PROCEDURE CALL Christian. I'm calling from [facility] endoscopy to provide you with the information for your surgery/procedure tomorrow. 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 Yes When anesthesia or sedation is being given: Patient instructed you must have an adult otr company truck driver because you will not be able to work or drive for the rest of the day after your test.Yes Patient instructed to have a responsible, adult otr company truck driver to take them home after the procedure Yes. Due to having sedation, there is no working or driving the day of the procedure. Your otr company truck driver is allowed to wait here with you or they may drop you off and come back to pick you up. Colonoscopy: Did you warehouse picker your bowel prep Yes Remind patient the day prior to the test they should be on a clear liquid diet all day. Clear liquids consist of liquids that you can see through (no reds or purple). Stay well hydrated all day. Do not drink just the bowel prep to clean you out. Drink all of the prep to ensure your test can be completed and polyps are not missed. Remind pt to drink at least 1 cup of clear liquids every hour even after finishing the bowel prep (up until midnight or up until 4 hours before procedure)to keep yourself hydrated and to flush the prep through your system. If pt has eaten solid foods-contact endoscopist and verify if they wish to proceed. Patient instructed: Do not eat anything the morning of the procedure, including gum, hard candy and mints.Yes Patient instructed not bring any valuables, jewelry, or drake and wear comfortable clothing. Do not wear makeup, lotion, or finger cayman islander. Yes Patient instructed: Please bring a list of medications including over the counter, vitamin, and herbals. If you are on inhalers, please do them in the morning before your test and bring them with you.Yes Blood pressure, seizure, or thyroid medications may be taken with a couple sips of water ONLY 4 hours prior to arrival time. Is the patient on blood thinners?no If so,verify if pt contacted the prescribing doctor to see how long they may hold blood thinners prior to procedure. Are you diabetic?No If so, advise pt to contact prescribing doctor to verify if any modifications are needed for insulin and/or pills Reminder:diabetic medication instructions should be given by the patient's ordering physician. If blood sugar drops, they can have CLEAR liquids to bring it up until 3 hours prior to arrival time. Hospitalizations: No Procedure and/or bowel prep instructions given to patient and questions answered: Yes, and they verbalized their understanding of instructions given Any barriers to Patient learning (confusion? 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 Please complete your Pre-Check In paperwork in My Chart if applicable. If patient needs to reschedule please call: [phone] [facility] phone number: [phone] Type of instruction given: Verbal by telephone contact. [facility] 11-01-2023 Nurse Note [facility] ENDOSCOPY PRE PROCEDURE CALL Christian. I'm calling from [facility] endoscopy to provide you with the information for your surgery/procedure tomorrow. 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 Yes When anesthesia or sedation is being given: Patient instructed you must have an adult otr company truck driver because you will not be able to work or drive for the rest of the day after your test.Yes Patient instructed to have a responsible, adult otr company truck driver to take them home after the procedure Yes. Due to having sedation, there is no working or driving the day of the procedure. Your otr company truck driver is allowed to wait here with you or they may drop you off and come back to pick you up. Colonoscopy: Did you warehouse picker your bowel prep Yes Remind patient the day prior to the test they should be on a clear liquid diet all day. Clear liquids consist of liquids that you can see through (no reds or purple). Stay well hydrated all day. Do not drink just the bowel prep to clean you out. Drink all of the prep to ensure your test can be completed and polyps are not missed. Remind pt to drink at least 1 cup of clear liquids every hour even after finishing the bowel prep (up until midnight or up until 4 hours before procedure)to keep yourself hydrated and to flush the prep through your system. If pt has eaten solid foods-contact endoscopist and verify if they wish to proceed. Patient instructed: Do not eat anything the morning of the procedure, including gum, hard candy and mints.Yes Patient instructed not bring any valuables, jewelry, or drake and wear comfortable clothing. Do not wear makeup, lotion, or finger cayman islander. Yes Patient instructed: Please bring a list of medications including over the counter, vitamin, and herbals. If you are on inhalers, please do them in the morning before your test and bring them with you.Yes Blood pressure, seizure, or thyroid medications may be taken with a couple sips of water ONLY 4 hours prior to arrival time. Is the patient on blood thinners?no If so,verify if pt contacted the prescribing doctor to see how long they may hold blood thinners prior to procedure. Are you diabetic?No If so, advise pt to contact prescribing doctor to verify if any modifications are needed for insulin and/or pills Reminder:diabetic medication instructions should be given by the patient's ordering physician. If blood sugar drops, they can have CLEAR liquids to bring it up until 3 hours prior to arrival time. Hospitalizations: No Procedure and/or bowel prep instructions given to patient and questions answered: Yes, and they verbalized their understanding of instructions given Any barriers to Patient learning (confusion? 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 Please complete your Pre-Check In paperwork in My Chart if applicable. If patient needs to reschedule please call: [phone] [facility] phone number: [phone] Type of instruction given: Verbal by telephone contact. documented in this encounter [facility] 09-20-2023 Telephone encount er Note Called patient to verify pharmacy [facility] is preferred Orders pended Fanny Serra RN Speciality Legal Process Specialist [facility] 09-20-2023 Miscellaneous Notes Formattin g of this note might be different from the original. Called patient to verify pharmacy [facility] pharmacy is preferred Orders pended Fanny Serra RN Speciality Legal Process Specialist Patient is calling to schedule colonoscopy with Dr. Kent Her last colonoscopy was with Dr. Kent in 08/2013 and then 03/2011 before that. Can you please place an order and also recommend prep? Thank you! documented in this encounter [facility] 09-20-2023 Telephone encount er Note Patient is calling to schedule colonoscopy with Dr. Kent Her last colonoscopy was with Dr. Kent in 08/2013 and then 03/2011 before that. Can you please place an order and also recommend prep? Thank you! [facility] 07-27-2023 History and physi zehra note Note Date/Time July 27, 2023 11:15am [facility] Medical Records Department [address] [place] [address] History & Physical Exam 07/27/23 1114 MR#: [id number] Acct: [id number] Name: NADINE PIERCE Rep #:[id number] : 1965 58 From: Chaka Hernandez MD PCP: Jen Ortiz DO Status:REG S DC Location: [place] [address] HPI - General HPI Narrative NADINE PIERCE, is a 58 F who presents for left knee arthroscopy, medial meniscus repair. no changes to h and p. left knee marked. rab post op instructions and narcotic counselling. ok to proceed. MR#: [id number] Acct: [id number] Name: NADINE PIERCE Rep #: [id number] : 1965 Provider: Dr. Chaka Hernandez MD Age/Sex: 58/F [place] [facility] [place] [place]: Signed Intake Vital Signs 07/19/2407:03 Height 5 ft 4 in Weight: 122 lb BMI 20.9 Intake Visit Reasons: LEFT KNEE Chief Complaint: Left knee pain Accompanied by: Self Is patient in pain?: No Allergies latex Allergy (Intermediate, Verified 07/20/23 15:44) RashPenicillins Allergy (Intermediate, Verified 07/20/23 15:44) HIVES ?? Medications calcium carbonate 500 mg-vitamin D3 3.125 mcg (125 unit) tablet 1 tab PO DAILY supplement 11/23/20 [History Confirmed 07/20/23] hydrocortisone 0.25 % topical cream 1 applic topical DAILY PRN PRN eczema 11/23/20 [History Confirmed 07/20/23] etodolac 500 mg tablet 500 mg PO BID #40 tabs 07/19/23 [Rx Confirmed 07/20/23] PFSH Medical History (Updated 07/20/23 @ 16:05 by Chaka Hernandez MD) Acute medial meniscus tear of left knee Alcohol use Eczema Headaches, cluster History of melanoma History of stress test Non-smoker Post-menopausal TMJ (temporomandibular joint disorder) Surgical History History of ethmoidectomy History of tubal ligation Family History Other Colon cancer Social History Smoking Status: Never smoker alcohol intake: current alcohol intake frequency: holidays/special occasions only substance use type: does not use what type of physical activity do you participate in: walking and bicycling frequency: 5-6 times per week HPI LEFT KNEE Details: This documentation accurately reflects the service provided and the decisions made by me, Dr. Chaka Hernandez MD 07/20/23 1405. Part of today?s visit was documented by [ ], acting as scribe. NADINE PIERCE is a 58 year old F here today for 5 days ago, jumping at a moth, felt a pop PM in the knee, 3 weeks of developing pain, has been NWB since monday. 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 hikes up to [address] [facility]. some catching. tried nsaids 3 weeks, still on crutches, self directed exercises. Ortho Exam General General: Yes no acute distress Neurologic: Yes alert and Yes oriented x3 Psychologic: Yes reasonable and appropriate Right Knee Patella Translation: 2 Left Knee Skin/Wound: Yes CDI, No ecchymosis, No erythema and No swelling Knee ROM: Yes ROM-Flexion 0-140 Examination: Yes med jt line tenderness, No Lat jt line tenderness, No TTP inf pole patella, Yes Crepitus, Yes Pain with flexion, Yes Lara's Test, No TTP Patellar tendon, No TTP Tibial tubercle, No TTP Pes Anserine and No Illiotibial band tenderness Quad Atrophy: No Stability: NML: Anterior Drawer, NML: Yecenia, NML: Posterior Drawer, NML: Valgus 0, NML: Valgus 30, NML: Varus 0 and NML: Varus 30 Patella Translation: 2 Patellar Tilt Normal: Yes Patella Grind: Yes KNEE: nvi, antalgic gait, normal alignment Supplemental Info [facility] [address] [place] [address] Knee 4 or More Views MR#: [id number] Acct: [id number] Name: NADINE PIERCE Rep #: [id number] : 1965 F 58 From: Trevon Soni MD PCP: Jen Ortiz DO Status: DEP AMB Study: Knee 4 or More Views Date of Exam: 07/19/23 Exam# [id number] Ordering Dr: Darien Contreras DO STUDY: X-RAY - LEFT KNEE REASON FOR EXAM: Female, 58 years old. Pain. Unable to bear weight. TECHNIQUE: 4 view(s) of the knee. COMPARISON: None. FINDINGS: Normal visualized distal femur. Normal visualized proximal tibia and fibula. Normal proximal tibiofibular articulation. Normal medial femorotibial compartment. Normal lateral femorotibial compartment. Normal patellofemoral articulation. Several small well-corticated bony fragments are seen within the joint space. This may represent loose bodies within the joint. The soft tissue structures are unremarkable. RAD/Knee 4 or More Views IMPRESSION: Well-defined corticated bony densities within the knee joint suggestive of intra-articular loose bodies. Electronically Signed: Trevon Soni MD at 14:55 EDT , [facility] Imaging Services [address] [place] [address] Lower Ext Joint Only (Routine) MR#: [id number] Acct: [id number] Name: NADINE PIERCE Rep #: [id number] : 1965 F 58 From: Neal Galvez MD PCP: Jen Ortiz DO Status: REG CLI Study: Lower Ext Joint Only (Routine) Date of Exam: 07/20/23 Exam# [id number] Ordering Dr: Darien Contreras DO STUDY: MRI LEFT KNEE REASON FOR EXAM: Female, 58 years old. Left lateral / posterior knee pain, x 3 weeks, moderate pain with mobility x 2 weeks, turned to severe when when twisting 5 days ago. TECHNIQUE: Standardized fat and water weighted pulse sequences were obtained in all 3 orthogonal planes. COMPARISON: Left knee radiographs dated 07/19/2023. FINDINGS: There is a partial tear of the posterior medial meniscal root. There is low-grade chondromalacia along the anterior to mid weightbearing surface of the medial femoral condyle with underlying subchondral marrow edema (sagittal T2 series 5 images 10-11). Normal medial collateral ligamentous complex (MCL). Normal distal semimembranosus, gracilis and semitendinosus tendons. Normal lateral meniscus. Normal hyaline cartilage of the lateral femorotibial compartment. Normal lateral femoral condyle and tibial plateau. Normal proximal tibiofibular articulation. Normal lateral collateral (fibular) ligament. Normal popliteus tendon. Normal biceps femoris tendon. Normal anterior cruciate ligament (ACL). Normal posterior cruciate ligament (PCL). There is moderate to high-grade chondromalacia along the medial patellar facet. Congruent patellofemoral articulation. Normal medial and lateral patellar retinaculum. Normal quadriceps tendon. Normal patellar tendon. Normal Hoffa''s fat pad. There is a cluster of low signal calcified loose bodies in the posterior femorotibial joint recess, measuring up to 6 mm in diameter. There is a tiny joint effusion. There is no significant popliteal cyst. The soft tissues are unremarkable. There is no acute fracture. MRI/Lower Ext Joint Only (Routine) IMPRESSION: Partial tear of the posterior medial meniscal root. Low-grade chondromalacia along the anterior to mid weightbearing surface of the medial femoral condyle with underlying subchondral marrow edema. 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 Cluster of calcified loose bodies in the posterior femorotibial joint recess, measuring up to 6 mm in diameter. Tiny joint effusion. Electronically Signed: Neal Galvez MD at 10:52 EDT , agree w rad report Coding Level of Care Code Off vis,new,level 3 Diagnoses Patellofemoral arthrosis M17.10 Acute medial meniscus tear of left knee S83.242A Assessment and Plan Assessment and Plan (1) Patellofemoral arthrosis: Status: Acute Plan: 58-year-old female with a left knee medial meniscus root tear. The cartilage looks well-preserved in the medial compartment normal alignment. This appears to be an acute tear with mechanical symptoms and difficulty ambulating. The patient is extremely active doing very long miles long hikes and 10 miles of walking a day this is a significant change from her baseline. Patient counseleddiagnosis prognosis and treatment options which include but not limited to rest ice anti-inflammatories active modifications cortisone injection bracing physical therapy as well as surgery. My hands this would be in the form of a left knee arthroscopy, medial meniscus repair. This would be a root repair. Will try to get the Arthrex all suture implant for this if not we will do this through a standard drill hole and either button or an suture anchor fixation. Iexplained the postoperative recovery 6 weeks of nonweightbearing after this 3 to4 months for recovery. The patient understands wishes to proceed and signed theconsent form for surgery. Pros and cons risks and benefits were discussed with the patient including but not limited to infection, pain, stiffness, bleeding, damage to surrounding structures, neurovascular injury, recurrence or retear, failure or wear of hardware or fixation, instability, fracture, deep vein thrombosis and pulmonary embolism, anesthetic risks, , patient dissatisfaction, need for further surgery and other risks. Patient understood and wished to proceed with surgery,and signed the informed consent documentation. (2) Acute medial meniscus tear of left knee: Status: Acute [facility] Medical History Acute medial meniscus tear of left knee Alcohol use Cancer Eczema Headaches, cluster History of melanoma History of stress test Non-smoker PONV (postoperative nausea and vomiting) Post-menopausal TMJ (temporomandibular joint disorder) Home Medications hydrocortisone 0.25 % topical cream 1 applic topical DAILY PRN PRN eczema 11/23/20 [History Last Taken Unknown] etodolac 500 mg tablet 500 mg PO BID #40 tabs 07/19/23 [Rx Last Taken Unknown] Allergy/AdvReac Type Severity Reaction Status Date / Time latex Allergy Intermediate Rash Verified 07/27/23 10:38 Penicillins Allergy Intermediate HIVES ?? Verified 07/27/23 10:38 Family History Other Colon cancer Surgical History History of ethmoidectomy History of tubal ligation Social History Smoking Status: Never smoker alcohol intake: current alcohol intake frequency: holidays/special occasions only substance use type: does not use what type of physical activity do you participate in: walking and bicycling frequency: 5-6 times per week Vital Signs Vital Signs Vital Signs: 07/27/23 10:56 07/27/23 10:56 Temperature 97.6 F L Temperature Source Temporal Pulse Rate 62 Respiratory Rate 17 Respiratory Pattern Normal Blood Pressure 128/88 H Blood Pressure Mean 101 Blood Pressure Source Monitor Blood Pressure Position Semi-Fowlers Blood Pressure Location Left Arm Pulse Ox 100 Oxygen Delivery Method Room Air Weight Weight: 126 lb 1.671 oz Body Mass Index (BMI) 21.6 07/27/23 1127 <Electronically signed by Chaka Hernandez MD> Cosigner Signature (if applicable): CC: Dr. Chaka Hernandez MD; Jen Ortiz DO~ Signed [facility] Work Phone: 1(389) 528-938503-28-2024 Procedure [facility] Discharge summary Author Chaka Hernandez [facility] July 27, 2023 1:21pm Note Date/Time July 27, 2023 1:1 9pm [facility] Medical Records Department [address] [place] [id number] Instructions for Home/Discharge Instructions 07/27/23 1318 MR#: [id number] Acct: [id number] Name: NADINE PIERCE Rep #:[id number] : 1965 58 From: Chaka Hernandez MD PCP: Jen Ortiz DO Status:REG S DC Discharge Instructions Diet Discharge Diet: No restrictions Activity Discharge Activity: Use Walker and Use Crutches Ice area for (Minutes): 10 Weight Bearing Status: Toe touch weight bearing Keep extremity elevated above heart level: Operative Extremity Dressing / Incision Call your doctor if your incision/area has: Continuous Slow Oozing, Sudden Increased Bleeding, Increased Pain/ Swelling, Increased Redness, Foul Smelling Discharge and Swelling at the incision site Remove Dressing in: leave in place till F/U Cleanse incision/area with: Do not get Incision Wet Additional Dressing/Incision Instructions:: if dressing needs changing, ok to change, incisions are small Follow Up Care Please Follow Up With: Chaka Hernandez MD When: next week Test Results: Test results from this visit will be discussed in further detail at your follow- up appointment, if applicable. Discharge Plan Admission Attending Provider: Chaka Hernandez Primary Care Provider: Jen Ortiz Discharge Orders/Prescriptions Prescriptions: New oxycodone-acetaminophen [Endocet] 5-325 mg tablet 1 tab PO Q4H MDD 6 PRN (Reason: pain) 5 Days Qty: 20 0RF aspirin 81 mg tablet,chewable 81 mg PO BID MDD 2 30 Days Qty: 60 0RF No Action etodolac 500 mg tablet 500 mg PO BID Qty: 40 0RF Hold Instructions: FOR SURGERY hydrocortisone 0.25 % Cream 1 applic TOPICAL DAILY PRN PRN (Reason: eczema) Referrals / Follow Up: Jen Ortiz DO [Primary Care Provider] - Chaka Hernandez MD [Med Staff - Active Staff] - Disposition Disposition (needs filled in before D/C Order can be placed): Home, Self Care 07/27/23 1321<Electronically signed by Chaka Hernandez MD>Chaka Hernandez MD CC: Jen Ortiz DO ~ Signed [facility] Work Phone: Evaluation noteNo assessment information available [facility] Work Phone: Evaluation note* Diagnosis Onset Date Resolution Status Mechanical pain of left knee acute Patellofemoral arthrosis acu te Acute medial meniscus tear of left knee acute Patellofemoral arthrosis acu te Acute medial meniscus tear of left knee acute [facility] Work Phone: Evaluation note* Diagnosis Colon cancer screening- Primary Special screening for malignant neoplasms, colon Special screening for malignant neoplasms, colon [facility] Colon cancer screening- Primary Special screening for malignant neoplasms, colon documented in this encounter [facility] course Narrative No data available for this section [facility] Discharge instructions No data available for this section [facility] Reason for referral (narrative)* Outpatient Procedure (Routine) - Pending Review Specialty Diagnoses / Procedures Referred By Contac t Referred To Contact [facility] Diagnoses Colon cancer screening Special screening for malignant neoplasms, colon Procedures COLONOSCOPY SCREENING COLONOSCOPY FLX DX W/COLLJ SPEC WHEN PFRMD Chelsea Kent MD [facility] [address] [place] [address] [facility] [address] [place] [address] Referral ID Status Reason Start Date Expiration Date Visits Requested Visits Authorized [id number] Pending Review Auto-Generat ed Referral 09/21/2023 09/19/2024 1 1 * Outpatient Procedure (Routine) - Pending Review Specialty Diagnoses / Procedures Referred By Mark farris Referred To Contact [facility] Diagnoses Colon cancer screening Procedures COLONOSCOPY SCREENING COLONOSCOPY FLX DX W/COLLJ SPEC WHEN Chelsea Song MD [address] [place] [address] [facility] [address] [address] Referral ID Status Reason Start Date Expiration Date Visits Requested Visits Authorized [id number] Pending Review Auto-Generat ed Referral 09/20/2023 09/19/2024 1 1 [facility] for referral (narrative)* Outpatient Procedure (Routine) - Closed Specialty Diagnoses / Procedures Referred By Mark farris Referred To Contact [facility] Diagnoses Colon cancer screening Procedures COLONOSCOPY SCREENING COLONOSCOPY FLX DX W/COLLJ SPEC WHEN Chelsea Song MD [address] [place] [address] [address] Referral ID Status Reason Start Date Expiration Date V isits Requested Visits Authorized [id number] Closed Auto-Generate d Referral 10/12/2023 04/30/2024 1 1 [facility] for visit Narrative* Outpatient Procedure (Routine) - Closed Specialty Diagnoses / Procedures Referred By Mark farris Referred To Contact [facility] Diagnoses Colon cancer screening Procedures COLONOSCOPY SCREENING COLONOSCOPY FLX DX W/COLLJ SPEC WHEN Chelsea Song MD [address] [place] [id number] [address] [address] Referral ID Status Reason Start Date Expiration Date V isits Requested Visits Authorized [id number] Closed Auto-Generate d Referral 10/12/2023 04/30/2024 1 1 [facility] Summary Purpose Family History No Family History Records Found Relationship Condition Age at Onset Recorded Date/T anisha Not Specified Malignant neoplasm of colon Unknown Advance Directives No Advanced Directives Records Found Advance Directive Response Recorded Date/ Time Advance Directives Yes September 09 9:35am Living Will Yes November 23, 2020 2:11pm Power of Continuous Mining Machine Coal Miner Yes November 23 2:11pm Advance Directive Response Recorded Date/ Time Name of Medical Power of Continuous Mining Machine [employer]er CHICO PIERCE, ON FILE July 25, 2023 2:01pm Advance Directives Yes July 19 11:17am Living Will Yes July 25, 2023 2:01pm Power of Continuous Mining Machine Coal Miner Yes July 24 2:01pm Chief Complaint and Reason for Visit Chief Complaint SCREENING ABNORMAL MAMMOGRAPHY Chief Complaint SCREENING Chief Complaint knee pain Room 1 Unspecified tear of unspecified meniscus, current LEFT KNEE Left knee Arthroscopy, medial menis Left knee Arthroscopy, medial menis Reason for Visit Mechanical pain of l eft knee Patellofemoral arthrosis Acute medial meniscus tear of left knee Patellofemoral arthrosis Acute medial meniscus tear of left knee Additional Source Comments INFORMATION SOURCE (unrecogn ized section and content) DATE CREATED AUTHOR 10/25/2017 [facility] DATE CREATED AUTHOR AUTHOR'S ORGANIZ ATION 11/14/2023 [facility] DATE CREATED AUTHOR AUTHOR'S ORGANIZ ATION 01/15/2024 [facility] DATE CREATED AUTHOR AUTHOR'S ORGANIZ ATION 10/02/2024 [facility] Goals (unrecognized section and content) Goals may be documented in a n alternate section No data available for this section Care Teams (unrecognized sec tion and content) Team Status: Active Member Role Status Dates Jen Ortiz , DO Primary Care Provider Active Team Status: Inactive Member Role Status Dates Jen Ortiz , DO Primary Care Provi steph, Attending Provider, Referring Provider Active Team Status: Inactive Member Role Status Dates Jen Ortiz , DO Primary Care Provider, Referring Provider Active Dr. Darien Contreras , DO Attending Provider Active Team Status: Inactive Member Role Status Dates Jen Ortiz , DO Primary Care Provider Active Dr. William Jackson MD Attending Provider Active Team Status: Inactive Member Role Status Dates Jen Ortiz , DO Primary Care Provider, Referring Provider Active Chaka Hernandez MD Attending Provider Active Team Status: Active Member Role Status Dates eJn Ortiz , DO Primary Care Provider Active Chaka Hernandez MD Attending Provider, Referring Provider, Other Provider Active Team Status: Active Member Role Status Dates Jen Ortiz , DO Primary Care Provider Active Dr. Darien Contreras , DO Attending Provider, Referring Provider Active Team Status: Inactive Member Role Status Dates Jen Ortiz , DO Primary Care Provider Active Chaka Hernandez MD Attending Provider, Referring Prov ider Active Team Status: Inactive Member Role Status Dates Jen Ortiz , DO Primary Care Provider Active Dr. Darien Contreras , DO Attending Provider, Referring Provider Active Source Comments (unrecognize d section and content) In the event this informatio n is protected by the Federal Confidentiality of Alcohol and Drug Abuse Patient Records regulations: The Federal rules restrict any use of the information to criminally investigate or prosecute any alcohol or drug abuse patient.[facility] the event this information is protected by the Federal Confidentiality of Alcohol and Drug Abuse Patient Records regulations: The Federal rules restrict any use of the information to criminally investigate or prosecute any alcohol or drug abuse patient.[facility] the event this information is protected by the Federal Confidentiality of Alcohol and Drug Abuse Patient Records regulations: The Federal rules restrict any use of the information to criminally investigate or prosecute any alcohol or drug abuse patient.[facility] Reason for Visit (unrecogniz ed section and content) Reason Comments Procedure FOR RECORDS PERTAINING TO PATIENTS WHO ARE OR HAVE BEEN ENROLLED IN A CHEMICAL DEPENDENCY/SUBSTANCEABUSE PROGRAM, SOME INFORMATION MAY BE OMITTED. This clinical summary was aggregated from multiple sources. Caution should be exercised in using it in the provision of clinical care. This summary normalizes information from multiple sources, and as a consequence, information in this document may materially change the coding, format and clinical context of patient data. In addition, data may be omitted in some cases. CLINICAL DECISIONS SHOULD BE BASED ON THE PRIMARY CLINICAL RECORDS. [employer] [facility]. provides no warranty or guarantee of the accuracy or completeness of information in this document.
== END | disposition home or self-care (01) ==
LOC: OPBI 06:59
PROVIDERS: PCP Nurse Practitioner Family; Referring Provider Nurse Practitioner Family; Visit Provider Nurse Practitioner Family
DX: Z12.31 Encounter for screening mammogram for malignant neoplasm of breast (principal)
CPT/HCPCS: 77063; 77067